=== PATIENT | female | born 1960 | race Caucasian/White ===

== ENCOUNTER 2020-04-08 09:33 | Outpatient (REF) | payer OTHER, SELFPAY ==
[2020-04-08 11:29] LABS: MANUAL DIFF FLAG NO
[2020-04-08 11:42] LABS: Basophils Percent Auto 0.6 % (0-2); Eosinophils Absolute Auto 0.1 X10*3/uL (0.0-0.4); Eosinophils Percent Auto 1.9 % (0-4); Hematocrit 41.1 % (37-47); Hemoglobin 13.1 g/dl (12.0-16.0); Imm Gran Abs Auto 0.02 X10*3/uL (0.00-0.03); Imm Gran Pct Auto 0.3 % (0.0-0.4); Lymphocytes Percent Auto 31.9 % (20-40); Mean Corpuscular HGB Conc 31.9 g/dl (31.0-35.0); Mean Corpuscular Hemoglobin 29.4 pg (27.0-33.0); Mean Corpuscular Volume 92.4 fL (80-98); Mean Platelet Volume 9.6 fL (9.4-12.3); Monocytes Absolute Auto 0.5 X10*3/uL (0.1-1.2); Monocytes Percent Auto 7.2 % (2-11); Neutrophils Absolute Auto 3.6 X10*3/uL (2.0-8.3); Neutrophils Percent Auto 58.1 % (45-73); Platelet Count 315 X10*3/uL (160-400); Red Blood Count 4.45 X10*6/uL (4.20-5.50); Red Cell Distribution Width 12.7 % (11.0-16.0); White Blood Count 6.2 X10*3/uL (4.8-10.8)
[2020-04-08 12:37] LABS: Anion Gap 14 (12-20); Blood Urea Nitrogen 10 mg/dL (9-16); Calcium 9.1 mg/dL (8.4-10.2); Carbon Dioxide 26 mmol/L (22-29); Chloride 106 mmol/L (96-108); Cholesterol 173 mg/dL; Estimated Glomerular Filt Rate > 60; Glucose Fasting 110 mg/dL (60-99); HDL Cholesterol 48 mg/dL; LDL Cholesterol Calculated 99 mg/dl; Potassium 4.9 mmol/l (3.3-5.1); Sodium 141 mmol/L (135-145); Triglycerides 131 mg/dL
== END 2020-04-08 09:34 | disposition home or self-care (01) ==
LOC: HO.HMGCLDS 09:33
PROVIDERS: PCP Internal Medicine; Visit Provider Internal Medicine
DX: E78.9 Disorder of lipoprotein metabolism, unspecified (principal); F33.2 Major depressive disorder, recurrent severe without psychotic features
CPT/HCPCS: 36415; 80048; 80061; 85025

== ENCOUNTER 2020-11-03 11:39 | Outpatient (REF) | payer OTHER, SELFPAY ==
[2020-11-03 14:43] LABS: Alanine Aminotransferase 33 U/L (0-31); Alkaline Phosphatase 76 U/L (39-117); Anion Gap 15 (12-20); Aspartate Amino Transferase 24 U/L (5-31); Bilirubin Total 0.6 mg/dL (0.0-1.0); Blood Urea Nitrogen 10 mg/dL (9-16); Calcium 10.2 mg/dL (8.4-10.2); Carbon Dioxide 24 mmol/L (22-29); Chloride 105 mmol/L (96-108); Cholesterol 172 mg/dL; Estimated Glomerular Filt Rate > 60; Glucose Fasting 139 mg/dL (60-99); HDL Cholesterol 54 mg/dL; LDL Cholesterol Calculated 96 mg/dl; Potassium 5.3 mmol/L (3.3-5.1); Sodium 139 mmol/L (135-145); Total Protein 7.9 g/dL (6.5-8.0); Triglycerides 114 mg/dL
== END 2020-11-03 11:40 | disposition home or self-care (01) ==
LOC: HO.HMGCLDS 11:39
PROVIDERS: PCP Internal Medicine; Visit Provider Internal Medicine
DX: Z00.01 Encounter for general adult medical examination with abnormal findings (principal); E78.9 Disorder of lipoprotein metabolism, unspecified; E66.09 Other obesity due to excess calories
CPT/HCPCS: 36415; 80053; 80061

== ENCOUNTER 2020-11-04 08:38 | Outpatient (REF) | payer OTHER, SELFPAY ==
[2020-11-04 12:22] LABS: Estimated Average Glucose 114 mg/dL; Hemoglobin A1c % 5.6 %
== END 2020-11-04 08:39 | disposition home or self-care (01) ==
LOC: HO.HMGCLDS 08:38
PROVIDERS: PCP Internal Medicine; Visit Provider Internal Medicine
DX: R73.01 Impaired fasting glucose (principal)
CPT/HCPCS: 36415; 83036

== ENCOUNTER 2020-12-09 13:06 | Outpatient (REF) | payer OTHER, SELFPAY ==
--- NOTE | ~2020-12-09 | MM_ITS ---
EXAMINATION: MM SCREENING DIGITAL BREAST TOMOSYNTHESIS, BILATERAL CLINICAL INFORMATION: Screening. Asymptomatic. The lifetime risk of breast cancer based on the Tyrer-Cuzick Model is 9.8%. COMPARISON: Mammography: September 05, 2018 and studies dating back to January 06, 2009 TECHNIQUE: Digital breast tomosynthesis is performed in both the craniocaudal and mediolateral oblique views along with computer-aided detection (CAD). Synthesized 2D images are generated from the tomosynthesis. FINDINGS: There are scattered areas of fibroglandular density (ACR BI-RADS breast composition Category b). There are no new significant masses, abnormal calcifications, or other abnormalities. Some stable circumscribed densities are present likely related to intramammary lymph nodes. MM/MM tomosynthesis screening BI IMPRESSION: There are no significant changes from prior study. ASSESSMENT: BI-RADS 2: Benign RECOMMENDATION: Routine annual mammography screening. This patient's information was entered into a reminder system with a target due date for their next mammogram.
== END 2020-12-09 13:07 | disposition home or self-care (01) ==
LOC: HO.MAMMO 13:06
PROVIDERS: PCP Internal Medicine; Visit Provider Internal Medicine
DX: Z12.31 Encounter for screening mammogram for malignant neoplasm of breast (principal)
CPT/HCPCS: 77063; 77067

== ENCOUNTER 2020-12-14 15:57 | Emergency (ER) | payer OTHER, SELFPAY ==
--- NOTE | 2020-12-14 | ECG_ITS ---
Test Reason : DIZZINESS Blood Pressure : / mmHG Vent. Rate : 070 BPM Atrial Rate : 070 BPM P-R Int : 130 ms QRS Dur : 082 ms QT Int : 406 ms P-R-T Axes : 048 008 046 degrees QTc Int : 438 ms Normal sinus rhythm Normal ECG When compared with ECG of 20-FEB-2018 13:01, No significant change was found Referred By: Generic ED Physician Electronically Signed By:Aamir Springer
--- NOTE | ~2020-12-14 | CT_ITS ---
EXAMINATION: CT HEAD WITHOUT CONTRAST CLINICAL INFORMATION: New onset dizziness COMPARISON: None TECHNIQUE: Contiguous axial imaging was performed from the skull base to vertex without intravenous administration of contrast. This CT examination was performed using dose optimization techniques as appropriate, variously including the following: *Automated exposure control *Adjustment of mA and/or kV according to patient size (this includes techniques or standardized protocols for targeted exams where dose is matched to indication/reason for exam; i.e. extremities or head) *Use of iterative reconstruction technique DLP: 665 mGy-cm FINDINGS: There is no evidence of acute intracranial hemorrhage or territorial infarction. No abnormal mass effect or midline shift is seen. Zuñiga to white matter differentiation is well preserved. No extra-axial fluid collections are identified. The ventricles are normal in size. There is no abnormal attenuation within the brain parenchyma. The osseous structures and soft tissues are normal. Mild mucosal thickening in the right maxillary sinus. Right-sided dental implants breach the inferior most aspect of the right maxillary sinus. CT/CT head/brain wo con IMPRESSION: No acute intracranial pathology.
--- NOTE | ~2020-12-14 | XR_ITS ---
EXAMINATION: XR CHEST CLINICAL INFORMATION: Dizziness COMPARISON: 02/20/2018 TECHNIQUE: Frontal view of the chest was obtained. FINDINGS: No significant abnormality is noted involving the heart, lungs, mediastinum, bony thorax or soft tissues. XR/XR chest 1V IMPRESSION: Unremarkable examination.
[2020-12-14 17:15] VITALS: BP 175/79; PULSE 82; RESP 16; TEMP 37; O2SAT 97; BMI 30.2
[2020-12-14 17:43] LABS: MANUAL DIFF FLAG NO
[2020-12-14 17:47] LABS: Basophils Absolute Auto 0.1 X10*3/uL (0.0-0.2); Basophils Percent Auto 0.6 % (0-2); Eosinophils Absolute Auto 0.1 X10*3/uL (0.0-0.4); Eosinophils Percent Auto 1.3 % (0-4); Hematocrit 39.2 % (37-47); Hemoglobin 12.9 g/dl (12.0-16.0); Imm Gran Abs Auto 0.04 X10*3/uL (0.00-0.03); Imm Gran Pct Auto 0.5 % (0.0-0.4); Lymphocytes Absolute Auto 2.5 X10*3/uL (1.2-4.9); Lymphocytes Percent Auto 28.4 % (20-40); Mean Corpuscular HGB Conc 32.9 g/dl (31.0-35.0); Mean Corpuscular Hemoglobin 29.9 pg (27.0-33.0); Mean Platelet Volume 9.2 fL (9.4-12.3); Monocytes Absolute Auto 0.7 X10*3/uL (0.1-1.2); Monocytes Percent Auto 8.6 % (2-11); Neutrophils Absolute Auto 5.2 X10*3/uL (2.0-8.3); Neutrophils Percent Auto 60.6 % (45-73); Platelet Count 324 X10*3/uL (160-400); Red Blood Count 4.31 X10*6/uL (4.20-5.50); Red Cell Distribution Width 12.6 % (11.0-16.0); White Blood Count 8.6 X10*3/uL (4.8-10.8)
[2020-12-14 18:13] LABS: Anion Gap 15 (12-20); Blood Urea Nitrogen 13 mg/dL (9-16); Calcium 9.8 mg/dL (8.4-10.2); Carbon Dioxide 23 mmol/L (22-29); Chloride 107 mmol/L (96-108); Creatinine Clr Calc Pharmacy 66.6; Estimated Glomerular Filt Rate > 60; Glucose Random 101 mg/dL (60-115); Potassium 4.4 mmol/L (3.3-5.1); Sodium 141 mmol/L (135-145)
[2020-12-14 18:17] LABS: Troponin-I High Sensitivity 3.8 ng/L (<3.5-17.0)
[2020-12-14 21:02] VITALS: BP 171/67; PULSE 75; RESP 18; O2SAT 99
--- NOTE | 2020-12-14 21:20 | ED_ITS ---
HPI - Dizziness General Chief Complaint: Dizziness Stated Complaint: dizzy Time Seen by Provider: 12/14/20 21:07 Source: patient Mode of arrival: ambulatory Limitations: no limitations History of Present Illness HPI Narrative: Patient comes emergency room complaining of ?dizzy spells?. Patient states they are intermittent, happen randomly, states she feels off- balance, the room spinning, sometimes last up to 1/2 hour and then they self- resolved. Patient states it has been 5 days since she initially had the 1st dizzy spell. At this time, patient does not have dizziness. Only complaining of a headache in the front, denies visual changes, no fall Related Data Home Medications Medication Instructions Recorded Confirmed citalopram 40 mg tablet 40 mg PO DAILY 03/31/20 11/03/20 propranolol 20 mg tablet 40 mg PO BID 11/03/20 11/03/20 zolpidem 10 mg tablet 10 mg PO BEDTIME PRN 11/03/20 11/03/20 Previous Rx's Medication Instructions Recorded simvastatin 20 mg tablet 20 mg PO BEDTIME #90 tab 12/07/20 diazepam [Valium] 2 mg PO TID PRN #6 tab 12/14/20 meclizine 25 mg PO TID PRN #14 tab 12/14/20 Allergies Allergy/AdvReac Type Severity Reaction Status Date / Time codeine Allergy Unknown T3 messes Verified 11/03/20 10:59 with her stomach gabapentin Allergy Unknown hives Verified 11/03/20 10:59 Review of Systems Review of Systems: Constitutional : No Weight loss, No Fever, No Chills, No Night Sweats, No Fatigue, No Malaise ENT/Mouth : No Hearing loss, No Ear Pain, No Nasal Congestion, No Sinus Pain, No Hoarseness, No sore throat, No Rhinorrhea, No Swallowing Difficulty Eyes: No Eye Pain, No Swelling, No Redness, No Foreign Body, No Discharge, No Vision Changes Cardiovascular : No Chest Pain, No SOB, No Dyspnea on Exertion, No Orthopnea, No Edema, No Palpitations Respiratory : No Cough, No Sputum, No Wheezing, No Smoke Exposure, No Dyspnea Gastrointestinal : No Nausea, No Vomiting, No Diarrhea, No Constipation, No abdominal Pain, No Hematochezia, No Melena Genitourinary : no irregular bleeding, No Dysuria, No Urinary Frequency, No Hematuria, No Urinary Incontinence, No Urgency, No Flank Pain, No Urinary Flow Changes, No Hesitancy Musculoskeletal : No joint pain, No Myalgias, No Joint Swelling Skin : No Skin Lesions, No rash Neuro : No Weakness, No Numbness, No Paresthesias, No Loss of Consciousness, complaining of feeling off balance, room spinning, dizzy, frontal headache for 3 days Psych : No Anxiety/Panic, No Depression, No SI/HI/AH/VH, No Social Issues, Heme/Lymph: No Bruising, No Bleeding,No Lymphadenopathy Endocrine : No Polyuria, No Polydipsia, No Temperature Intolerance [facility] Past Medical History Medical History Depression, major, severe recurrence Lipid disorder Surgical History History of appendectomy History of breast biopsy History of section History of colonoscopy History of total abdominal hysterectomy Hx of cholecystectomy Family History Family History Mother Breast cancer COPD (chronic obstructive pulmonary disease) Maternal Grandmother No problems noted. Paternal Grandmother Breast cancer Maternal Aunt Breast cancer Social History Social History Alcohol intake: never Patient Tobacco Use Status: Never used Tobacco Smoked in Last 30 Days: No Use of substances other than those prescribed or required for medical reasons: No Advance Directives: No Advance Directives Information Provided: Yes Physical Exam Vital Signs: Vital Signs: Last Vital Signs Temp 98.8 F 12/14/20 22:00 Pulse 73 12/14/20 22:08 Resp 17 12/14/20 22:00 BP 191/89 H 12/14/20 22:08 Pulse Ox 99 12/14/20 22:00 Body Mass Index 30.2 Appearance: Alert. Oriented X3. No acute distress. Eyes: Pupils equal, round and reactive to light. Mild nystagmus bilaterally with head movements ENT: Pharynx normal. Neck: Normal inspection. Neck supple. No lymph nodes noted. No crepitus CVS: Normal heart rate and rhythm. Pulses normal. Normal S1 and S2 Respiratory: No respiratory distress. Breath sounds normal. No Wheezing. No rales Abdomen: Soft and nontender. No rigidity. No distention. Skin: Skin warm and dry. Normal skin color. Normal skin turgor. Extremities: No lower extremity edema. No Lacerations. No Rash Neuro: Oriented X 3. No motor deficit. No sensory deficit. Moving all extermities. No slurred speech. Course Course Course Narrative: Patient states that she no longer has headache, no longer dizzy, patient did well after 1 dose of Valium and meclizine. I discussed with the patient that her blood pressure is also on the higher side. I discussed with the patient that we can start treatment with hydrochlorothiazide, patient states that usually her blood pressure runs on the lower side, she is going to take a few blood pressures at pharmacies and then follow up with her primary care physician before starting any medications. Othe rwise, patient is asymptomatic at this time. MDM - Dizziness Lab Data Result diagrams: 12/14/20 17:36 12/14/20 17:36 Labs: Lab Results 12/14/20 12/14/20 12/14/20 Range/Units 17:36 17:36 17:36 WBC 8.6 (4.8-10.8) X10*3/uL RBC 4.31 (4.20-5.50) X10*6/uL Hgb 12.9 (12.0-16.0) g/dl Hct 39.2 (37-47) % MCV 91.0 (80-98) fL MCH 29.9 (27.0-33.0) pg MCHC 32.9 (31.0-35.0) g/dl RDW 12.6 (11.0-16.0) % Plt Count 324 (160-400) X10*3/uL MPV 9.2 L (9.4-12.3) fL Immature Gran % (Auto) 0.5 H (0.0-0.4) % Neut % (Auto) 60.6 (45-73) % Lymph % (Auto) 28.4 (20-40) % Campbell % (Auto) 8.6 (2-11) % Eos % (Auto) 1.3 (0-4) % Baso % (Auto) 0.6 (0-2) % Lymph # (Auto) 2.5 (1.2-4.9) X10*3/uL Campbell # (Auto) 0.7 (0.1-1.2) X10*3/uL Eos # (Auto) 0.1 (0.0-0.4) X10*3/uL Baso # (Auto) 0.1 (0.0-0.2) X10*3/uL Abs Immat Gran (auto) 0.04 H (0.00-0.03) X10*3/uL Absolute Neuts (auto) 5.2 (2.0-8.3) X10*3/uL Absolute Nucleated RBC 0.000 (0.0-0.012) X10*3/uL Nucleated RBC % (auto) 0.0 (0.0-0.2) /100WBC Sodium 141 (135-145) mmol/L Potassium 4.4 (3.3-5.1) mmol/L Chloride 107 (96-108) mmol/L Carbon Dioxide 23 (22-29) mmol/L Anion Gap 15 (12-20) BUN 13 (9-16) mg/dL Creatinine 0.83 (0.5-1.4) mg/dL Estim Creat Clear Calc 66.6 Estimated GFR > 60 Random Glucose 101 (60-115) mg/dL Calcium 9.8 (8.4-10.2) mg/dL Troponin I High Sens 3.8 (<3.5-17.0) ng/L 12/14/20 Range/Units 21:02 WBC (4.8-10.8) X10*3/uL RBC (4.20-5.50) X10*6/uL Hgb (12.0-16.0) g/dl Hct (37-47) % MCV (80-98) fL MCH (27.0-33.0) pg MCHC (31.0-35.0) g/dl RDW (11.0-16.0) % Plt Count (160-400) X10*3/uL MPV (9.4-12.3) fL Immature Gran % (Auto) (0.0-0.4) % Neut % (Auto) (45-73) % Lymph % (Auto) (20-40) % Campbell % (Auto) (2-11) % Eos % (Auto) (0-4) % Baso % (Auto) (0-2) % Lymph # (Auto) (1.2-4.9) X10*3/uL Campbell # (Auto) (0.1-1.2) X10*3/uL Eos # (Auto) (0.0-0.4) X10*3/uL Baso # (Auto) (0.0-0.2) X10*3/uL Abs Immat Gran (auto) (0.00-0.03) X10*3/uL Absolute Neuts (auto) (2.0-8.3) X10*3/uL Absolute Nucleated RBC (0.0-0.012) X10*3/uL Nucleated RBC % (auto) (0.0-0.2) /100WBC Sodium (135-145) mmol/L Potassium (3.3-5.1) mmol/L Chloride (96-108) mmol/L Carbon Dioxide (22-29) mmol/L Anion Gap (12-20) BUN (9-16) mg/dL Creatinine (0.5-1.4) mg/dL Estim Creat Clear Calc Estimated GFR Random Glucose (60-115) mg/dL Calcium (8.4-10.2) mg/dL Troponin I High Sens 4.0 (<3.5-17.0) ng/L Imaging Data CT scan - head: Radiologist's impression: FINDINGS: There is no evidence of acute intracranial hemorrhage or territorial infarction. No abnormal mass effect or midline shift is seen. Zuñiga to white matter differentiation is well preserved. No extra-axial fluid collections are identified. The ventricles are normal in size. There is no abnormal attenuation within the brain parenchyma. The osseous structures and soft tissues are normal. Mild mucosal thickening in the right maxillary sinus. Right-sided dental implants breach the inferior most aspect of the right maxillary sinus. CT/CT head/brain wo con IMPRESSION: No acute intracranial pathology. Discharge Plan Discharge Clinical Impression: Vertigo High blood pressure Qualifiers: Hypertension type: unspecified Qualified Code(s): I10 - Essential (primary) hypertension Patient Disposition: Home, Self-Care Instructions: Vertigo (ED) Additional Instructions: Please follow-up with your primary care physician tomorrow. Please discuss with your PCP that your blood pressure was high in the emergency room. If you have any worsening or new symptoms, please return to the emergency room or call 911 Prescriptions: New meclizine 25 mg tablet 25 mg PO TID PRN (Reason: dizziness) Qty: 14 RF: 0 diazepam [Valium] 2 mg tablet 2 mg PO TID PRN (Reason: dizziness or vertigo) Qty: 6 RF: 0 No Action simvastatin 20 mg tablet 20 mg PO BEDTIME Qty: 90 RF: 1 citalopram 40 mg tablet 40 mg PO DAILY RF: 0 propranolol 20 mg tablet 40 mg PO BID RF: 0 zolpidem [Ambien] 10 mg tablet 10 mg PO BEDTIME PRNRF: 0
[2020-12-14] MEDS: Acetaminophen 325 MG TABLET 650 MG PO (21:27)
[2020-12-14] MEDS: Meclizine HCl 25 MG TABLET 50 MG PO (21:28)
[2020-12-14] MEDS: diazePAM 5 MG TABLET PO (21:28)
[2020-12-14 22:00] VITALS: BP 175/82; PULSE 69; RESP 17; TEMP 37.1; O2SAT 99
[2020-12-14 22:06] VITALS: BP 175/73; PULSE 63
[2020-12-14 22:07] VITALS: BP 186/71; PULSE 64
[2020-12-14 22:08] VITALS: BP 191/89; PULSE 73
--- NOTE | 2020-12-14 22:17 | PC.NURSE ---
Md TONEY AND FARRUKH HARRY IS AWARE OF PATIENT HIGH BLOOD PRESSURE ..
--- NOTE | 2020-12-14 22:38 | PC.NURSE ---
PATIENT WENT FOR A WALK WITH THIS PCT ,PATIENT STATED SHE FEEL FINE NOT DIZZY ANY MORE ,MD TONEY AND FARRUKH HARRY AWARE .
== END 2020-12-14 23:22 | disposition home or self-care (01) ==
PROVIDERS: Emergency Provider Emergency Medicine; PCP Internal Medicine
DX: R42 Dizziness and giddiness (principal); I10 Essential (primary) hypertension
CPT/HCPCS: 36415; 70450; 71045; 80048; 84484; 85025; 93005; 99285

== ENCOUNTER 2021-08-08 12:52 | Outpatient (REF) | payer OTHER, SELFPAY ==
[2021-08-08 14:00] LABS: Hematocrit 37.3 % (37.0-47.0); Hemoglobin 12.1 g/dl (12.0-16.0); Mean Corpuscular HGB Conc 32.4 g/dl (31.0-35.0); Mean Corpuscular Hemoglobin 30.1 pg (27.0-33.0); Mean Corpuscular Volume 92.8 fL (80.0-98.0); Mean Platelet Volume 9.5 fL (9.4-12.3); Platelet Count 328 X10*3/uL (160-400); Red Blood Count 4.02 X10*6/uL (4.20-5.50); Red Cell Distribution Width 13.3 % (11.0-16.0); White Blood Count 7.5 X10*3/uL (4.8-10.8)
[2021-08-08 14:15] LABS: Alanine Aminotransferase 29 U/L (0-31); Albumin Level 4.4 g/dL (3.5-5.0); Alkaline Phosphatase 57 U/L (39-117); Anion Gap 14 (12-20); Aspartate Amino Transferase 26 U/L (5-31); Bilirubin Direct < 0.2 mg/dL (0.0-0.5); Bilirubin Total 0.4 mg/dL (0.0-1.0); Blood Urea Nitrogen 18 mg/dL (9-16); C Reactive Protein 0.27 mg/dL (< or = 0.50); Calcium 10.2 mg/dL (8.4-10.2); Carbon Dioxide 27 mmol/L (22-29); Chloride 102 mmol/L (96-108); Estimated Glomerular Filt Rate > 60; Glucose Random 100 mg/dL (60-115); Potassium 4.5 mmol/L (3.3-5.1); Sodium 138 mmol/L (135-145); Total Protein 7.1 g/dL (6.5-8.0)
[2021-08-08 14:30] LABS: Thyroid Stimulating Hormone 1.12 uIU/mL (0.32-4.0)
== END 2021-08-08 12:53 | disposition home or self-care (01) ==
LOC: HO.HMGCLDS 12:52
PROVIDERS: PCP Internal Medicine; Visit Provider Internal Medicine
DX: I10 Essential (primary) hypertension (principal)
CPT/HCPCS: 36415; 80048; 80076; 84443; 85027; 86140

== ENCOUNTER 2021-08-24 11:17 | Outpatient (REF) | payer OTHER, SELFPAY ==
[2021-08-24 14:02] LABS: Alanine Aminotransferase 31 U/L (0-31); Albumin Level 4.7 g/dL (3.5-5.0); Alkaline Phosphatase 62 U/L (39-117); Anion Gap 14 (12-20); Aspartate Amino Transferase 23 U/L (5-31); Bilirubin Total 0.6 mg/dL (0.0-1.0); Blood Urea Nitrogen 13 mg/dL (9-16); Calcium 10.3 mg/dL (8.4-10.2); Carbon Dioxide 26 mmol/L (22-29); Chloride 102 mmol/L (96-108); Cholesterol 158 mg/dL; Estimated Glomerular Filt Rate > 60; Glucose Fasting 109 mg/dL (60-99); HDL Cholesterol 46 mg/dL; LDL Cholesterol Calculated 93 mg/dl; Potassium 4.4 mmol/L (3.3-5.1); Sodium 138 mmol/L (135-145); Total Protein 7.6 g/dL (6.5-8.0); Triglycerides 97 mg/dL
== END 2021-08-24 11:18 | disposition home or self-care (01) ==
LOC: HO.HMGCLDS 11:17
PROVIDERS: PCP Internal Medicine; Referring Provider Internal Medicine; Visit Provider Internal Medicine
DX: E66.09 Other obesity due to excess calories (principal); E78.9 Disorder of lipoprotein metabolism, unspecified
CPT/HCPCS: 36415; 80053; 80061

== ENCOUNTER 2021-11-23 13:40 | Outpatient (REF) | payer OTHER, SELFPAY ==
--- NOTE | ~2021-11-23 | US_ITS ---
EXAMINATION: US THYROID CLINICAL INFORMATION: Palpable thyroid. COMPARISON: None TECHNIQUE: Linear transducer grayscale and color Doppler examination with attention to the region of the thyroid. FINDINGS: SIZE: Measurements of the thyroid lobes and nodules are given in sagittal, anteroposterior and transverse dimensions respectively. Right Thyroid Lobe: 3.3 x 1.4 x 1.4 cm, volume 3.4 mL. Parenchyma: The gland echotexture is homogeneous. Thyroid vascularity is normal. Left Thyroid Lobe: 3.6 x 1.2 x 1.0 cm, volume 2.3 mL. Parenchyma: The gland echotexture is homogeneous. Thyroid vascularity is normal. Isthmus: 0.2 cm in maximum AP dimension. Estimated total number of nodules greater than or equal to 1 cm: 0. Horse Doctor nodules are described as follows: 1. Location: Right superior. Size: 0.4 x 0.3 x 0.3 cm, volume 0.02 mL. Nodule characteristics: Composition: Spongiform (0). Echogenicity: Anechoic (0). Shape: Not taller than wide (0). Margins: Smooth (0). Echogenic Foci: None (0). ACR TI-RADS total points: 0 ACR TI-RADS category: 1 2. Location: Right mid. Size: 0.5 x 0.4 x 0.4 cm, volume 0.05 mL. Nodule characteristics: Composition: Cystic(0). ACR TI-RADS total points: 0 ACR TI-RADS category: 1 NODES: No lymphadenopathy is seen in the tissue surrounding the thyroid gland. US/US thyroid IMPRESSION: Normal homogeneous thyroid gland with subcentimeter thyroid nodules, nonsuspicious. Recommend followup as per TI-RADS recommendation. ACR TI-RADS RECOMMENDATION REFERENCE: Ultrasound-guided fine-needle aspiration, followup ultrasound, no further follow up. * TR1 (0 point) and TR 2 (2 points): No FNA or follow up * TR3 (3 points): FNA if more than or equal to 2.5 cm in maximum dimension, followup ultrasound in 1, 3 and 5 years if 1.5 to 2.4 cm in maximum dimension. * TR4 (4-6 points): FNA if more than or equal to 1.5 cm in maximum dimension, followup ultrasound in 1, 2, 3 and 5 years if 1 to 1.4 cm in maximum dimension. * TR5 (more than or equal to 7 points): FNA if more than or equal to 1 cm in maximum dimension, followup ultrasound every year for 5 years if 0.5 to 0.9 cm in maximum dimension. * TR3, TR4 or TR5 nodules that are below the size threshold for follow up receive no follow up.
== END 2021-11-23 13:41 | disposition home or self-care (01) ==
LOC: HO.HMGCX 13:40
PROVIDERS: PCP Internal Medicine; Visit Provider Internal Medicine
DX: E07.89 Other specified disorders of thyroid (principal)
CPT/HCPCS: 76536

== ENCOUNTER 2022-03-01 10:38 | Outpatient (REF) | payer OTHER, SELFPAY ==
[2022-03-01 13:59] LABS: MANUAL DIFF FLAG NO
[2022-03-01 14:04] LABS: Basophils Percent Auto 0.4 % (0-2); Eosinophils Absolute Auto 0.1 X10*3/uL (0.0-0.4); Eosinophils Percent Auto 1.4 % (0-4); Hematocrit 40.5 % (37.0-47.0); Hemoglobin 13.5 g/dl (12.0-16.0); Imm Gran Abs Auto 0.02 X10*3/uL (0.00-0.03); Imm Gran Pct Auto 0.3 % (0.0-0.4); Lymphocytes Absolute Auto 1.9 X10*3/uL (1.2-4.9); Mean Corpuscular HGB Conc 33.3 g/dl (31.0-35.0); Mean Corpuscular Hemoglobin 30.3 pg (27.0-33.0); Mean Corpuscular Volume 90.8 fL (80.0-98.0); Monocytes Absolute Auto 0.5 X10*3/uL (0.1-1.2); Monocytes Percent Auto 6.4 % (2-11); Neutrophils Absolute Auto 4.6 x10*3/uL (2.0-8.3); Neutrophils Percent Auto 64.5 % (45-73); Platelet Count 368 X10*3/uL (160-400); Red Blood Count 4.46 X10*6/uL (4.20-5.50); Red Cell Distribution Width 12.6 % (11.0-16.0); White Blood Count 7.1 X10*3/uL (4.8-10.8)
[2022-03-01 14:36] LABS: Alanine Aminotransferase 33 U/L (0-31); Alkaline Phosphatase 73 U/L (39-117); Anion Gap 19 (12-20); Aspartate Amino Transferase 28 U/L (5-31); Bilirubin Total 0.6 mg/dL (0.0-1.0); Blood Urea Nitrogen 12 mg/dL (9-16); Calcium 10.2 mg/dL (8.4-10.2); Carbon Dioxide 24 mmol/L (22-29); Chloride 100 mmol/L (96-108); Cholesterol 172 mg/dL; Estimated Glomerular Filt Rate > 60; Glucose Fasting 129 mg/dL (60-99); HDL Cholesterol 45 mg/dL; LDL Cholesterol Calculated 97 mg/dl; Sodium 139 mmol/L (135-145); Total Protein 7.8 g/dL (6.5-8.0); Triglycerides 151 mg/dL
[2022-03-01 15:01] LABS: TSH reflex Free T4 1.45 uIU/mL (0.32-4.0)
== END 2022-03-01 10:39 | disposition home or self-care (01) ==
LOC: HO.HMGCLDS 10:38
PROVIDERS: PCP Internal Medicine; Visit Provider Internal Medicine
DX: Z00.01 Encounter for general adult medical examination with abnormal findings (principal); E78.9 Disorder of lipoprotein metabolism, unspecified; F33.2 Major depressive disorder, recurrent severe without psychotic features; I10 Essential (primary) hypertension; R73.01 Impaired fasting glucose; E07.89 Other specified disorders of thyroid
CPT/HCPCS: 36415; 80053; 80061; 84443; 85025

== ENCOUNTER 2022-04-11 11:25 | Outpatient (REF) | payer OTHER, SELFPAY ==
--- NOTE | ~2022-04-11 | MM_ITS ---
EXAMINATION: MM SCREENING DIGITAL BREAST TOMOSYNTHESIS, BILATERAL CLINICAL INFORMATION: Screening. Asymptomatic. COMPARISON: Mammography: December 09, 2020 and studies dating back to June 07, 2015 TECHNIQUE: Digital breast tomosynthesis is performed in both the craniocaudal and mediolateral oblique views along with computer-aided detection (CAD). Synthesized 2D images are generated from the tomosynthesis. FINDINGS: There are scattered areas of fibroglandular density (ACR BI-RADS breast composition Category b). There are no significant masses, abnormal calcifications, or other abnormalities. MM/MM tomosynthesis screening BI IMPRESSION: No significant changes from prior exam. ASSESSMENT: BI-RADS 1: Negative RECOMMENDATION: Routine annual mammography screening. This patient's information was entered into a reminder system with a target due date for their next mammogram.
== END 2022-04-11 11:26 | disposition home or self-care (01) ==
LOC: HO.MAMMO 11:25
PROVIDERS: Visit Provider Internal Medicine
DX: Z12.31 Encounter for screening mammogram for malignant neoplasm of breast (principal)
CPT/HCPCS: 77063; 77067

== ENCOUNTER 2022-05-18 18:12 | Outpatient (REF) | payer OTHER, SELFPAY | END 2022-05-18 18:13 | disposition home or self-care (01) | LOC: HO.MRI 18:12 | PROVIDERS: PCP Internal Medicine; Visit Provider Otolaryngology | DX: H81.4 Vertigo of central origin (principal) | CPT/HCPCS: 70553 ==

== ENCOUNTER 2022-06-22 10:11 | Outpatient (REF) | payer OTHER, SELFPAY ==
--- NOTE | ~2022-06-22 | FL_ITS ---
EXAMINATION: FL BARIUM SWALLOW CLINICAL INFORMATION: Dysphagia. Persistent cough. COMPARISON: Chest radiograph 12/14/2020 TECHNIQUE: Barium swallow examination is performed using fluoroscopic evaluation in addition to multiple fluoroscopic spot views, including cine images during swallowing. The patient is imaged both upright and prone and using both thick and thin sulfate along with effervescent granules. Barium pill challenge also performed. Fluoroscopy time: 1.6 minutes DAP: 5.352 Gycm2 Images: 25 FINDINGS: Swallowing function is normal and there is no aspiration. The cervical esophagus has no web or diverticulum or stricture. The cervical thoracic junction appears normal. There is rapid transit of the barium pill from mouth to stomach. The thoracic esophagus shows normal motility with no obstruction, stricture, or ulceration. There is no hiatal hernia or reflux seen despite use of provocative maneuvers (prone Valsalva and water siphon test, respectively). A cursory view of the upper abdomen shows no gastric outlet obstruction. FL/FL barium swallow IMPRESSION: Normal study.
== END 2022-06-22 10:12 | disposition home or self-care (01) ==
LOC: HO.XRAY 10:11
PROVIDERS: PCP Internal Medicine; Visit Provider Radiology Diagnostic Radiology
DX: R13.10 Dysphagia, unspecified (principal)
CPT/HCPCS: 74220

== ENCOUNTER 2022-07-05 13:49 | Outpatient (REF) | payer OTHER, SELFPAY ==
[2022-07-05 15:07] LABS: Blood Urea Nitrogen 9 mg/dL (9-16); Estimated Glomerular Filt Rate > 60
== END 2022-07-05 13:50 | disposition home or self-care (01) ==
LOC: HO.LAB 13:49
PROVIDERS: PCP Internal Medicine; Visit Provider Otolaryngology
DX: Z01.812 Encounter for preprocedural laboratory examination (principal)
CPT/HCPCS: 36415; 82565; 84520

== ENCOUNTER 2022-07-11 07:57 | Outpatient (REF) | payer OTHER, SELFPAY ==
--- NOTE | ~2022-07-11 | CT_ITS ---
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 This CT examination was performed using dose optimization techniques as appropriate, variously including the following: *Automated exposure control. *Adjustment of mA and/or kV according to patient size (this includes techniques or standardized protocols for targeted exams where dose is matched to indication/reason for exam; i.e. extremities or head). *Use of iterative reconstruction technique. DLP: 382 mGy-cm. FINDINGS: Nasopharynx/skull base: The fat planes of the skull base and soft tissues of the nasopharynx are unremarkable. Ankle disease within the right greater than left maxillary sinus alveolar recesses with some aerosolized debris in the lateral right maxillary sinus. The mastoid air cells are well aerated. The temporomandibular joints are normal. Suprahyoid neck: Incidental torus mandibulari bilaterally. The soft palate contacts the posterior oral tongue and posterior oropharyngeal wall focally obliterating the airway at this level. Boutonniere defects of the mylohyoid muscles with partially herniated sublingual glands and the submandibular space, more pronounced on the left. Right palatine tonsillolith. The parotid and submandibular glands are unremarkable within limitations of motion artifact. There is accessory parotid tissue overlying the masseters, right greater than left. Several morphologically benign-appearing and nonpathologically enlarged intraparotid/periparotid lymph nodes. Stable nonspecific 1.0 x 0.8 cm enhancing lesion within the posterior aspect of the left parapharyngeal space abutting the anterior margin of the carotid space. Infrahyoid neck: The vocal cords are apposed to metastatic imaging limiting assessment of the glottis. The hypopharynx is unremarkable within the limitations of motion artifact. Thyroid: Subcentimeter thyroid nodules seen on ultrasound are not well appreciated on CT. Lymph nodes: There is no cervical chain lymphadenopathy. Lung apices: The partially visualized lung apices are clear. Vascular structures: Bovine configuration of the aortic arch with trace calcific plaque along the descending aorta and proximal brachiocephalic trunk. Calcific plaque of the bilateral common carotid bifurcations. Osseous structures: Multilevel cervical spondylosis with segmental opacification of the posterior longitudinal ligament at C4 and C5, contributing to apparent moderate spinal canal stenosis at C4-C5 with suspected mass effect along the ventral cord. Varying degrees of multilevel moderate to severe neural foraminal narrowing. Other: Diminutive vertebrobasilar system on the basis of [employer] complexes. Otherwise the intracranial structures are grossly unremarkable. Some secretions layering dependently in the esophagus. CT/CT soft tissue neck w IV con IMPRESSION: Motion degraded examination. Stable nonspecific 1.0 x 0.8 cm enhancing lesion within the posterior aspect of the left parapharyngeal space abutting the anterior margin of the carotid space.
== END 2022-07-11 07:58 | disposition home or self-care (01) ==
LOC: HO.CT 07:57
PROVIDERS: PCP Internal Medicine; Visit Provider Otolaryngology
DX: D11.0 Benign neoplasm of parotid gland (principal)
CPT/HCPCS: 70491

== ENCOUNTER 2022-11-09 12:03 | Outpatient (REF) | payer OTHER, SELFPAY ==
[2022-11-09 12:13] LABS: MANUAL DIFF FLAG NO
[2022-11-09 12:40] LABS: Basophils Percent Auto 0.5 % (0-2); Eosinophils Absolute Auto 0.1 X10*3/uL (0.0-0.4); Eosinophils Percent Auto 1.5 % (0-4); Hematocrit 38.7 % (37.0-47.0); Hemoglobin 12.5 g/dl (12.0-16.0); Imm Gran Abs Auto 0.03 X10*3/uL (0.00-0.03); Imm Gran Pct Auto 0.5 % (0.0-0.4); Lymphocytes Absolute Auto 1.8 X10*3/uL (1.2-4.9); Mean Corpuscular HGB Conc 32.3 g/dl (31.0-35.0); Mean Corpuscular Hemoglobin 30.2 pg (27.0-33.0); Mean Corpuscular Volume 93.5 fL (80.0-98.0); Mean Platelet Volume 9.8 fL (9.4-12.3); Monocytes Absolute Auto 0.5 X10*3/uL (0.1-1.2); Monocytes Percent Auto 7.7 % (2-11); Neutrophils Percent Auto 61.8 % (45-73); Platelet Count 331 X10*3/uL (160-400); Red Blood Count 4.14 X10*6/uL (4.20-5.50); Red Cell Distribution Width 12.9 % (11.0-16.0); White Blood Count 6.5 X10*3/uL (4.8-10.8)
[2022-11-09 12:45] LABS: Estimated Average Glucose 111 mg/dL; Hemoglobin A1c % 5.5 %
[2022-11-09 12:59] LABS: Alanine Aminotransferase 31 U/L (0-31); Albumin Level 4.5 g/dL (3.5-5.0); Alkaline Phosphatase 62 U/L (39-117); Anion Gap 13 (12-20); Aspartate Amino Transferase 25 U/L (5-31); Bilirubin Total 0.5 mg/dL (0.0-1.0); Blood Urea Nitrogen 13 mg/dL (9-16); Calcium 9.7 mg/dL (8.4-10.2); Carbon Dioxide 26 mmol/L (22-29); Chloride 103 mmol/L (96-108); Estimated Glomerular Filt Rate > 60; Glucose Fasting 118 mg/dL (60-99); Lipase 18 U/L (8-78); Potassium 4.1 mmol/L (3.3-5.1); Sodium 138 mmol/L (135-145); Total Protein 7.2 g/dL (6.5-8.0)
== END 2022-11-09 12:04 | disposition home or self-care (01) ==
LOC: HO.LAB 12:03
PROVIDERS: PCP Internal Medicine; Visit Provider Internal Medicine
DX: E78.9 Disorder of lipoprotein metabolism, unspecified (principal); F33.2 Major depressive disorder, recurrent severe without psychotic features; I10 Essential (primary) hypertension; M48.02 Spinal stenosis, cervical region; R73.9 Hyperglycemia, unspecified
CPT/HCPCS: 36415; 80053; 83036; 83690; 85025

== ENCOUNTER → 2022-11-13 14:24 | Outpatient (BNVA) | payer OTHER, SELFPAY | PROVIDERS: PCP Internal Medicine; Visit Provider Psychiatry & Neurology Neurology ==

== ENCOUNTER → 2023-03-05 14:51 | Outpatient (REF) | payer OTHER, SELFPAY | LOC: HO.SL 14:51 | PROVIDERS: PCP Internal Medicine; Visit Provider Psychiatry & Neurology Neurology | DX: E66.09 Other obesity due to excess calories (principal); R06.83 Snoring; R43.1 Parosmia; R40.0 Somnolence | CPT/HCPCS: 95806 ==

== ENCOUNTER → 2023-03-05 15:08 | Outpatient (BNV) | payer OTHER, SELFPAY | PROVIDERS: PCP Internal Medicine; Visit Provider Psychiatry & Neurology Neurology | DX: R06.83 Snoring (principal) | CPT/HCPCS: 95806 ==

== ENCOUNTER 2023-03-06 08:04 | Outpatient (AMB) | payer OTHER, SELFPAY ==
[2023-03-06 08:08] VITALS: BP 106/56; PULSE 56; O2SAT 97; BMI 34.7
--- NOTE | 2023-03-06 08:08 | MHC.PC.OV ---
Vital Signs 03/06/23 08:08 Height 5 ft 2 in Weight 190 lb BMI 34.7 BP 106/56 L Blood Pressure Location Rt brachial Position Sitting Pulse 56 Pulse Source Pulse Oximeter Pulse Oximetry (%) 97 Oxygen Delivery Method Room Air Intake Visit Reasons: 4 month follow up Allergies codeine Allergy (Unknown, Verified 03/06/23 08:08) T3 messes with her stomach gabapentin Allergy (Unknown, Verified 03/06/23 08:08) hives Medication List - Last Reconciled 03/06/23 by See Lee MD atenolol 50 mg PO DAILY 90 days baclofen 10 mg PO BEDTIME citalopram 40 mg PO DAILY hydrochlorothiazide 25 mg PO DAILY 90 days ibuprofen 600 mg PO BID PRN 15 days simvastatin 20 mg PO BEDTIME valacyclovir 1,000 mg (2 x 500 mg) PO BID zolpidem (Ambien) 10 mg PO BEDTIME PRN Tobacco use date assessed: 03/06/23 Fall risk assessment: No Falls in past year Last assessed Fall Risk: 03/06/23 Dental Screening Dental Screen Date: 03/06/23 Did you have a dental visit in the last 12 months?: No Did you have a dental problem in the last 6 months where you did not have access to dental care?: No Was dental information given to patient?: Patient has dentist HPI 4 month follow up HPI Details Patient is a 62-year-old female came in today for regular follow-up appointment Patient has seen Dr. Leblanc Neurology for her chronic neck pain and discogenic headache MRI was ordered which was canceled by the MRI department in January and it never got rescheduled. Patient says that she has been calling neurology office repeatedly and they keep saying that they will get back to her. I have recommended that she can go they personally and discuss it with them. X-ray done by me showed lot of arthritic changes in cervical spine with moderate cervical spine stenosis. She continued to complain of numbness and tingling in her left hand as well. Her blood pressure is stable she is taking atenolol 50 mg and hydrochlorothiazide 25 mg daily. At home it is running around 120 systolic today it is 106 systolic patient is declining any lightheadedness any weakness. Patient also takes simvastatin 20 mg for lipid control labs are due in May Patient is requesting refill for valacyclovir that she takes for cold sores but has been stable. BMI is elevated at 34.8 patient need to lose weight she is trying. She is complaining of itching in her left eye, patient says that she was babysitting her grandchild yesterday and she had apparent eye. At this time I do not see the signs of being I in her eye however there is slight erythema medial corner of left eye because of rubbing. I have written down name of Naphcon A, which is [id number] patient may use that and in between cold splashes into the I will help. Psychiatric management through Psychiatry. [facility] Medical History Hyperosmia Snoring Cervicogenic headache Depression, major, severe recurrence Lipid disorder Surgical History History of colonoscopy History of total abdominal hysterectomy History of section History of appendectomy Hx of cholecystectomy History of breast biopsy Family History Mother Breast cancer COPD (chronic obstructive pulmonary disease) Maternal Grandmother No problems noted. Paternal Grandmother Breast cancer Maternal Aunt Breast cancer Other Mental health disorder Substance use disorder Social History Housing: House Alcohol intake: never Patient Tobacco Use Status: Never used Tobacco e-Cigarette/Vaping Use: Never Used service: No Current occupational status: retired Cognitive needs: No Hearing needs: No Vision needs: No Questionnaire PHQ-9 Over the last 2 weeks, how often have you been bothered by any of the following problems? 1. Little interest or pleasure in doing things: several days 2. Feeling down, depressed, or hopeless: several days 3. Trouble falling or staying asleep, or sleeping too much: several days 4. Feeling tired or having little energy: several days 5. Poor appetite or overeating: several days 6. Feeling bad about yourself - or that you are a failure or have let yourself or your family down: several days 7. Trouble concentrating on things, such as reading the newspaper or watching television: several days 8. Moving or speaking so slowly that other people could have noticed. Or the opposite - being so fidgety or restless that you have been moving around a lot more than usual: not at all 9. Thoughts that you would be better off or of hurting yourself in some way: not at all Total score: 7 Depression Screening Interpretation: Positive Depression Screening Follow-up: Existing condition and In treatment 13185 - PHQ-9 Billing: Yes (Patient already seeing psychiatrist) Source: Developed by Drs. Josh Le, Jr Hamilton and colleagues, with an educational nisha from [employer]. Thrive Questionnaire Date Thrive assessed: 11/15/22 AUDIT C Alcohol Use Questionnaire (AUDIT-C) 1. How often do you have a drink containing alcohol?: Never 3. How often do you have six or more drinks on one occasion?: Never Total Score: 0 Score Reviewed/Action Taken: Yes DANIELA-7 AMB Questionnaire DANIELA-7 Date DANIELA - 7 assessed: 11/15/22 Source: Developed by Drs. Josh Le, Cammie Brennan, Jr Ortiz and colleagues, with an educational nisha from [employer]. Review of Systems Const Denies chills and Denies fever(s) ENT Denies epistaxis and Denies nasal discharge Card Denies chest pain Resp Denies chest congestion, Denies cough and Denies hemoptysis GI Denies diarrhea and Denies nausea Skin/Breast Denies rash Neuro Reports no additional complaints Psych Reports no additional complaints Endo Reports no additional complaints Physical exam (Primary Care) Vital Signs: Last Vital Signs Pulse 56 03/06/23 08:08 BP 106/56 L 03/06/23 08:08 Pulse Ox 97 03/06/23 08:08 Oxygen Delivery Method Room Air 03/06/23 08:08 BMI result Body Mass Index 34.7 Tobacco/Smoking Status: Tobacco use Status Tobacco use date assessed 03/06/23 03/06/23 08:09 Patient Tobacco Use Status Never used Tobacco 03/06/23 08:09 e-Cigarette/Vaping Use Never Used 03/06/23 08:09 PHQ-9: PHQ-9 Score PHQ-9: Total score 7 03/06/23 08:54 Depression Screening Interpretation: Positive Depression Screening Follow-up: Existing condition and In treatment Thrive Assessment: Date of Thrive Assessment Date Thrive assessed 11/15/22 03/06/23 08:09 Const General: cooperative, comfortable and no acute distress Orientation/consciousness: patient oriented x3 HENMT Head: Yes normocephalic Resp Effort & Inspection: normal respiratory effort, no cough and no stridor Cardio Rhythm: regular rhythm Heart sounds: S1 normal heart sound present and S2 normal heart sound present Skin General skin exam: turgor normal Neuro General: patient oriented x3, tone normal and moves all extremities Extrem Right lower extremity: no edema Left lower extremity: no edema Assessment and Plan Assessment & Plan (1) Hypertension: Code(s): I10 - Essential (primary) hypertension Qualifiers: Hypertension type: primary hypertension Qualified Code(s): I10 - Essential (primary) hypertension (2) Lipid disorder: Code(s): E78.9 - Disorder of lipoprotein metabolism, unspecified (3) Itch of eye, left: Code(s): H57.9 - Unspecified disorder of eye and adnexa (4) Impaired fasting blood sugar: Code(s): R73.01 - Impaired fasting glucose (5) Herpes simplex type 1 antibody positive: Code(s): B00.9 - Herpesviral infection, unspecified (6) Cervical stenosis of spinal canal: Code(s): M48.02 - Spinal stenosis, cervical region (7) Depression, major, severe recurrence: Code(s): F33.2 - Major depressive disorder, recurrent severe without psychotic features Qualifiers: Psychotic features: without psychotic features Qualified Code(s): F33.2 - Major depressive disorder, recurrent severe without psychotic features (8) Cervicogenic headache: Code(s): G44.86 - Cervicogenic headache Plan Patient is a 62-year-old female came in today for regular follow-up appointment Patient has seen Dr. Leblanc Neurology for her chronic neck pain and discogenic headache MRI was ordered which was canceled by the MRI department in January and it never got rescheduled. Patient says that she has been calling neurology office repeatedly and they keep saying that they will get back to her. I have recommended that she can go they personally and discuss it with them. X-ray done by me showed lot of arthritic changes in cervical spine with moderate cervical spine stenosis. She continued to complain of numbness and tingling in her left hand as well. Her blood pressure is stable she is taking atenolol 50 mg and hydrochlorothiazide 25 mg daily. At home it is running around 120 systolic today it is 106 systolic patient is declining any lightheadedness any weakness. Patient also takes simvastatin 20 mg for lipid control labs are due in May Patient is requesting refill for valacyclovir that she takes for cold sores but has been stable. BMI is elevated at 34.8 patient need to lose weight she is trying. Patient have a history of impaired fasting sugar however her hemoglobin A1c is stable She is complaining of itching in her left eye, patient says that she was babysitting her grandchild yesterday and she had apparent eye. At this time I do not see the signs of being I in her eye however there is slight erythema medial corner of left eye because of rubbing. I have written down name of Naphcon A, which is [id number] patient may use that and in between cold splashes into the I will help. Psychiatric management through Psychiatry. Medications: Refilled valacyclovir Take 2 tablets b.i.d. for one day at the onset of cold sore 1,000 mg (2 x 500 mg) PO BID 30 tabs 0RF Coding Level of Care Code Est Pt Level 4 (10063) Diagnoses Primary hypertension I10 Hypertension type: primary hypertension Lipid disorder E78.9 Itch of eye, left H57.9 Impaired fasting blood sugar R73.01 Herpes simplex type 1 antibody positive B00.9 Cervical stenosis of spinal canal M48.02 Severe episode of recurrent major depressive disorder, without psychotic features F33.2 Psychotic features: without psychotic features Cervicogenic headache G44.86
== END 2023-03-06 09:40 | disposition home or self-care (01) ==
PROVIDERS: PCP Internal Medicine; Visit Provider Internal Medicine
DX: I10 Essential (primary) hypertension (principal); E78.9 Disorder of lipoprotein metabolism, unspecified; H57.9 Unspecified disorder of eye and adnexa; F33.2 Major depressive disorder, recurrent severe without psychotic features; R73.01 Impaired fasting glucose; B00.9 Herpesviral infection, unspecified; M48.02 Spinal stenosis, cervical region; G44.86 Cervicogenic headache
CPT/HCPCS: 99214

== ENCOUNTER 2023-04-27 12:32 | Outpatient (REF) | payer MEDICARE, SELFPAY ==
--- NOTE | ~2023-04-27 | MM_ITS ---
EXAMINATION: MM SCREENING DIGITAL BREAST TOMOSYNTHESIS, BILATERAL CLINICAL INFORMATION: Screening. Asymptomatic. COMPARISON: Mammography: This study is compared with prior exams dating back to 2017. TECHNIQUE: Digital breast tomosynthesis is performed in both the craniocaudal and mediolateral oblique views along with computer-aided detection (CAD). Synthesized 2D images are generated from the tomosynthesis. FINDINGS: There are scattered areas of fibroglandular density (ACR BI-RADS breast composition Category b). There are no significant masses, abnormal calcifications, or other abnormalities. There is a biopsy tissue marker in the medial aspect of the right breast. It is associated with a small benign focal asymmetry. MM/MM tomosynthesis screening BI IMPRESSION: No mammographic evidence of malignancy. ASSESSMENT: BI-RADS BI-RADS 2 - Benign Findings RECOMMENDATION: Routine annual mammography screening. 1 year F/U This examination should not preclude the clinical evaluation of a suspicious palpable abnormality. This patient's information was entered into a reminder system with a target due date for their next mammogram.
== END 2023-04-27 12:33 | disposition home or self-care (01) ==
LOC: HO.MAMMO 12:32
PROVIDERS: PCP Internal Medicine; Visit Provider Internal Medicine
DX: Z12.31 Encounter for screening mammogram for malignant neoplasm of breast (principal)
CPT/HCPCS: 77063; 77067

== ENCOUNTER → 2023-04-27 12:45 | Outpatient (BNV) | payer MEDICARE, SELFPAY | PROVIDERS: PCP Internal Medicine; Visit Provider Radiology Diagnostic Radiology | DX: Z12.31 Encounter for screening mammogram for malignant neoplasm of breast (principal) | CPT/HCPCS: 77063; 77067 ==

== ENCOUNTER 2023-07-06 08:27 | Outpatient (REF) | payer MEDICARE, SELFPAY ==
[2023-07-06 12:04] LABS: Estimated Average Glucose 114 mg/dL; Hemoglobin A1c % 5.6 % (<6.0)
[2023-07-06 12:24] LABS: Alanine Aminotransferase 37 U/L (0-31); Albumin Level 4.3 g/dL (3.5-5.0); Alkaline Phosphatase 62 U/L (39-117); Anion Gap 12 (12-20); Aspartate Amino Transferase 26 U/L (5-31); Bilirubin Total 0.3 mg/dL (0.0-1.0); Blood Urea Nitrogen 9 mg/dL (9-16); Calcium 9.3 mg/dL (8.4-10.2); Carbon Dioxide 23 mmol/L (22-29); Chloride 108 mmol/L (96-108); Cholesterol 140 mg/dL (<200); Estimated Glomerular Filt Rate > 60; Glucose Fasting 107 mg/dL (60-99); HDL Cholesterol 44 mg/dL (>40); LDL Cholesterol Calculated 81 mg/dL (<100); Sodium 139 mmol/L (135-145); Triglycerides 77 mg/dL (<150)
== END 2023-07-06 08:28 | disposition home or self-care (01) ==
LOC: HO.HMGCLDS 08:27
PROVIDERS: PCP Internal Medicine; Visit Provider Internal Medicine
DX: Z00.01 Encounter for general adult medical examination with abnormal findings (principal); E78.9 Disorder of lipoprotein metabolism, unspecified; R73.01 Impaired fasting glucose
CPT/HCPCS: 36415; 80053; 80061; 83036

== ENCOUNTER 2023-07-06 08:43 | Outpatient (AMB) | payer MEDICARE, SELFPAY ==
[2023-07-06 08:49] VITALS: BP 110/68; PULSE 61; O2SAT 97; BMI 34.3
--- NOTE | 2023-07-06 08:49 | MHC.PC.OV ---
Vital Signs 07/06/23 08:49 Height 5 ft 2 in Weight 187 lb 6 oz BMI 34.3 BP 110/68 Blood Pressure Location Rt brachial Position Sitting Pulse 61 Pulse Source Pulse Oximeter Pulse Oximetry (%) 97 Oxygen Delivery Method Room Air Intake Visit Reasons: 8 month follow up Allergies codeine Allergy (Unknown, Verified 07/06/23 08:50) T3 messes with her stomach gabapentin Allergy (Unknown, Verified 07/06/23 08:50) hives Medication List - Last Reconciled 07/06/23 by See Lee MD atenolol 50 mg PO DAILY 90 days citalopram 40 mg PO DAILY hydrochlorothiazide 25 mg PO DAILY 90 days ibuprofen 600 mg PO BID PRN 15 days simvastatin 20 mg PO BEDTIME valacyclovir 1,000 mg (2 x 500 mg) PO BID zolpidem (Ambien) 10 mg PO BEDTIME PRN Tobacco use date assessed: 07/06/23 Fall risk assessment: No Falls in past year HPI 8 month follow up HPI Details Patient is a 63-year-old female came in today for regular follow-up appointment Patient has seen Dr. Leblanc Neurology for her chronic neck pain and discogenic headache Still waiting for MRI, she says that she has a follow-up appointment end of this month she will discuss with the Neurology Meanwhile patient is taking ibuprofen which is helping X-ray done by me showed lot of arthritic changes in cervical spine with moderate cervical spine stenosis. She continued to complain of numbness and tingling in her left hand as well. Hypertension: she is taking atenolol 50 mg and hydrochlorothiazide 25 mg daily. Blood pressure is stable Patient also takes simvastatin 20 mg for lipid control She just had labs done this morning report is not available yet BMI is elevated trying to lose weight Patient have a history of impaired fasting sugar however her hemoglobin A1c is stable Psychiatric management through Psychiatry. Follow-up in November [facility] Medical History Hyperosmia Snoring Cervicogenic headache Depression, major, severe recurrence Lipid disorder Surgical History History of colonoscopy History of total abdominal hysterectomy History of section History of appendectomy Hx of cholecystectomy History of breast biopsy Family History Mother Breast cancer COPD (chronic obstructive pulmonary disease) Maternal Grandmother No problems noted. Paternal Grandmother Breast cancer Maternal Aunt Breast cancer Other Mental health disorder Substance use disorder Social History Housing: House Alcohol intake: never Patient Tobacco Use Status: Never used Tobacco e-Cigarette/Vaping Use: Never Used service: No Current occupational status: retired Cognitive needs: No Hearing needs: No Vision needs: No Questionnaire Thrive Questionnaire Date Thrive assessed: 11/15/22 DANIELA-7 AMB Questionnaire DANIELA-7 Date DANIELA - 7 assessed: 11/15/22 Source: Developed by Drs. Josh Le, Cammie Brennan, Jr Ortiz and colleagues, with an educational nisha from [employer]. Review of Systems Const Denies chills and Denies fever(s) ENT Denies epistaxis and Denies nasal discharge Card Denies chest pain Resp Denies chest congestion, Denies cough and Denies hemoptysis GI Denies diarrhea and Denies nausea Skin/Breast Denies rash Neuro Reports no additional complaints Psych Reports no additional complaints Endo Reports no additional complaints Physical exam (Primary Care) Vital Signs: Last Vital Signs Pulse 61 07/06/23 08:49 BP 110/68 07/06/23 08:49 Pulse Ox 97 07/06/23 08:49 Oxygen Delivery Method Room Air 07/06/23 08:49 BMI result Body Mass Index 34.3 Tobacco/Smoking Status: Tobacco use Status Tobacco use date assessed 07/06/23 07/06/23 08:52 Patient Tobacco Use Status Never used Tobacco 07/06/23 08:52 e-Cigarette/Vaping Use Never Used 07/06/23 08:52 Thrive Assessment: Date of Thrive Assessment Date Thrive assessed 11/15/22 07/06/23 08:52 Const General: cooperative, comfortable and no acute distress Orientation/consciousness: patient oriented x3 HENMT Head: Yes normocephalic Eyes General: appearance normal, both eyes and all related structures Neck Neck: Yes supple Resp Effort & Inspection: normal respiratory effort, no cough and no stridor Cardio Rhythm: regular rhythm Heart sounds: S1 normal heart sound present and S2 normal heart sound present Skin General skin exam: turgor normal Neuro General: patient oriented x3, tone normal and moves all extremities Extrem Right lower extremity: no edema Left lower extremity: no edema Assessment and Plan Assessment & Plan (1) Hypertension: Code(s): I10 - Essential (primary) hypertension Qualifiers: Hypertension type: primary hypertension Qualified Code(s): I10 - Essential (primary) hypertension (2) Lipid disorder: Code(s): E78.9 - Disorder of lipoprotein metabolism, unspecified (3) Itch of eye, left: Code(s): H57.9 - Unspecified disorder of eye and adnexa (4) Impaired fasting blood sugar: Code(s): R73.01 - Impaired fasting glucose (5) Herpes simplex type 1 antibody positive: Code(s): B00.9 - Herpesviral infection, unspecified (6) Cervical stenosis of spinal canal: Code(s): M48.02 - Spinal stenosis, cervical region (7) Depression, major, severe recurrence: Code(s): F33.2 - Major depressive disorder, recurrent severe without psychotic features Qualifiers: Psychotic features: without psychotic features Qualified Code(s): F33.2 - Major depressive disorder, recurrent severe without psychotic features (8) Cervicogenic headache: Code(s): G44.86 - Cervicogenic headache Plan Patient is a 63-year-old female came in today for regular follow-up appointment Patient has seen Dr. Leblanc Neurology for her chronic neck pain and discogenic headache Still waiting for MRI, she says that she has a follow-up appointment end of this month she will discuss with the Neurology Meanwhile patient is taking ibuprofen which is helping X-ray done by me showed lot of arthritic changes in cervical spine with moderate cervical spine stenosis. She continued to complain of numbness and tingling in her left hand as well. Hypertension: she is taking atenolol 50 mg and hydrochlorothiazide 25 mg daily. Blood pressure is stable Patient also takes simvastatin 20 mg for lipid control She just had labs done this morning report is not available yet BMI is elevated trying to lose weight Patient have a history of impaired fasting sugar however her hemoglobin A1c is stable Major depression and sleeping difficulty management through Psychiatry. Follow-up in November Coding Level of Care Code Est Pt Level 4 (97765) Diagnoses Primary hypertension I10 Hypertension type: primary hypertension Lipid disorder E78.9 Itch of eye, left H57.9 Impaired fasting blood sugar R73.01 Herpes simplex type 1 antibody positive B00.9 Cervical stenosis of spinal canal M48.02 Severe episode of recurrent major depressive disorder, without psychotic features F33.2 Psychotic features: without psychotic features Cervicogenic headache G44.86
== END 2023-07-06 09:14 | disposition home or self-care (01) ==
PROVIDERS: PCP Internal Medicine; Visit Provider Internal Medicine
DX: I10 Essential (primary) hypertension (principal); F33.2 Major depressive disorder, recurrent severe without psychotic features; E78.9 Disorder of lipoprotein metabolism, unspecified; H57.9 Unspecified disorder of eye and adnexa; R73.01 Impaired fasting glucose; B00.9 Herpesviral infection, unspecified; M48.02 Spinal stenosis, cervical region; G44.86 Cervicogenic headache
CPT/HCPCS: 99214

== ENCOUNTER 2023-07-30 11:48 | Day surgery (SDC) | payer MEDICARE, SELFPAY ==
--- NOTE | 2023-07-27 10:38 | HO.ANESPROP2 ---
Documented by User: Kate Mckeon NP 07/27/23 10:39 HPI - Anesthesia Eval Consult details Narrative: 63yo F for Upper Endoscopy and Colonoscopy PMF Active Problems Active Problems: All Active Problems (Updated 03/06/23 @ 08:49 by See Lee MD) Itch of eye, left (Acute) Herpes simplex type 1 antibody positive (Acute) Hyperosmia (Acute) Snoring (Acute) Cervicogenic headache (Acute) Cervical stenosis of spinal canal (Acute) Chronic sore throat (Acute) Elevated blood sugar (Acute) Colonoscopy refused (Acute) Palpable thyroid (Acute) Dizziness (Acute) Uncontrolled hypertension (Acute) Rash (Acute) Elevated blood pressure reading (Acute) Hypertension (Acute) Hospital discharge follow-up (Acute) Impaired fasting blood sugar (Acute) Breast screening (Acute) Obesity due to excess calories (Acute) Encounter for general adult medical examination with abnormal findings (Acute) HSV-1 (herpes simplex virus 1) infection (Acute) Depression, major, severe recurrence (Acute) Lipid disorder (Acute) Past Medical History Medical History Hyperosmia Snoring Cervicogenic headache Depression, major, severe recurrence Lipid disorder Family History Family History Mother Breast cancer COPD (chronic obstructive pulmonary disease) Maternal Grandmother No problems noted. Paternal Grandmother Breast cancer Maternal Aunt Breast cancer Other Mental health disorder Substance use disorder Surgical History Surgical History History of colonoscopy History of total abdominal hysterectomy History of section History of appendectomy Hx of cholecystectomy History of breast biopsy Social History Social History Housing: House Alcohol intake: never Patient Tobacco Use Status: Never used Tobacco e-Cigarette/Vaping Use: Never Used Advance Directives: No Advance Directives Information Provided: Yes service: No Current occupational status: retired Cognitive needs: No Hearing needs: No Vision needs: No Meds Allergies Allergy/AdvReac Type Severity Reaction Status Date / Time codeine Allergy Unknown T3 messes Verified 07/06/23 08:50 with her stomach gabapentin Allergy Unknown hives Verified 07/06/23 08:50 Home Medications Medication Instructions Recorded Confirmed Last Taken Type citalopram 40 mg tablet 40 mg PO DAILY 03/31/20 07/06/23 Unknown History zolpidem 10 mg tablet (Ambien) 10 mg PO BEDTIME PRN 11/03/20 07/06/23 Unknown History Assessment and Plan Assessment Anesthesia Assessment: Chart Reviewed Documented by User: Luis Antonio Elmore MD 07/30/23 12:35 PMFSH Past Medical History Medical History Hyperosmia Snoring Cervicogenic headache Depression, major, severe recurrence Lipid disorder Family History Family History Mother Breast cancer COPD (chronic obstructive pulmonary disease) Maternal Grandmother No problems noted. Paternal Grandmother Breast cancer Maternal Aunt Breast cancer Other Mental health disorder Substance use disorder Family history of problems with anesthesia: No Surgical History Surgical History History of colonoscopy History of total abdominal hysterectomy History of section History of appendectomy Hx of cholecystectomy History of breast biopsy Social History Social History Housing: House Alcohol intake: never Patient Tobacco Use Status: Never used Tobacco e-Cigarette/Vaping Use: Never Used Advance Directives: No Advance Directives Information Provided: Yes service: No Current occupational status: retired Cognitive needs: No Hearing needs: No Vision needs: No Meds Allergies Allergy/AdvReac Type Severity Reaction Status Date / Time codeine Allergy Unknown T3 messes Verified 07/06/23 08:50 with her stomach gabapentin Allergy Unknown hives Verified 07/06/23 08:50 Home Medications Medication Instructions Recorded Confirmed Last Taken Type citalopram 40 mg tablet 40 mg PO DAILY 03/31/20 07/06/23 Unknown History zolpidem 10 mg tablet (Ambien) 10 mg PO BEDTIME PRN 11/03/20 07/06/23 Unknown History Exam Airway Mallampati Class: II TM Dist: <=3cm Neck ROM: Full Loose/Missing/Broken Teeth: No Heart: rrr Lungs: cta b/l Assessment and Plan Final Anesthetic Review Family History of Problems with Anesthesia: No NPO: Yes ASA Class: II Final Preanesthetic Review: No Changes in Pt Med Stat, Meds/Allgs Chart Reviewed, Consent Obtained/Reviewed and Anes Risks/Benef Reviewed Patient Risk: Intermediate Procedure Risk: Intermediate Anesthetic Plan Anesthetic Plan: MAC: Disposition: Standard PACU
[2023-07-30 12:16] VITALS: BMI 34.0
[2023-07-30] MEDS: Lactated Ringers 1,000 ML 100 ML IVCONT (12:22)
[2023-07-30 12:27] VITALS: BP 144/79; PULSE 95; RESP 18; TEMP 36.6; O2SAT 96
[2023-07-30 14:46] VITALS: BP 131/66; PULSE 80; RESP 17; TEMP 36.4; O2SAT 99
--- NOTE | 2023-07-30 14:48 | PM.OP ---
Brief Operative Note Date of Service: 07/30/23 Pre-op diagnosis: Globus, GERD, Screening, Diarrhea Post-op diagnosis: other (Hiatal hernia, Gastritis, Diverticulosis) Procedure: EGD with biopsies, Colonoscopy to the cecum and TI with biopsies Surgeon: Josh Minor MD Anesthesia: MAC Was an Portable Sawmill Operator used for this Procedure?: No Estimated blood loss (mL): 2.0 Pathology: other (A. Descending duodenum B. Gastric antrum C. EG Junction at 35cm D. Ascending colon E. Descending colon) Condition: stable Disposition: PACU
[2023-07-30 15:01] VITALS: BP 151/64; PULSE 63; RESP 18; O2SAT 99
[2023-07-30 15:16] VITALS: BP 155/62; PULSE 58; RESP 18; TEMP 36.8; O2SAT 98
--- NOTE | 2023-07-31 02:51 | OP_ITS ---
DATE OF SERVICE: 07/30/2023 SURGEON: Josh Minor MD INDICATIONS: The patient presents for evaluation of a globus sensation in the sternal notch area, colorectal cancer screening, and irregular bowel movements with diarrhea. Full consent has been obtained from her for both procedures, including risks of bleeding and perforation. PREOPERATIVE DIAGNOSIS: Globus, colorectal cancer screening, and diarrhea. POSTOPERATIVE DIAGNOSIS: Globus, colorectal cancer screening, diarrhea, mild gastritis, small hiatal hernia, diverticulosis, internal hemorrhoids. Rule out celiac disease and rule out microscopic colitis. PROCEDURE PERFORMED: Esophagogastroduodenoscopy with biopsies, and colonoscopy to the cecum and terminal ileum with biopsies. ESTIMATED BLOOD LOSS: COMPLICATIONS: ANESTHESIA: Medication used: Monitored anesthesia care. ASSISTANTS: SPECIMENS: DESCRIPTION OF PROCEDURE: The patient was placed in the left lateral decubitus position. The Olympus video gastroscope was passed in the posterior oropharynx and upper esophagus under direct vision. The scope was passed slowly into the distal esophagus. The gastroesophageal junction appeared at 35 cm. There was a very slight irregularity consistent with some minimal reflux, but no evidence of any esophagitis nor Bess's mucosa. The scope entered the stomach and there was a small hiatal hernia. The scope was advanced to the pylorus and the duodenum was cannulated to the descending portion. The duodenum including the bulb appeared normal without mass or ulceration. Biopsies were obtained from the second and third portions of duodenum. The scope was withdrawn back to the stomach. The gastric antrum had some mild areas of gastritis with edema and erythema, but no erosions or ulceration. There was good peristalsis. Biopsies were obtained. The scope was retroflexed visualizing the proximal stomach carefully, which appeared normal, without any sign of mass or ulceration. The scope was straightened and withdrawn back to the esophagus. Biopsies were obtained at the EG junction at 35 cm. Proximal to this, the esophageal mucosa appeared normal. The scope was withdrawn from the patient. She was turned around for the colonoscopy. The digital rectal exam revealed no abnormalities. The Olympus video pediatric colonoscope was entered into the rectum and advanced to the cecum with the assistance of abdominal wall pressure. Once in the cecum, I did identify a normal-appearing cecal pouch with appendiceal orifice and a normal-appearing ileocecal valve. The terminal ileum was cannulated and appeared normal. The scope was withdrawn back from the colon. The entire cecum and the ileocecal valve appeared normal. The scope was slowly withdrawn, assessing all mucosal surfaces carefully. Preparation was excellent. I did not visualize any sign of polyps, colitis, or angiodysplasia. Biopsies were obtained in the ascending and descending colon to rule out microscopic colitis. There was a mild amount of sigmoid diverticulosis. In the rectum, the scope was retroflexed, visualizing some small internal hemorrhoids, but no other pathology. The rectal mucosa appeared normal. The scope was straightened and withdrawn from the patient. She tolerated both procedures well and was returned to recovery area in stable condition. IMPRESSION: 1. Small hiatal hernia, minimal changes of reflux. 2. Mild gastritis. 3. Rule out celiac disease. 4. Rule out microscopic colitis. 5. Diverticulosis. 6. Internal hemorrhoids. PLAN: The results of the biopsies will be checked. She was advised not to use any aspirin nor NSAIDs for 1 week. She was advised to try a little cholestyramine powder and/or Imodium either daily or every other day to see if that would help with her loose bowel movements. I would recommend a repeat colonoscopy in 10 years for further screening. She was also advised to try an [id number] decongestant to see if that would help with her globus sensation in the event she is dealing with something such as some mucus and postnasal drip. She will be seen in the followup in the office as well. MD MARCELLA Coronado/TAHIR / [phone]
== END 2023-07-30 15:45 | disposition home or self-care (01) ==
PROVIDERS: PCP Internal Medicine; Visit Provider Internal Medicine
PROC: (CPT 45380; principal; 2023-07-30 14:20)
DX: Z12.11 Encounter for screening for malignant neoplasm of colon (principal); K57.30 Diverticulosis of large intestine without perforation or abscess without bleeding; K64.8 Other hemorrhoids; K58.2 Mixed irritable bowel syndrome; R13.12 Dysphagia, oropharyngeal phase; K29.50 Unspecified chronic gastritis without bleeding; R09.A2 Foreign body sensation, throat; K44.9 Diaphragmatic hernia without obstruction or gangrene; I10 Essential (primary) hypertension; E78.5 Hyperlipidemia, unspecified; Z79.899 Other long term (current) drug therapy; Z88.5 Allergy status to narcotic agent; Z88.9 Allergy status to unspecified drugs, medicaments and biological substances; Z90.49 Acquired absence of other specified parts of digestive tract
CPT/HCPCS: 45380; 43239; 88305; 88313; 88342; J2704

== ENCOUNTER 2023-08-09 07:15 | Outpatient (REF) | payer MEDICARE, SELFPAY ==
--- NOTE | ~2023-08-09 | MR_ITS ---
EXAMINATION: MR CERVICAL SPINE WITHOUT CONTRAST CLINICAL INFORMATION: Spinal stenosis, cervical region. The patient states headaches. Neck and back aches. COMPARISON: CT scan of the neck to 12/21/2022. TECHNIQUE: MRI of the cervical spine was obtained using routine sequences without contrast. FINDINGS: VERTEBRAL BODIES AND PARASPINAL SOFT TISSUES: There is anatomic alignment of the vertebral bodies. There is multilevel narrowing of intervertebral disc height which is most severe at C5-C6 and C6-C7. There are degenerative endplate contour changes with moderate edematous endplate signal at C6-C7. There are fatty endplate signal changes at C5-C6. Vertebral body heights are maintained, and no fractures are demonstrated. Overall, marrow signal is slightly heterogenous. The study redemonstrates ossification of the posterior longitudinal ligament at C3-C4 and C4-C5. The previously described lesion in the posterior aspect of the left parapharyngeal space is not well appreciated on this study. The regional soft tissues and visualized upper lung winters are unremarkable. CERVICOMEDULLARY JUNCTION AND VISUALIZED POSTERIOR FOSSA: The craniocervical and posterior fossa structures are normal. Accounting for artifact, spinal cord signal appears normal. SPINAL LEVELS: C2-C3: The facet joints appear normal. There is a small soft disc protrusion posteriorly and to the left of midline, without mass effect on the thecal sac and there is no central stenosis or foraminal narrowing. The neural foramina are patent bilaterally. C3-C4: The facet joints appear normal bilaterally. There is an eccentric posterior disc protrusion centrally and to the right of midline with some distortion the ventral thecal sac and mild effacement of CSF around the cord. There is mild to moderate central stenosis. There are uncovertebral osteophytes and there is mild bilateral foraminal narrowing. C4-C5: The facet joints appear normal bilaterally. There is ossification of the posterior longitudinal ligament, which is thickened and compresses the spinal cord, with effacement of CSF around the cord. There is moderate to severe central stenosis. There are uncovertebral osteophytes and there is moderate bilateral foraminal narrowing. C5-C6: The facet joints appear normal bilaterally. There is a broad-based posterior disc osteophyte complex which is slightly eccentrically more prominent toward the left. There is effacement of CSF around the cord, with flattening of the cord, and there is moderate central stenosis. There are uncovertebral osteophytes and there is moderate bilateral foraminal narrowing. C6-C7: The facet joints appear normal bilaterally. The broad-based posterior disc protrusion which flattens the ventral thecal sac with mild effacement of CSF around the cord. There is mild central stenosis. There are uncovertebral osteophytes and there is moderate bilateral foraminal narrowing. C7-T1: The facet joints appear normal bilaterally. Posterior disc contour is normal. There is no spinal cord compression or central stenosis. The neural foramina are patent bilaterally. MR/MR cervical spine wo con IMPRESSION: 1. The study redemonstrates ossification of the posterior longitudinal ligament at C4-C5, which is thickened and compresses the spinal cord, and there is moderate to severe central stenosis. There is moderate bilateral foraminal narrowing. 2. At C5-C6 there is a broad-based posterior disc osteophyte complex which is slightly more prominent toward the left. There is flattening of the cord and there is moderate central stenosis. There is moderate bilateral foraminal narrowing. 3. At C3-C4 there is an eccentric posterior disc protrusion, and there is ossification of the posterior longitudinal ligament. There is mild to moderate central stenosis and there is mild bilateral foraminal narrowing. 4. At C6-C7 there is a broad-based posterior disc protrusion with mild central stenosis. There is moderate bilateral foraminal narrowing.
== END 2023-08-09 07:16 | disposition home or self-care (01) ==
LOC: HO.MRI 07:15
PROVIDERS: PCP Internal Medicine; Visit Provider Nurse Practitioner Family
DX: M48.02 Spinal stenosis, cervical region (principal)
CPT/HCPCS: 72141

== ENCOUNTER 2023-08-24 10:01 | Outpatient (AMB) | payer MEDICARE, SELFPAY ==
--- NOTE | 2023-08-24 10:15 | HO.SPINEOV ---
Intake Intake Visit Reasons: spinal stenosis, cervical region Intake Note: Ms. Hernandez is here today c/o back pain and headaches. [employer] Operator Required: No Allergies codeine Allergy (Unknown, Verified 07/06/23 08:50) T3 messes with her stomach gabapentin Allergy (Unknown, Verified 07/06/23 08:50) hives Assessment & Plan Assessment & Plan (1) Cord compression: Code(s): G95.20 - Unspecified cord compression Plan Dear Dr Leblanc, Thank you for referring Mrs Hernandez to our office today. She is a very nice 63 year old female with h/o chronic neck pain going back more than 20 years. The symptoms started gradually but if gotten to the point now where it affects her quality of life on an everyday basis. The pain is located in the midline posterior cervical area and will radiate up to the back of her head. No radicular symptoms down the arms but she does get occasional tingling in her hands. She thought it was carpal tunnel at 1 point and tried braces but that did not help. She underwent trials of medications including ibuprofen, which originally worked but then stopped. She tried physical therapy, chiropractic and underwent injections at [facility]. None of these things helped, and in fact the injection caused her blood pressure to go so high she had a go to the emergency room and have it treated. She ultimately underwent an MRI at [place] showing severe degenerative disc disease with spinal cord compression and was referred to our office. She does not report any fine motor dexterity loss but she does report balance issues. She does have some weakness of her right leg which she is always attributed to pain that shoots down her leg from time to time. PMH: History of hypertension, high cholesterol, diverticulitis, hiatal hernia, she has an incidental mass on the left side of her throat in the retropharyngeal area which is being followed by an ENT doctor. She was told the they will just follow this clinically with imaging yearly that a biopsy was not necessary. History of depression, anxiety. No history of heart disease, strokes, bleeding disorders, blood clots, kidney disorders or lung issues. Social hx: She does not smoke, has never smoked. Does not smoke marijuana use any recreational drugs or alcohol Medications: Atenolol, hydrochlorothiazide, simvastatin, Ambien, Klonopin, citalopram, ibuprofen Allergies: Gabapentin gives her hives, codeine gives her GI upset and cortisone injections gave her severely elevated blood pressure Physical exam: Awake alert oriented no acute distress, her gait with tandem gait testing does reveal instability, her motor exam demonstrates mild weakness of both of her hands as well as a 4-5 right iliopsoas weakness. The rest of her motor examination is normal. Reflexes 2+ and symmetric, no Sanchez's, no clonus. Imaging review: She has a MRI of her cervical spine done at [facility] as well as a CT scan of the cervical spine. The most notable findings are at C4-5 and C5-6 where there is severe disc degeneration with endplate changes causing moderate to severe central canal stenosis. There is a large osteophyte arising off the backside of the C5 vertebral body which is also causing compression of the spinal cord. I do not see any myelomalacia. Impression: 63-year-old female presents for evaluation of chronic midline cervical neck pain which radiates up to the back of her head, occasional tingling of her hands, with examination findings showing some instability with tandem gait testing as well as weakness of her hands in her right iliopsoas. She has no hyperreflexia. The main issue in question is the spinal cord compression that we see at C4-5 and behind the body of C5 going into the C5-6 level. I think she is having early symptoms of it but is not overtly myelopathic. With respect to her neck pain and her posterior headaches, the role that the degenerative discs play in her pain syndrome could certainly be part of the cause, but there is no guarantee that it is the source of all of her pain. I will review her imaging with Dr. Flores, but if the patient is at a point where the neck pain is getting to be such a factor in her quality of life, I think he would agree that she would be a good surgical candidate especially in light of the encroaching cervical stenosis and physical exam findings. Because of the osteophyte behind the body of C5 I think he would lean toward a corpectomy with an anterior plate from C4-C6 but I will have to confirm the final plan with him. I did briefly review risks benefits of surgery with the patient, quoting 60-70% improvement in her neck pain as well as all the usual recovery issues with anterior cervical fusion. Thank you for allowing us to care for your patient. The total time spent with this visit with this patient was 45 minutes reviewing history, physical exam, cervical spine imaging review, and implementation of treatment plan or further diagnostic testing Miguel Flores MD,PhD [facility] Coding Level of Care Code New Pt Level 4 (96624) Diagnoses Cord compression G95.20
== END 2023-08-24 10:52 | disposition home or self-care (01) ==
PROVIDERS: PCP Internal Medicine; Referring Provider Psychiatry & Neurology Neurology; Visit Provider Physician Assistant
DX: G95.20 Unspecified cord compression (principal)
CPT/HCPCS: 99204

== ENCOUNTER → 2023-08-24 10:01 | Outpatient (BNVA) | payer MEDICARE, SELFPAY | PROVIDERS: PCP Internal Medicine; Referring Provider Psychiatry & Neurology Neurology; Visit Provider Physician Assistant | DX: M48.02 Spinal stenosis, cervical region (principal); G95.20 Unspecified cord compression | CPT/HCPCS: 99202 ==

== ENCOUNTER → 2023-10-25 13:03 | Outpatient (BNV) | payer MEDICARE, SELFPAY | PROVIDERS: PCP Internal Medicine; Visit Provider Internal Medicine Cardiovascular Disease | DX: Z01.810 Encounter for preprocedural cardiovascular examination (principal) | CPT/HCPCS: 93010 ==

== ENCOUNTER → 2023-11-07 07:00 | Outpatient (BNV) | payer MEDICARE, SELFPAY | PROVIDERS: PCP Internal Medicine; Visit Provider Neurological Surgery | DX: Z48.89 Encounter for other specified surgical aftercare (principal) | CPT/HCPCS: 20936; 22845; 22854; 63081; 99024; 99499 ==

== ENCOUNTER 2023-11-07 11:52 | Inpatient (IN) | payer MEDICARE, SELFPAY ==
--- NOTE | 2023-10-25 | ECG_ITS ---
Test Reason : PREOP Blood Pressure : / mmHG Vent. Rate : 063 BPM Atrial Rate : 063 BPM P-R Int : 142 ms QRS Dur : 084 ms QT Int : 448 ms P-R-T Axes : 057 -04 031 degrees QTc Int : 458 ms Normal sinus rhythm Normal ECG When compared with ECG of 14-DEC-2020 17:32, No significant change was found Referred By: Kate Mckeon Electronically Signed By:Aamir Springer
[2023-10-25 12:07] VITALS: BP 150/68; PULSE 61; RESP 18; O2SAT 97; BMI 35.1
--- NOTE | 2023-10-25 12:20 | HO.ANESPROP2 ---
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 Fiberoptic scope with ENT 2022 shows some erythema ? r/t gastric reflux, otherwise WNL. Per pt, never treated for GERD, still with occasional feeling of something in throat PMFSH Active Problems Active Problems: All Active Problems Itch of eye, left (Acute) Herpes simplex type 1 antibody positive (Acute) Cervical stenosis of spinal canal (Acute) Chronic sore throat (Acute) Elevated blood sugar (Acute) Colonoscopy refused (Acute) Palpable thyroid (Acute) Dizziness (Acute) Uncontrolled hypertension (Acute) Rash (Acute) Elevated blood pressure reading (Acute) Hypertension (Acute) Hospital discharge follow-up (Acute) Impaired fasting blood sugar (Acute) Breast screening (Acute) Obesity due to excess calories (Acute) Encounter for general adult medical examination with abnormal findings (Acute) HSV-1 (herpes simplex virus 1) infection (Acute) Cord compression (Acute) Hyperosmia (Acute) Snoring (Acute) Cervicogenic headache (Acute) Depression, major, severe recurrence (Acute) Lipid disorder (Acute) Past Medical History Medical History Arthritis Hiatal hernia HTN (hypertension) Oropharyngeal mass Cord compression Hyperosmia Snoring Cervicogenic headache Depression, major, severe recurrence Lipid disorder Family History Family History Mother Breast cancer COPD (chronic obstructive pulmonary disease) Maternal Grandmother No problems noted. Paternal Grandmother Breast cancer Maternal Aunt Breast cancer Other Mental health disorder Substance use disorder Family history of problems with anesthesia: No Surgical History Surgical History History of esophagogastroduodenoscopy (EGD) Hx of dilation and curettage History of laryngoscopy History of colonoscopy History of total abdominal hysterectomy History of section History of appendectomy Hx of cholecystectomy History of breast biopsy History of Problems with Anesthesia: No Social History Social History Housing: House Are you a primary healthcare economics manager to a significant other at home: No Do you presently have visiting nurse or other home services: No Alcohol intake: never Patient Tobacco Use Status: Never used Tobacco e-Cigarette/Vaping Use: Never Used Use of substances other than those prescribed or required for medical reasons: No Have you been hit, kicked, punched, or otherwise hurt by someone within the past year? If so, by whom?: No Are you DNR?: No Advance Directives: No Advance Directives Information Provided: Yes Advance Directives on File: No Recently lost weight without trying: No Eating poorly because of decreased appetite: No Nutrition Risks: No Nutritional Risk Poor oral hygiene: No (upper right side implant) service: No Current occupational status: retired Cognitive needs: No Hearing needs: No Vision needs: No Meds Allergies Allergy/AdvReac Type Severity Reaction Status Date / Time codeine Allergy Intermediate Vomiting Verified 11/07/23 07:48 gabapentin Allergy Intermediate hives Verified 11/07/23 07:48 Home Medications ?Medication ?Instructions ?Recorded ?Confirmed ?Last Taken ?Type citalopram 40 mg tablet 40 mg PO BEDTIME 03/31/20 10/25/23 11/06/23 History zolpidem 10 mg tablet (Ambien) 10 mg PO BEDTIME Insomnia 11/03/20 11/07/23 11/06/23 History atenolol 50 mg tablet 50 mg PO QAM 10/25/23 11/07/23 11/07/23 History clonazepam 0.5 mg tablet 0.5 mg PO BID PRN Anxiety 10/25/23 11/07/23 11/07/23 History hydrochlorothiazide 25 mg tablet 25 mg PO QAM 10/25/23 10/25/23 11/06/23 History valacyclovir 500 mg tablet 1,000 mg PO BID PRN Outbreak 10/25/23 10/25/23 Unknown History Exam Height,Weight and Vital Signs: Height 5 ft 2 in Weight 87.09 kg Last Vital Signs Pulse 61 10/25/23 12:07 Resp 18 10/25/23 12:07 BP 150/68 H 10/25/23 12:07 Pulse Ox 97 10/25/23 12:07 O2 Del Method Room Air 10/25/23 12:07 Pertinent Lab Results Pertinent Lab Results: Laboratory Tests 07/06/23 08:34 Sodium 139 Potassium 4.0 Chloride 108 Carbon Dioxide 23 BUN 9 Creatinine 0.77 Lab Results 10/25/23 Range/Units 13:02 WBC 6.7 (4.8-10.8) X10*3/uL RBC 4.07 L (4.20-5.50) X10*6/uL Hgb 12.4 (12.0-16.0) g/dl Hct 38.4 (37.0-47.0) % MCV 94.3 (80.0-98.0) fL MCH 30.5 (27.0-33.0) pg MCHC 32.3 (31.0-35.0) g/dl RDW 13.0 (11.0-16.0) % Plt Count 296 (160-400) X10*3/uL MPV 9.2 L (9.4-12.3) fL Absolute Nucleated RBC 0.000 (0.0-0.012) X10*3/uL Nucleated RBC % (auto) 0.0 (0.0-0.2) /100WBC Narrative Narrative: EKG 10/2023 Vent. Rate : 063 BPM Atrial Rate : 063 BPM P-R Int : 142 ms QRS Dur : 084 ms QT Int : 448 ms P-R-T Axes : 057 -04 031 degrees QTc Int : 458 ms Normal sinus rhythm Normal ECG When compared with ECG of 14-DEC-2020 17:32, No significant change was found Airway Mallampati Class: III TM Dist: >3cm Neck ROM: Limited Loose/Missing/Broken Teeth: No (1 x implant R upper) Heart: RRR Lungs: CTAB Assessment and Plan Final Anesthetic Review Family History of Problems with Anesthesia: No History of Problems with Anesthesia: No Documented by User: Sulema Hazel MD 11/07/23 10:00 HPI - Anesthesia Eval Consult details Narrative: 63yo F for C5 Corpectomy Cervical Anterior,C4-6 Plating s/p EGD and [facility] 07/2023 with TIVA No recent illness No CP/SOB with horseback riding, walking, kayak 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 Fiberoptic scope with ENT 2022 shows some erythema ? r/t gastric reflux, otherwise WNL. Per pt, never treated for GERD, still with occasional feeling of something in throat 11/07/23: Radiological studies reports reviewed. No reports of any masses obstructing airway PMFSH Past Medical History Medical History Arthritis Hiatal hernia HTN (hypertension) Oropharyngeal mass Cord compression Hyperosmia Snoring Cervicogenic headache Depression, major, severe recurrence Lipid disorder Family History Family History Mother Breast cancer COPD (chronic obstructive pulmonary disease) Maternal Grandmother No problems noted. Paternal Grandmother Breast cancer Maternal Aunt Breast cancer Other Mental health disorder Substance use disorder Family history of problems with anesthesia: No Surgical History Surgical History History of esophagogastroduodenoscopy (EGD) Hx of dilation and curettage History of laryngoscopy History of colonoscopy History of total abdominal hysterectomy History of section History of appendectomy Hx of cholecystectomy History of breast biopsy History of Problems with Anesthesia: No Social History Social History Housing: House Are you a primary healthcare economics manager to a significant other at home: No Do you presently have visiting nurse or other home services: No Alcohol intake: never Patient Tobacco Use Status: Never used Tobacco e-Cigarette/Vaping Use: Never Used Use of substances other than those prescribed or required for medical reasons: No Have you been hit, kicked, punched, or otherwise hurt by someone within the past year? If so, by whom?: No Are you DNR?: No Advance Directives: No Advance Directives Information Provided: Yes Advance Directives on File: No Recently lost weight without trying: No Eating poorly because of decreased appetite: No Nutrition Risks: No Nutritional Risk Poor oral hygiene: No (upper right side implant) service: No Current occupational status: retired Cognitive needs: No Hearing needs: No Vision needs: No Meds Allergies Allergy/AdvReac Type Severity Reaction Status Date / Time codeine Allergy Intermediate Vomiting Verified 11/07/23 07:48 gabapentin Allergy Intermediate hives Verified 11/07/23 07:48 Home Medications ?Medication ?Instructions ?Recorded ?Confirmed ?Last Taken ?Type citalopram 40 mg tablet 40 mg PO BEDTIME 03/31/20 10/25/23 11/06/23 History zolpidem 10 mg tablet (Ambien) 10 mg PO BEDTIME Insomnia 11/03/20 11/07/23 11/06/23 History atenolol 50 mg tablet 50 mg PO QAM 10/25/23 11/07/23 11/07/23 History clonazepam 0.5 mg tablet 0.5 mg PO BID PRN Anxiety 10/25/23 11/07/23 11/07/23 History hydrochlorothiazide 25 mg tablet 25 mg PO QAM 10/25/23 10/25/23 11/06/23 History valacyclovir 500 mg tablet 1,000 mg PO BID PRN Outbreak 10/25/23 10/25/23 Unknown History Exam Height,Weight and Vital Signs: Height 5 ft 2 in Weight 87.09 kg Last Vital Signs Pulse 61 10/25/23 12:07 Resp 18 10/25/23 12:07 BP 150/68 H 10/25/23 12:07 Pulse Ox 97 10/25/23 12:07 O2 Del Method Room Air 10/25/23 12:07 Vital Signs Temp Pulse Resp BP Pulse Ox O2 Del Method 11/07/23 08:03 97.8 F 60 16 137/61 98 Room Air Pertinent Lab Results Pertinent Lab Results: Laboratory Tests 07/06/23 08:34 Sodium 139 Potassium 4.0 Chloride 108 Carbon Dioxide 23 BUN 9 Creatinine 0.77 Lab Results 10/25/23 Range/Units 13:02 WBC 6.7 (4.8-10.8) X10*3/uL RBC 4.07 L (4.20-5.50) X10*6/uL Hgb 12.4 (12.0-16.0) g/dl Hct 38.4 (37.0-47.0) % MCV 94.3 (80.0-98.0) fL MCH 30.5 (27.0-33.0) pg MCHC 32.3 (31.0-35.0) g/dl RDW 13.0 (11.0-16.0) % Plt Count 296 (160-400) X10*3/uL MPV 9.2 L (9.4-12.3) fL Absolute Nucleated RBC 0.000 (0.0-0.012) X10*3/uL Nucleated RBC % (auto) 0.0 (0.0-0.2) /100WBC Airway Mallampati Class: III TM Dist: >3cm Neck ROM: Limited Assessment and Plan Assessment Anesthesia Assessment: Anesthesia Plan Discussed and Chart Reviewed Final Anesthetic Review Family History of Problems with Anesthesia: No History of Problems with Anesthesia: No NPO: Yes ASA Class: III Final Preanesthetic Review: No Changes in Pt Med Stat, Meds/Allgs Chart Reviewed, Consent Obtained/Reviewed and Anes Risks/Benef Reviewed Patient Risk: Intermediate Procedure Risk: Intermediate Assessment/Block/Sedation in SS: Assess/Block/Sedation- Anesthetic Plan Anesthetic Plan: GA Disposition: Standard PACU and Inp. Admit - Standard Bed
[2023-10-25 13:31] LABS: Hematocrit 38.4 % (37.0-47.0); Hemoglobin 12.4 g/dl (12.0-16.0); Mean Corpuscular HGB Conc 32.3 g/dl (31.0-35.0); Mean Corpuscular Hemoglobin 30.5 pg (27.0-33.0); Mean Corpuscular Volume 94.3 fL (80.0-98.0); Mean Platelet Volume 9.2 fL (9.4-12.3); Platelet Count 296 X10*3/uL (160-400); Red Blood Count 4.07 X10*6/uL (4.20-5.50); White Blood Count 6.7 X10*3/uL (4.8-10.8)
[2023-11-07] VITALS (23 sets, daily range): BP systolic 120–168; BP diastolic 42–104; PULSE 60–89; RESP 11–20; TEMP 36–36.6; O2SAT 93–98; BMI 35.5
--- NOTE | ~2023-11-07 | FL_ITS ---
EXAMINATION: XR FLUOROSCOPY WITH IMAGES CLINICAL INFORMATION: C5 corpectomy. COMPARISON: CT neck 07/11/2022. TECHNIQUE: Fluoroscopy Supervised By: Dr. Flores. Fluoroscopy Time: 14.6. Cumulative Dose: 3.723 mGy. DAP: 1.0039 Gycm2. Images: 4. FINDINGS: Intraoperative fluoroscopy and spot films were performed during a procedure in the OR. Imaging shows corpectomy at C5 with ACDF hardware. Please see Dr. Flores' report for complete details. FL/FL guidance in OR IMPRESSION: Intraoperative fluoroscopy and spot films were obtained. Please see Dr. Flores' report for complete details.
[2023-11-07] MEDS: methocarbamoL 750 MG TABLET PO ×3 (07:57→21:31)
[2023-11-07] MEDS: Lactated Ringers 1,000 ML 100 ML IVCONT (07:57)
--- NOTE | 2023-11-07 08:56 | MHC.SHP ---
Pre-Procedural Eval Section A - 24 Hr Update-Section A only Date of Service: 11/07/23 Section B - Complete if H&P > 30 days Chief Complaint: Unspecified cord compression Details of Present Illness: neck apin. Bilateral hand weakness Allergies: Allergies Allergy/AdvReac Type Severity Reaction Status Date / Time codeine Allergy Intermediate Vomiting Verified 11/07/23 07:48 gabapentin Allergy Intermediate hives Verified 11/07/23 07:48 Review of Systems Sugical H&P ROS: Negative: Constitution, Cardiovascular, Respiratory, Psychiatric, Hem-Onc, Allergic/Immunologic, Gastrointestinal, Genitourinary, Musculoskeletal, Integumentary, Endocrine and Eyes/Ears/Nose/Throat and Yes, Specify: Neurological (see above) Exam Surgical H&P Exam: Normal: Abdomen and Normal: Skin, Not Evaluated: HEENT, Not Evaluated: Heart, Not Evaluated: Lungs and Not Evaluated: Extremities and Significant Findings: Neurological (Awake alert oriented no acute distress, her gait with tandem gait testing does reveal instability, her motor exam demonstrates mild weakness of both of her hands as well as a 4-5 right iliopsoas weakness. The rest of her motor examination is normal. Reflexes 2+ and symmetric, no Sanchez's, no clon) Plan Diagnosis/Plan: Unchanged I have reviewed the history and physical and performed a pertinent physical examination on my patient. No changes have occurred unless specified. C5 corpectomy and anterior plate C4-6 Time Spent With Patient Time: Total time managing care of this patient today __10__ minutes.
--- NOTE | 2023-11-07 11:40 | P.OP_ITS ---
Operative Note Operative Note Date of Service: 11/07/23 Narrative: Preoperative Diagnosis: Cervical myelopathy Procedure: C5 corpectomy; implantation expandable cage filled with autograft; anterior instrumentation C4-C6; microscope Informed Consent was obtained for this operation. I have explained the nature, purpose and benefits of the operation. I have discussed the risks and benefit of the operation including possible complications or adverse events with patient/family. Alternative(s) were discussed with the patient with their relative benefits and risks as well as the consequences of not accepting the operation were included in obtaining consent. Surgeon: DEEPALI POSEY MD, PHD Procedure Assisted By: ARISTEO Terry Description of Procedure: This 63-year-old female is suffering from chronic neck pain and cervical myelopathy. A CT and MRI of the cervical spine show severe degenerative disc disease C4-5 and C5-C6 with spinal cord compression and a large central osteophyte compressing the spinal cord originating from the C5 vertebral body. She was offered a C5 corpectomy to decompress the spinal cord. The procedure complications were explained. The patient was consented. The patient was brought to the operating room and endotracheally intubated. The patient was put in supine position with slight extension of the neck. Prep and drape was done followed by timeout. A mid cervical incision was made followed by opening of the platysma. The prevertebral fascia was reached following the natural planes while the physician curriculum assistant provided manual retraction. The prevertebral fascia was opened to expose the disc space. A spinal needle was placed in the disk space to confirm the correct level with xray. The longus colli muscles were released bilaterally and a self retaining retractor was inserted. An initial diskectomy was done of C5-6 and C4-C5 towards the posterior annulus. A partial corpectomy was done with the Le[place]ell. Then with the high-speed drill the C5 corpectomy further extended posteriorly until a thin layer of posterior bone was left. The posterior longitudinal ligament was opened at C5-C6 and dura was identified. Dear longitudinal ligament was resected and a bilateral foraminotomy was done. Then with a 2. Kerrison the corpectomy was completed towards the C4-C5 disc space. The median osteophyte was carefully dissected from the dura and resected with a curve correct and 2. Kerrison. The C4-5 diskectomy was completed incl uding a bilateral foraminotomy. The endplates were prepared after which Angel expandable cage filled with autograft was inserted and expanded to approximately 20 mm under fluoroscopic guidance. A 26 mm anterior plate was used to cover the interbody cage. The plate was locked down with 4 x 14 mm screws. Final x-rays in AP and lateral projection showed good position of the interbody device and anterior instrumentation. The physician curriculum assistant took over. Hemostasis was done. He closed the incision in 2 layers with a 3-0 Vicryl. Steri-Strips used to approximate incision. An OpSite with Tegaderm was used to cover the incision. All sponge and needle counts were correct. Patient was extubated and transported in stable is to recovery room. Anesthesia: General Estimated Blood Loss (ml): 100 mL Duration of Surgery: 1 hour and 45 minutes Postoperative Plan: Discharge home Complications: None
--- NOTE | 2023-11-07 12:14 | PHA.MEDREC ---
Pharmacy Consult ? Medication Reconciliation Pharmacy has completed the medication reconciliation. reviewed med rec done by nursing.
[2023-11-07] MEDS: HYDROmorphone HCl 0.5 MG/0.5 ML SYRINGE 0.25 MG IVPUSH ×4 (12:36→12:57)
[2023-11-07] MEDS: fentaNYL citrate/PF 100 MCG/2 ML VIAL 25 MCG IVPUSH ×4 (13:09→13:28)
[2023-11-07] MEDS: 0.9 % Sodium Chloride 1,000 ML 75 ML IVCONT (14:10)
[2023-11-07] MEDS: HYDROcodone Bit/Acetam 5/325 TABLET 2 TAB PO (14:32)
[2023-11-07] MEDS: HYDROmorphone HCl 1 MG/ML SYRINGE IVPUSH ×3 (15:18→23:27)
[2023-11-07] MEDS: clonazePAM 0.5 MG TABLET PO (15:26)
[2023-11-07] MEDS: ceFAZolin Sodium 3 GM in 0.9 % Sodium Chloride 100 ML IV (16:40)
[2023-11-07] MEDS: ondansetron HCL 4 MG/2 ML VIAL IVPUSH (18:45)
[2023-11-07] MEDS: HYDROcodone Bit/Acetam 5/325 TABLET 1 TAB PO (20:22)
[2023-11-07] MEDS: Atorvastatin Calcium 10 MG TABLET PO (20:22)
[2023-11-07] MEDS: Docusate Sodium 100 MG CAPSULE PO (20:22)
[2023-11-07] MEDS: Escitalopram Oxalate 20 MG TABLET PO (20:22)
[2023-11-07] MEDS: Zolpidem Tartrate 5 MG TABLET PO (21:31)
[2023-11-08 03:24] VITALS: BP 163/69; PULSE 77; RESP 16; TEMP 36.3; O2SAT 96
[2023-11-08] MEDS: HYDROmorphone HCl 1 MG/ML SYRINGE IVPUSH ×2 (03:27→08:07)
[2023-11-08] MEDS: clonazePAM 0.5 MG TABLET PO (03:28)
[2023-11-08] MEDS: HYDROcodone Bit/Acetam 5/325 TABLET 2 TAB PO (07:01)
[2023-11-08 07:34] VITALS: BP 128/60; PULSE 75; RESP 16; TEMP 36.9; O2SAT 98
[2023-11-08] MEDS: atenoloL 50 MG TABLET PO (07:53)
[2023-11-08] MEDS: hydroCHLOROthiazide 25 MG TABLET PO (07:53)
[2023-11-08 07:54] VITALS: BP 128/60; PULSE 75; O2SAT 98
[2023-11-08] MEDS: Docusate Sodium 100 MG CAPSULE PO (07:54)
--- NOTE | 2023-11-08 09:08 | P.DS_ITS ---
DS: Providers Provider Date of Service: 11/08/23 Date of admission: 11/07/23 11:52 Primary care physician: See Lee MD DS: Summary Time Attestation Discharge Coordination Time (in mins): 30 Quality: Safe Use of Opioids Does Pt have an Active Cancer Diagnosis on the Problem List?: No Quality: Stroke Does the patient have a stroke diagnosis?: No Physical Exam Vital Signs: Vital Signs: Last Vital Signs Temp 98.5 F 11/08/23 07:34 Pulse 75 11/08/23 07:54 Resp 16 11/08/23 07:34 BP 128/60 11/08/23 07:54 Pulse Ox 98 11/08/23 07:54 O2 Del Method Room Air 11/08/23 07:34 O2 Flow Rate 88 11/07/23 15:34 BMI result Body Mass Index 35.5 Discharge Plan Discharge Anticipated Discharge Date/Time: 11/08/23 09:08 Patient Disposition: Home, Self-Care Discharge Diagnosis: s/p C5 corpectomy Referrals: See Lee MD [Primary Care Provider] - 1 Week Discharge Medications: New oxycodone 5 mg tablet 5 mg PO Q6H PRN (Reason: severe pain (scale score 7-10)) Qty: 30 0RF Rx Instructions: Partial Fill upon patient request. Continued simvastatin 20 mg tablet 20 mg PO BEDTIME Qty: 90 1RF clonazepam 0.5 mg Tablet 0.5 mg PO BID PRN (Reason: Anxiety) valacyclovir 500 mg tablet 1,000 mg PO BID PRN (Reason: Cold Sores) Rx Instructions: Take 2 tablets b.i.d. for one day at the onset of cold sore hydrochlorothiazide 25 mg tablet 25 mg PO QAM atenolol 50 mg tablet 50 mg PO QAM citalopram 40 mg tablet 40 mg PO BEDTIME zolpidem [Ambien] 10 mg tablet 10 mg PO BEDTIME Held ibuprofen 600 mg tablet 600 mg PO BID PRN (Reason: pain) 15 Days Qty: 30 3RF Hold Instructions: Resume on 11/15/23. Discharge Orders: Discharge Order (Routine); Ordered 11/08/23 Ordered By: Jeramie Ordaz Diet: Advance to usual diet Activity on Discharge: As tolerated Stand Alone Forms: Patient Portal Discharge page Print Language: [place] Care Plan Goals: Return to normal activity as tolerated Health Concerns: None Plan of Treatment: Follow-up in clinic in 2-3 weeks Assessment: POD: 1 Procedure: C5 corpectomy anterior plating c4-6 Cally was seen this morning on 3-S up walking around in her regular clothes. She reports being ready to go home. She states she still has some posterior neck pain but is otherwise feeling well. She has been up out of bed ambulating to the bathroom in his tolerating her diet. She asked several questions regarding postoperative healing course including sleeping positions, lifting restrictions, and medications. I answered all of her questions to the best of my ability. Afebrile, vital signs stable. Full strength 5/5 UE. (-) Sanchez's bilaterally. Anterior dressing has some staining without signs of hematoma. No active sanguineous drainage. Area is dry. Plan: Cally is POD:1 S/P C5 corpectomy. She is OOB, voiding well, tolerating diet, and reports wanting to return home. I sent in an RX of Oxycodone 5mg tablets for her to the pharmacy here at [facility]. She reports she is in fact able to tolerate this medication without issue. Patient meets criteria to be medically discharged home. This was discussed with the attending neurosurgeon Dr. Flores. Jeramie Flores MD,PhD [facility]
--- NOTE | 2023-11-08 09:14 | HO.POSTANES ---
Post Anesthesia Evaluation Post Anesthesia Evaluation Date of Service: 11/08/23 Vital Signs: Vital Signs Temp Pulse Resp BP Pulse Ox O2 Del Method 11/08/23 07:54 75 128/60 98 11/08/23 07:34 98.5 F 75 16 128/60 98 Room Air 11/08/23 03:24 97.3 F 77 16 163/69 H 96 Room Air 11/07/23 23:27 16 11/07/23 23:25 79 16 128/61 Anesthesia: General Endotracheal-GETA Mental Status: Awake Pain Control: Satisfactory Nausea/Vomiting: None Hydration: Adequate Anesthesia-Related Issues: No Anes. Related Issues
--- NOTE | 2023-11-08 09:15 | HO.NEUROPN_ITS ---
Neurosurgery Operative Note Date of Service: 11/08/23 Narrative: POD: 1 Procedure: C5 corpectomy anterior plating c4-6 Cally was seen this morning on 3-S up walking around in her regular clothes. She reports being ready to go home. She states she still has some posterior neck pain but is otherwise feeling well. She has been up out of bed ambulating to the bathroom in his tolerating her diet. She asked several questions regarding postoperative healing course including sleeping positions, lifting restrictions, and medications. I answered all of her questions to the best of my ability. Afebrile, vital signs stable. Full strength 5/5 UE. (-) Sanchez's bilaterally. Anterior dressing has some staining without signs of hematoma. No active sanguineous drainage. Area is dry. Plan: Cally is POD:1 S/P C5 corpectomy. She is OOB, voiding well, tolerating diet, and reports wanting to return home. I sent in an RX of Oxycodone 5mg tablets for her to the pharmacy here at [facility]. She reports she is in fact able to tolerate this medication without issue. Patient meets criteria to be medically discharged home. This was discussed with the attending neurosurgeon Dr. Flores. Jeramie Flores MD,PhD [facility]
--- NOTE | 2023-11-08 09:58 | MHC.CM.PN ---
PT REPORTS SHE LIVES ALONE AND IS INDEPENDENT WITH CARE SHE HAS NO DME AND NO SERVICES PT REPORTS SHE HAS A HCP COMPLETED WITH HER NEON SIGN SERVICER PCP: DAVID LEYVA IMM DELIVERED DCP: HOME TODAY WITH NO SERVICES VIA PRIVATE TRANSPORT
== END 2023-11-08 09:56 | disposition home or self-care (01) | DRG 472 ==
LOC: HO.SSSA 12:01 → HO.S3 12:50
PROVIDERS: Neurological Surgery; Nurse Practitioner; Admitting Provider Physician Assistant; PCP Internal Medicine; Visit Provider Physician Assistant
PROC: 0RG20A0 Fusion of 2 or more Cervical Vertebral Joints with Interbody Fusion Device, Anterior Approach, Anterior Column, Open Approach (ICD-10-PCS; principal; 2023-11-07 09:20)
DX: M50.01 Cervical disc disorder with myelopathy, high cervical region (principal); F33.9 Major depressive disorder, recurrent, unspecified; Z79.899 Other long term (current) drug therapy
CPT/HCPCS: 36415; 85027; 93005; 97162; C1713; C1889; J0131; J0690; J1100; J1170; J2250; J2405; J2704; J3010

== ENCOUNTER 2023-11-20 10:10 | Outpatient (AMB) | payer MEDICARE, SELFPAY ==
--- NOTE | 2023-11-20 10:11 | A.OFFPC_ITS ---
Vital Signs 11/20/23 10:18 Height 5 ft 2 in Weight 183 lb BMI 33.5 BP 126/66 Blood Pressure Location Rt brachial Position Sitting Pulse 52 Pulse Source Pulse Oximeter Pulse Oximetry (%) 98 Oxygen Delivery Method Room Air Intake Visit Reasons: Annual PE Allergies codeine Allergy (Intermediate, Verified 11/20/23 10:11) Vomiting gabapentin Allergy (Intermediate, Verified 11/20/23 10:11) hives Medication List - Last Reconciled 11/20/23 by See Lee MD atenolol 50 mg PO QAM citalopram 40 mg PO BEDTIME clonazepam 0.5 mg PO BID PRN hydrochlorothiazide 25 mg PO QAM ibuprofen 600 mg PO BID PRN 15 days methocarbamol 500 mg PO TID oxycodone 5 mg PO Q6H PRN simvastatin 20 mg PO BEDTIME tizanidine 4 mg PO Q8H PRN valacyclovir 1,000 mg PO BID PRN zolpidem (Ambien) 10 mg PO BEDTIME Tobacco use date assessed: 11/20/23 Fall risk assessment: No Falls in past year Last assessed Fall Risk: 11/20/23 Dental Screening Dental Screen Date: 11/20/23 Did you have a dental visit in the last 12 months?: Yes Did you have a dental problem in the last 6 months where you did not have access to dental care?: No Was dental information given to patient?: Patient has dentist HPI Annual PE HPI Details Patient is 63-year-old female came in today for physical examination Patient had MRI of cervical spine which showed a lot of abnormalities She recently earlier this month had surgery done on her cervical spine, her headaches have improved she is still recovering from the surgery and have sore neck Blood pressure is stable patient is taking her medications Patient is prediabetic we will repeat labs again at her next visit in 4 months She is also seeing psych med prescriber and is taking zolpidem and subtle a prime through them Declined to do colonoscopy History of hysterectomy Mammogram due in April Follow-up 4 months [facility] Medical History Arthritis Hiatal hernia HTN (hypertension) Oropharyngeal mass Cord compression Hyperosmia Snoring Cervicogenic headache Depression, major, severe recurrence Lipid disorder Surgical History History of esophagogastroduodenoscopy (EGD) Hx of dilation and curettage History of laryngoscopy History of colonoscopy History of total abdominal hysterectomy History of section History of appendectomy Hx of cholecystectomy History of breast biopsy Family History Mother Breast cancer COPD (chronic obstructive pulmonary disease) Maternal Grandmother No problems noted. Paternal Grandmother Breast cancer Maternal Aunt Breast cancer Other Mental health disorder Substance use disorder Social History Household Members: None Housing: House Are you a primary behavioral health care coordinator to a significant other at home: No Do you presently have visiting nurse or other home services: No Alcohol intake: never Patient Tobacco Use Status: Never used Tobacco e-Cigarette/Vaping Use: Never Used service: No Current occupational status: retired Cognitive needs: No Hearing needs: No Vision needs: No Questionnaire PHQ-9 Over the last 2 weeks, how often have you been bothered by any of the following problems? 1. Little interest or pleasure in doing things: several days 2. Feeling down, depressed, or hopeless: several days 3. Trouble falling or staying asleep, or sleeping too much: several days 4. Feeling tired or having little energy: several days 5. Poor appetite or overeating: several days 6. Feeling bad about yourself - or that you are a failure or have let yourself or your family down: several days 7. Trouble concentrating on things, such as reading the newspaper or watching television: several days 8. Moving or speaking so slowly that other people could have noticed. Or the opposite - being so fidgety or restless that you have been moving around a lot more than usual: not at all 9. Thoughts that you would be better off or of hurting yourself in some way: not at all Total score: 7 Depression Screening Interpretation: Positive Depression Screening Follow-up: Existing condition and In treatment Depression Screening Done: Yes 18326 - PHQ-9 Billing: Yes (Patient already seeing psychiatrist) Source: Developed by Drs. Josh Le, Cammie Brennan, Jr Ortiz and colleagues, with an educational nisha from [employer]. Thrive Questionnaire Date Thrive assessed: 11/08/23 AUDIT C Alcohol Use Questionnaire (AUDIT-C) 1. How often do you have a drink containing alcohol?: Never 3. How often do you have six or more drinks on one occasion?: Never Total Score: 0 Score Reviewed/Action Taken: Yes DANIELA-7 AMB Questionnaire DANIELA-7 Date DANIELA - 7 assessed: 11/15/22 Source: Developed by Drs. Josh Le, Cammie Brennan, Jr Ortiz and colleagues, with an educational nisha from [employer]. Review of Systems Const Denies chills, Denies fever(s) and Denies headache(s) Eyes Denies blurry vision ENT Denies headache(s), Denies nasal discharge, Denies nasal obstruction, Denies odynophagia and Denies sinus pain Card Denies chest pain at rest and Denies chest pain with activity Resp Denies cough and Denies hemoptysis GI Denies diarrhea, Denies odynophagia, Denies vomiting and Denies hematemesis Reports as per HPI Musc Denies abnormal gait Skin/Breast Reports as per HPI Neuro Denies Neuro-related abnormal movements, Denies Abnormal speech present, Denies abnormal gait, Denies headache(s) and Denies Sensory deficit (Neuro) Psych Denies mood swings and Denies paranoia Endo Reports as per HPI Apolinar/Lymph Reports as per HPI Aller/Immun Reports as per HPI Physical exam (Primary Care) Vital Signs: Last Vital Signs Pulse 52 11/20/23 10:18 BP 126/66 11/20/23 10:18 Pulse Ox 98 11/20/23 10:18 Oxygen Delivery Method Room Air 11/20/23 10:18 BMI result Body Mass Index 33.5 Tobacco/Smoking Status: Tobacco use Status Tobacco use date assessed 11/20/23 11/20/23 10:12 Patient Tobacco Use Status Never used Tobacco 11/20/23 10:12 e-Cigarette/Vaping Use Never Used 11/20/23 10:12 Depression Screening Interpretation: Positive Depression Screening Follow-up: Existing condition and In treatment Thrive Assessment: Date of Thrive Assessment Date Thrive assessed 11/08/23 11/20/23 10:12 Const General: cooperative, comfortable and no acute distress Orientation/consciousness: patient oriented x3 HENMT Head: Yes normocephalic and Yes atraumatic Eyes General: appearance normal, both eyes and all related structures Pupils: Equal, round and reactive pupils present EOM: EOMs intact bilaterally Resp Effort & Inspection: normal respiratory effort and able to speak in complete sentences Auscultation: clear to auscultation bilaterally Cardio Heart sounds: S1 normal heart sound present and S2 normal heart sound present GI Palpation (GI): Soft to palpation and nontender Auscultation: normal bowel sounds General: Yes no CVA tenderness Back/Spine/Pelvis Back: no CVA tenderness Skin General skin exam: elasticity normal and turgor normal Neuro General: patient oriented x3 and gait normal Cranial nerves: Yes Equal, round and reactive pupils present Speech: No Abnormal speech present Sensory Exam: No Sensory deficit (Neuro) Coordination: tandem gait normal and Romberg test negative Extrem General: Yes normal exam except as noted and No edema Assessment and Plan Assessment & Plan (1) Encounter for general adult medical examination with abnormal findings: Code(s): Z00.01 - Encounter for general adult medical examination with abnormal findings (2) Hypertension: Code(s): I10 - Essential (primary) hypertension Qualifiers: Hypertension type: primary hypertension Qualified Code(s): I10 - Essential (primary) hypertension (3) Lipid disorder: Code(s): E78.9 - Disorder of lipoprotein metabolism, unspecified (4) Obesity due to excess calories: Code(s): E66.09 - Other obesity due to excess calories Qualifiers: Obesity classification: adult class 1 (BMI 30 - 34.9) Serious obesity comorbidity presence: with serious comorbidity Body mass index: BMI 33.0-33.9 Qualified Code(s): E66.09 - Other obesity due to excess calories; Z68.33 - Body mass index [BMI] 33.0-33.9, adult (5) Impaired fasting blood sugar: Code(s): R73.01 - Impaired fasting glucose Plan Patient is 63-year-old female came in today for physical examination Patient had MRI of cervical spine which showed a lot of abnormalities She recently earlier this month had surgery done on her cervical spine, her headaches have improved she is still recovering from the surgery and have sore neck Blood pressure is stable patient is taking her medications Patient is prediabetic we will repeat labs again at her next visit in 4 months She is also seeing psych med prescriber and is taking zolpidem and subtle a prime through them Declined to do colonoscopy History of hysterectomy Mammogram due in April Follow-up 4 months Orders: Orders Hemoglobin A1c Today E66.09 - Other obesity due to excess calories, E78.9 - Disorder of lipoprotein metabolism, unspecified, I10 - Essential (primary) hypertension, R73.01 - Impaired fasting glucose Complete Blood Count Auto Diff Today E66.09 - Other obesity due to excess calories, E78.9 - Disorder of lipoprotein metabolism, unspecified, I10 - Essential (primary) hypertension, R73.01 - Impaired fasting glucose Comprehensive [place]. Panel Fast Today E66.09 - Other obesity due to excess calories, E78.9 - Disorder of lipoprotein metabolism, unspecified, I10 - Essential (primary) hypertension, R73.01 - Impaired fasting glucose Lipid Panel Today E66.09 - Other obesity due to excess calories, E78.9 - Disorder of lipoprotein metabolism, unspecified, I10 - Essential (primary) hypertension, R73.01 - Impaired fasting glucose Coding Level of Care Code Est Pt Prev Care >65y(14673) Diagnoses Encounter for general adult medical examination with abnormal findings Z00.01 Primary hypertension I10 Hypertension type: primary hypertension Lipid disorder E78.9 Class 1 obesity due to excess calories with serious comorbidity and body mass index (BMI) of 33.0 to 33.9 in adult E66.09; Z68.33 Obesity classification: adult class 1 (BMI 30 - 34.9) Serious obesity comorbidity presence: with serious comorbidity Body mass index: BMI 33.0-33.9 Impaired fasting blood sugar R73.01
[2023-11-20 10:18] VITALS: BP 126/66; PULSE 52; O2SAT 98; BMI 33.5
== END 2023-11-20 10:31 | disposition home or self-care (01) ==
PROVIDERS: PCP Internal Medicine; Visit Provider Internal Medicine
DX: I10 Essential (primary) hypertension (principal); E78.9 Disorder of lipoprotein metabolism, unspecified; E66.09 Other obesity due to excess calories; Z68.33 Body mass index [BMI] 33.0-33.9, adult; R73.01 Impaired fasting glucose
CPT/HCPCS: 99214

== ENCOUNTER 2023-11-26 09:33 | Outpatient (AMB) | payer MEDICARE, SELFPAY ==
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
== END 2023-11-26 10:07 | disposition home or self-care (01) ==
PROVIDERS: PCP Internal Medicine; Visit Provider Physician Assistant
DX: Z90.89 Acquired absence of other organs (principal)
CPT/HCPCS: 99024

== ENCOUNTER → 2023-11-26 09:33 | Outpatient (BNVA) | payer MEDICARE, SELFPAY | PROVIDERS: PCP Internal Medicine; Visit Provider Physician Assistant | DX: Z48.89 Encounter for other specified surgical aftercare (principal) | CPT/HCPCS: 99212 ==

== ENCOUNTER 2023-12-10 13:29 | Outpatient (AMB) | payer MEDICARE, SELFPAY ==
--- NOTE | 2023-12-10 13:49 | HO.SPINEOV ---
Intake Visit Reasons: wound check Intake Note: Ms. Hernandez is here today for wound check. 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 I had her come in today be added to the schedule same-day, so we could evaluate this issue. On examination today it appears her anterior incision site is closed, well healed, with no signs of scabbing, opening, or drainage. There is little to no edema/swelling and certainly no erythema or fluctuance. She reports that she still has some sensitivity to touch over the area, but nothing sharp or stabbing. Apparently her daughter had been discussing with her that it does not ?look good which made her concerned about the incision. I believe it is fully healed over with no obvious signs of complication. We will follow up with Cally again at her next postoperative visit as previously planned. Jeramie Flores MD,PhD [facility] Coding Level of Care Code Global (98514) Diagnoses History of cervical corpectomy Z90.89
== END 2023-12-10 13:57 | disposition home or self-care (01) ==
PROVIDERS: PCP Internal Medicine; Visit Provider Physician Assistant
DX: Z90.89 Acquired absence of other organs (principal)
CPT/HCPCS: 99024

== ENCOUNTER → 2023-12-10 13:29 | Outpatient (BNVA) | payer MEDICARE, SELFPAY | PROVIDERS: PCP Internal Medicine; Visit Provider Physician Assistant | DX: Z48.89 Encounter for other specified surgical aftercare (principal) | CPT/HCPCS: 99212 ==

== ENCOUNTER 2024-01-07 09:01 | Outpatient (REF) | payer MEDICARE, SELFPAY ==
--- NOTE | ~2024-01-07 | XR_ITS ---
EXAMINATION: XR CERVICAL SPINE CLINICAL INFORMATION: Acquired absence of other organs. COMPARISON: Portions of the MRI cervical spine dated 08/09/2023. TECHNIQUE: Frontal and lateral (neutral, flexion and extension) views of the cervical spine are obtained. FINDINGS: Vertebral body heights and alignment are normal. There is well-maintained alignment status-post C4-C6 anterior fusion, with intact anterior fixator plate, fixator screws and C5 corpectomy cage. No hardware failure or loosening is seen. There is mild anterior spondylosis at C3-4. At C6-7, there is moderate degenerative disc disease, endplate arthropathy. No acute fracture or spondylolisthesis is seen. The dens and C7-T1 interface are normal. The posterior elements are intact. There is no prevertebral soft tissue swelling or gas. There are carotid atherosclerotic calcifications, left greater than right. XR/XR cervical spine 4V IMPRESSION: 1. There is well-maintained alignment status-post C4-C6 anterior fusion at C5 corpectomy. No hardware failure or loosening is seen. 2. There are carotid atherosclerotic calcifications, which may be more fully evaluated with dedicated carotid ultrasound, if clinically indicated. Electronically signed by: Gene Franklin MD 01/31/2024 01:45 PM EDT
== END 2024-01-07 09:02 | disposition home or self-care (01) ==
LOC: HO.HOSX 09:01
PROVIDERS: Visit Provider Physician Assistant
DX: Z90.89 Acquired absence of other organs (principal); Z98.1 Arthrodesis status
CPT/HCPCS: 72050; 99212

== ENCOUNTER 2024-01-07 10:45 | Outpatient (AMB) | payer MEDICARE, SELFPAY ==
--- NOTE | 2024-01-07 11:28 | HO.SPINEOV ---
Intake Visit Reasons: 2nd post op with xray Intake Note: is here today for 2nd post-op visit. Circular Tank Cooper Required: No Allergies codeine Allergy (Intermediate, Verified 12/10/23 13:50) Vomiting gabapentin Allergy (Intermediate, Verified 12/10/23 13:50) hives Assessment & Plan Assessment & Plan (1) History of cervical corpectomy: Code(s): Z90.89 - Acquired absence of other organs Category: Surgical Plan Cally is a pleasant 63-year-old female who comes in today for a subsequent follow-up appointment to discuss healing progress after a C5 cervical corpectomy with anterior plating from C4-6 back in early November. She continues to heal very well from her surgery. She reports no continued neck pain unless she attempts extreme lateral rotation of the cervical spine. She reports that her headaches have completely subsided since the surgery. She has been back to regular activity, and recently went on a cruise without issue. She is overall very satisfied with the surgery and asked several questions regarding the postoperative healing course all of which I answered to the best of my ability. No new neurological deficits. The patient is able to ambulate well and rises from a seated position without difficulty. Anterior incision site appears closed and completely healed. There is no need for continued routine follow-up Cally, she is healing very well and has no concerns or complaints at this time. Jeramie Flores MD,PhD [facility] Orders: Orders XR cervical spine 4V Today Z90.89 - Acquired absence of other organs Coding Level of Care Code Global (99368) Diagnoses History of cervical corpectomy Z90.89
== END 2024-01-07 11:45 | disposition home or self-care (01) ==
PROVIDERS: PCP Internal Medicine; Visit Provider Physician Assistant
DX: Z90.89 Acquired absence of other organs (principal)
CPT/HCPCS: 99024

== ENCOUNTER 2024-03-18 09:09 | Outpatient (REF) | payer MEDICARE, SELFPAY ==
[2024-03-18 09:59] LABS: MANUAL DIFF FLAG NO
[2024-03-18 10:06] LABS: Basophils Percent Auto 0.6 % (0-2); Eosinophils Absolute Auto 0.1 X10*3/uL (0.0-0.4); Eosinophils Percent Auto 1.6 % (0-4); Hematocrit 39.6 % (37.0-47.0); Hemoglobin 12.9 g/dl (12.0-16.0); Imm Gran Abs Auto 0.03 X10*3/uL (0.00-0.03); Imm Gran Pct Auto 0.5 % (0.0-0.4); Lymphocytes Absolute Auto 2.1 X10*3/uL (1.2-4.9); Mean Corpuscular HGB Conc 32.6 g/dl (31.0-35.0); Mean Corpuscular Hemoglobin 29.9 pg (27.0-33.0); Mean Corpuscular Volume 91.7 fL (80.0-98.0); Mean Platelet Volume 9.4 fL (9.4-12.3); Monocytes Absolute Auto 0.5 X10*3/uL (0.1-1.2); Monocytes Percent Auto 7.8 % (2-11); Neutrophils Absolute Auto 3.6 x10*3/uL (2.0-8.3); Neutrophils Percent Auto 56.5 % (45-73); Platelet Count 338 X10*3/uL (160-400); Red Blood Count 4.32 X10*6/uL (4.20-5.50); White Blood Count 6.3 X10*3/uL (4.8-10.8)
[2024-03-18 10:18] LABS: Estimated Average Glucose 117 mg/dL; Hemoglobin A1C 128.8116 umol/L; Hemoglobin A1c % 5.7 % (<6.0); Total Hemoglobin (HGBA1C) 3312.2361 umol/L
[2024-03-18 10:27] LABS: Alanine Aminotransferase 31 U/L (0-31); Albumin Level 4.5 g/dL (3.5-5.0); Alkaline Phosphatase 65 U/L (39-117); Anion Gap 13 (12-20); Aspartate Amino Transferase 22 U/L (5-31); Bilirubin Total 0.4 mg/dL (0.0-1.0); Blood Urea Nitrogen 14 mg/dL (9-16); Calcium 10.1 mg/dL (8.4-10.2); Carbon Dioxide 28 mmol/L (22-29); Chloride 104 mmol/L (96-108); Cholesterol 155 mg/dL (<200); Estimated Glomerular Filt Rate > 60; Glucose Fasting 126 mg/dL (60-99); HDL Cholesterol 47 mg/dL (>40); LDL Cholesterol Calculated 88 mg/dL (<100); Potassium 3.9 mmol/L (3.3-5.1); Sodium 141 mmol/L (135-145); Total Protein 7.4 g/dL (6.5-8.0); Triglycerides 104 mg/dL (<150)
== END 2024-03-18 09:10 | disposition home or self-care (01) ==
LOC: HO.HMGCLDS 09:09
PROVIDERS: PCP Internal Medicine; Visit Provider Internal Medicine
DX: I10 Essential (primary) hypertension (principal); E78.9 Disorder of lipoprotein metabolism, unspecified; F33.2 Major depressive disorder, recurrent severe without psychotic features; R73.01 Impaired fasting glucose; E66.09 Other obesity due to excess calories; Z68.33 Body mass index [BMI] 33.0-33.9, adult
CPT/HCPCS: 36415; 80053; 80061; 83036; 85025; 96127; 99212

== ENCOUNTER 2024-03-18 09:27 | Outpatient (AMB) | payer MEDICARE, SELFPAY ==
[2024-03-18 09:33] VITALS: BP 124/62; PULSE 57; O2SAT 95; BMI 33.9
--- NOTE | 2024-03-18 09:33 | A.OFFPC_ITS ---
Vital Signs 03/18/24 09:33 Height 5 ft 2 in Weight 185 lb 2 oz BMI 33.9 BP 124/62 Blood Pressure Location Rt brachial Pulse 57 Pulse Source Pulse Oximeter Pulse Oximetry (%) 95 Oxygen Delivery Method Room Air Intake Visit Reasons: 4 Month F/U Allergies codeine Allergy (Intermediate, Verified 03/18/24 09:33) Vomiting gabapentin Allergy (Intermediate, Verified 03/18/24 09:33) hives Medication List - Last Reconciled 03/18/24 by See Lee MD atenolol 50 mg PO QAM citalopram 40 mg PO BEDTIME clonazepam 0.5 mg PO BID PRN hydrochlorothiazide 25 mg PO QAM simvastatin 20 mg PO BEDTIME tizanidine 4 mg PO Q8H PRN valacyclovir 1,000 mg PO BID PRN zolpidem (Ambien) 10 mg PO BEDTIME Tobacco use date assessed: 03/18/24 Fall risk assessment: No Falls in past year Last assessed Fall Risk: 03/18/24 Dental Screening Dental Screen Date: 03/18/24 Did you have a dental visit in the last 12 months?: Yes Did you have a dental problem in the last 6 months where you did not have access to dental care?: No Was dental information given to patient?: Patient has dentist HPI 4 Month F/U HPI Details Patient is 63-year-old female came in today for follow-up appointment Patient had EGD and colonoscopy done through Dr. Minor August of this year I do not have consultation or the report Patient was told that she has small hiatal hernia She continued to feel something is stuck in her throat She has appointment coming up for follow-up of this month Currently she is taking no PPI Neck pain is stable after surgery Blood pressure is stable patient is taking her medications Patient is prediabetic she just had labs done today I do not have the report yet She is also seeing psych med prescriber and is taking zolpidem and subtle a prime through them Offer no new complaints today BMI is elevated patient is trying to lose weight Follow-up 4 months PFSH Medical History Arthritis Hiatal hernia HTN (hypertension) Oropharyngeal mass Cord compression Hyperosmia Snoring Cervicogenic headache Depression, major, severe recurrence Lipid disorder Surgical History History of esophagogastroduodenoscopy (EGD) Hx of dilation and curettage History of laryngoscopy History of colonoscopy History of total abdominal hysterectomy History of section History of appendectomy Hx of cholecystectomy History of breast biopsy Family History Mother Breast cancer COPD (chronic obstructive pulmonary disease) Maternal Grandmother No problems noted. Paternal Grandmother Breast cancer Maternal Aunt Breast cancer Other Mental health disorder Substance use disorder Social History Household Members: None Housing: House Are you a primary customer care associate to a significant other at home: No Do you presently have visiting nurse or other home services: No Alcohol intake: never Patient Tobacco Use Status: Never used Tobacco e-Cigarette/Vaping Use: Never Used service: No Current occupational status: retired Cognitive needs: No Hearing needs: No Vision needs: No Questionnaire PHQ-9 Over the last 2 weeks, how often have you been bothered by any of the following problems? 1. Little interest or pleasure in doing things: not at all 2. Feeling down, depressed, or hopeless: several days 3. Trouble falling or staying asleep, or sleeping too much: not at all 4. Feeling tired or having little energy: several days 5. Poor appetite or overeating: several days 6. Feeling bad about yourself - or that you are a failure or have let yourself or your family down: not at all 7. Trouble concentrating on things, such as reading the newspaper or watching television: several days 8. Moving or speaking so slowly that other people could have noticed. Or the opposite - being so fidgety or restless that you have been moving around a lot more than usual: not at all 9. Thoughts that you would be better off or of hurting yourself in some way: not at all Total score: 4 Depression Screening Interpretation: Negative Depression Screening Done: Yes [id number] - PHQ-9 Billing: Yes Source: Developed by Drs. Josh Le, Cammie Brennan, Jr Ortiz and colleagues, with an educational nisha from [employer]. Thrive Questionnaire Date Thrive assessed: 03/18/24 I am a: Patient What is your living situation today?: I have a steady place to live Within the past 12 months, did the food you bought not last and you didn't have the money to get more?: Never true Within the past 12 months, did you worry whether your food would run out before you got money to buy more?: Never true Do you have trouble paying for medicines?: No Do you have trouble getting transportation to medical appointments?: No Do you have trouble paying your heating and electricity bill?: No Do you have trouble taking care of your child, family member or friend?: No Do you have trouble with day-to-day activities such as bathing, preparing meals, shopping, managing finances, etc.?: No Are you currently unemployed and looking for a job?: No Are you interested in more education?: No Please select the resources that you would like help with: None Currently or been in a relationship where the following occur: No concerns reported THRIVE Score: 0 AUDIT C Alcohol Use Questionnaire (AUDIT-C) 1. How often do you have a drink containing alcohol?: Never 3. How often do you have six or more drinks on one occasion?: Never Total Score: 0 Score Reviewed/Action Taken: Yes DANIELA-7 AMB Questionnaire DANIELA-7 Date DANIELA - 7 assessed: 03/18/24 Feeling nervous, anxious, or on edge: 1 = Several days Not being able to stop or control worryin = Several days Worrying too much about different things: 0 = Not at all Trouble relaxin = Not at all Being so restless that it is hard to sit still: 0 = Not at all Becoming easily annoyed or irritable: 0 = Not at all Feeling afraid as if something awful might happen: 0 = Not at all Total DANIELA-7 score (0-4 normal; 5-9 mild; 10-14 moderate; 15-21 severe): 2 Source: Developed by Drs. Josh Le, Cammie Brennan, Jr Ortiz and colleagues, with an educational nisha from [employer]. DANIELA-7 Assessment Billing DANIELA-7 Assessment Tool: DANIELA-7 Assessment 48110 Review of Systems Const Denies chills and Denies fever(s) ENT Denies epistaxis and Denies nasal discharge Card Denies chest pain Resp Denies chest congestion, Denies cough and Denies hemoptysis GI Denies diarrhea and Denies nausea Skin/Breast Denies rash Neuro Reports no additional complaints Psych Reports no additional complaints Endo Reports no additional complaints Physical exam (Primary Care) Vital Signs: Last Vital Signs Pulse 57 03/18/24 09:33 BP 124/62 03/18/24 09:33 Pulse Ox 95 03/18/24 09:33 Oxygen Delivery Method Room Air 03/18/24 09:33 BMI result Body Mass Index 33.9 Tobacco/Smoking Status: Tobacco use Status Tobacco use date assessed 03/18/24 03/18/24 09:33 Patient Tobacco Use Status Never used Tobacco 03/18/24 09:33 e-Cigarette/Vaping Use Never Used 03/18/24 09:33 PHQ-9: PHQ-9 Score PHQ-9: Total score 4 03/18/24 10:14 Depression Screening Interpretation: Negative Thrive Assessment: Date of Thrive Assessment Date Thrive assessed 03/18/24 03/18/24 09:53 Currently or been in a relationship where the following occur: No concerns reported Const General: cooperative, comfortable and no acute distress Orientation/consciousness: patient oriented x3 HENMT Head: Yes normocephalic Eyes General: appearance normal, both eyes and all related structures Neck Neck: Yes supple Resp Effort & Inspection: normal respiratory effort, no cough and no stridor Cardio Rhythm: regular rhythm Heart sounds: S1 normal heart sound present and S2 normal heart sound present Skin General skin exam: turgor normal Neuro General: patient oriented x3, tone normal and moves all extremities Extrem Right lower extremity: no edema Left lower extremity: no edema Coding Level of Care Code Est Pt Level 4 (85405) Complex EM visit Add On G2211 Diagnoses Hypertension, essential I10 Lipid disorder E78.9 Severe episode of recurrent major depressive disorder, without psychotic features F33.2 Psychotic features: without psychotic features Impaired fasting blood sugar R73.01 Class 1 obesity due to excess calories with serious comorbidity and body mass index (BMI) of 33.0 to 33.9 in adult E66.09; Z68.33 Body mass index: BMI 33.0-33.9 Obesity classification: adult class 1 (BMI 30 - 34.9) Serious obesity comorbidity presence: with serious comorbidity Additional Codes DANIELA-7 Assessment Billing - DANIELA-7 Assessment Tool: DANIELA-7 Assessment 00106 ([id number]) Assessment & Plan Assessment & Plan (1) Hypertension, essential: Code(s): I10 - Essential (primary) hypertension Category: Medical (2) Lipid disorder: Code(s): E78.9 - Disorder of lipoprotein metabolism, unspecified Category: Medical (3) Depression, major, severe recurrence: Code(s): F33.2 - Major depressive disorder, recurrent severe without psychotic features Category: Medical Qualifiers: Psychotic features: without psychotic features Qualified Code(s): F33.2 - Major depressive disorder, recurrent severe without psychotic features (4) Impaired fasting blood sugar: Code(s): R73.01 - Impaired fasting glucose Category: Medical (5) Obesity due to excess calories: Code(s): E66.09 - Other obesity due to excess calories Category: Medical Qualifiers: Body mass index: BMI 33.0-33.9 Obesity classification: adult class 1 (BMI 30 - 34.9) Serious obesity comorbidity presence: with serious comorbidity Qualified Code(s): E66.09 - Other obesity due to excess calories; Z68.33 - Body mass index [BMI] 33.0-33.9, adult Plan Patient is 63-year-old female came in today for follow-up appointment Patient had EGD and colonoscopy done through Dr. Minor August of this year I do not have consultation or the report Patient was told that she has small hiatal hernia She continued to feel something is stuck in her throat She has appointment coming up for follow-up of this month Currently she is taking no PPI Neck pain is stable after surgery Blood pressure is stable patient is taking her medications Patient is prediabetic she just had labs done today I do not have the report yet She is also seeing psych med prescriber and is taking zolpidem and subtle a prime through them Offer no new complaints today BMI is elevated patient is trying to lose weight Follow-up 4 months Medications: Refilled atenolol 50 mg PO QAM 90 tabs 0RF hydrochlorothiazide 25 mg PO QAM 90 tabs 0RF simvastatin 20 mg PO BEDTIME 90 tabs 1RF Discontinued tizanidine Discontinued Reason: Doctor's Order 4 mg PO Q8H PRN 30 tabs 0RF muscle spasticity
== END 2024-03-18 10:11 | disposition home or self-care (01) ==
PROVIDERS: PCP Internal Medicine; Visit Provider Internal Medicine
DX: I10 Essential (primary) hypertension (principal); E78.9 Disorder of lipoprotein metabolism, unspecified; F33.2 Major depressive disorder, recurrent severe without psychotic features; R73.01 Impaired fasting glucose; E66.09 Other obesity due to excess calories; Z68.33 Body mass index [BMI] 33.0-33.9, adult

== ENCOUNTER 2024-04-04 07:26 | Outpatient (REF) | payer MEDICARE, SELFPAY ==
--- NOTE | ~2024-04-04 | US_ITS ---
EXAMINATION: US ABDOMEN COMPLETE CLINICAL INFORMATION: Epigastric pain. Abdominal pain. COMPARISON: None available. TECHNIQUE: Real-time imaging of the abdominal viscera. Technically limited study secondary to bowel gas. FINDINGS: PANCREAS: The visualized portion of the pancreas head and body are normal, portion of the pancreatic body and tail, not visualized are obscured by bowel gas. ABDOMINAL AORTA: The proximal, mid, and distal segments are normal in caliber. INFERIOR VENA CAVA: Visualized portions are normal. LIVER: The liver is normal in size. The liver contour is normal. Increased echogenicity of the liver parenchyma, this can be seen in the setting of hepatic steatosis or liver parenchymal disease. No focal hepatic lesion. There is no intrahepatic biliary duct dilatation seen. GALLBLADDER: Surgically absent. COMMON BILE DUCT: Normal in caliber measuring 1.1 cm in diameter. RIGHT KIDNEY: No hydronephrosis. No renal calculi or focal parenchymal lesions. The kidney measures 12.6 cm in maximum dimension. LEFT KIDNEY: Normal. No hydronephrosis. No renal calculi or focal parenchymal lesions. The kidney measures 12.4 cm in maximum dimension. SPLEEN: Normal. The spleen measures 10.6 cm in maximum dimension. FREE FLUID: None. US/US abdomen complete IMPRESSION: 1. Status post cholecystectomy. 2. No ultrasound explanation for patient's symptoms. No evidence of gallbladder disease. 3. Increased echogenicity of the liver parenchyma, this can be seen in the setting of hepatic steatosis or liver parenchymal disease. Electronically signed by: Jadiel Mederos MD 04/20/2024 06:59 PM [facility]
== END 2024-04-04 07:27 | disposition home or self-care (01) ==
LOC: HO.US 07:26
PROVIDERS: PCP Internal Medicine; Visit Provider Internal Medicine
DX: R10.13 Epigastric pain (principal)
CPT/HCPCS: 76700

== ENCOUNTER 2024-08-01 12:37 | Outpatient (REF) | payer MEDICARE, SELFPAY ==
[2024-08-01 16:15] LABS: MANUAL DIFF FLAG NO
[2024-08-01 16:22] LABS: Basophils Percent Auto 0.6 % (0-2); Eosinophils Absolute Auto 0.1 X10*3/uL (0.0-0.4); Eosinophils Percent Auto 1.3 % (0-4); Hematocrit 38.8 % (37.0-47.0); Hemoglobin 12.7 g/dl (12.0-16.0); Imm Gran Abs Auto 0.04 X10*3/uL (0.00-0.03); Imm Gran Pct Auto 0.6 % (0.0-0.4); Lymphocytes Absolute Auto 2.1 X10*3/uL (1.2-4.9); Lymphocytes Percent Auto 32.4 % (20-40); Mean Corpuscular HGB Conc 32.7 g/dl (31.0-35.0); Mean Corpuscular Hemoglobin 29.7 pg (27.0-33.0); Mean Corpuscular Volume 90.9 fL (80.0-98.0); Mean Platelet Volume 9.5 fL (9.4-12.3); Monocytes Absolute Auto 0.5 X10*3/uL (0.1-1.2); Monocytes Percent Auto 7.2 % (2-11); Neutrophils Absolute Auto 3.7 x10*3/uL (2.0-8.3); Neutrophils Percent Auto 57.9 % (45-73); Platelet Count 338 X10*3/uL (160-400); Red Blood Count 4.27 X10*6/uL (4.20-5.50); Red Cell Distribution Width 13.2 % (11.0-16.0); White Blood Count 6.4 X10*3/uL (4.8-10.8)
[2024-08-01 16:35] LABS: Alanine Aminotransferase 28 U/L (0-31); Albumin Level 4.4 g/dL (3.5-5.0); Alkaline Phosphatase 65 U/L (39-117); Anion Gap 10 (12-20); Aspartate Amino Transferase 28 U/L (5-31); Bilirubin Total 0.3 mg/dL (0.0-1.0); Blood Urea Nitrogen 13 mg/dL (9-16); Calcium 9.5 mg/dL (8.4-10.2); Carbon Dioxide 26 mmol/L (22-29); Chloride 106 mmol/L (96-108); Estimated Glomerular Filt Rate > 60; Glucose Random 103 mg/dL (60-115); Potassium 3.4 mmol/L (3.3-5.1); Sodium 139 mmol/L (135-145); Total Protein 7.6 g/dL (6.5-8.0)
[2024-08-02 20:29] LABS: LDL Cholesterol Direct 86 mg/dL (<100)
== END 2024-08-01 12:38 | disposition home or self-care (01) ==
LOC: HO.HMGCLDS 12:37
PROVIDERS: PCP Internal Medicine; Visit Provider Internal Medicine
DX: I10 Essential (primary) hypertension (principal); E78.9 Disorder of lipoprotein metabolism, unspecified; K58.2 Mixed irritable bowel syndrome; F33.2 Major depressive disorder, recurrent severe without psychotic features; F41.1 Generalized anxiety disorder
CPT/HCPCS: 36415; 80053; 83721; 85025; 96127; 99212

== ENCOUNTER 2024-08-01 12:37 | Outpatient (AMB) | payer MEDICARE, SELFPAY ==
[2024-08-01 12:55] VITALS: BP 126/62; PULSE 62; RESP 16; TEMP 36.8; O2SAT 98; BMI 34.4
--- NOTE | 2024-08-01 12:55 | A.OFFPC_ITS ---
Vital Signs 08/01/24 12:55 Height 5 ft 2 in Weight 188 lb BMI 34.4 BP 126/62 Blood Pressure Location Rt brachial Position Sitting Respiration 16 Pulse 62 Pulse Source Pulse Oximeter Temp 98.2 F Temp Source Oral Pulse Oximetry (%) 98 Oxygen Delivery Method Room Air Intake Visit Reasons: 4m follow up Allergies codeine Allergy (Intermediate, Verified 08/01/24 12:59) Vomiting gabapentin Allergy (Intermediate, Verified 08/01/24 12:59) hives Medication List - Last Reconciled 08/01/24 by See Lee MD atenolol 50 mg PO QAM citalopram 40 mg PO BEDTIME clonazepam 0.5 mg PO BID PRN hydrochlorothiazide 25 mg PO QAM simvastatin 20 mg PO BEDTIME valacyclovir 1,000 mg PO BID PRN zolpidem (Ambien) 10 mg PO BEDTIME Tobacco use date assessed: 08/01/24 Fall risk assessment: No Falls in past year Last assessed Fall Risk: 08/01/24 Dental Screening Dental Screen Date: 08/01/24 Did you have a dental visit in the last 12 months?: Yes Did you have a dental problem in the last 6 months where you did not have access to dental care?: No Was dental information given to patient?: Patient has dentist HPI 4m follow up HPI Details - The patient is a 64-year-old female pr esenting for regular follow-up on hypertension and lipid disorder - Complains of chronic abdominal pain wi th cramping and tightness occurring spontaneously and diffusely across the abdomen. Patient is established with Dr. Minor She suffers from irritable bowel syndrome diarrhea alternated with constipation - Engages in dietary management and phys ical exercise to mitigate IBS, with clonazepam usage infrequent and reactionary for anxiety. Problem List - Irritable Bowel Syndrome (IBS) - Anxiety - Status Post Neck Surgery - Headache - Gastroesophageal Reflux Disease (GERD) - Hypertension - Hyperlipidemia Patient Instructions - Continue taking prescribed clonazepam consistently every morning for anxiety management. Through psychiatrist - Engage in relaxation techniques to man age stress and reduce anxiety's impact on IBS. - Adhere to current dietary modification s aimed at stabilizing IBS symptoms. - Schedule the non-fasting labs at the [facility] convenience and fasting labs before the next appointment in December. Review of Systems - General: No fever no chills - Neurological: No headaches no dizziness - Ear nose throat: No sore throat no hearing difficulty no ear pain - Cardiovascular: No syncope, no chest pain, no palpitations - Gastrointestinal: No nausea vomiting or diarrhea - Endocrine: No polyuria polydipsia no heat intolerance - Genitourinary: No dysuria , no blood in urine Physical Exam General: No acute distress HEENT: No acute findings Neck: Supple Respiratory system: Able to talk in full sentences, no audible wheeze cardiovascular: S1-S2 regular in rate and rhythm Gastrointestinal: Abdominal cramping and pain reported, exam benign at this time Extremities: No new findings POWDER MONKEY: Alert awake oriented x3 motor sensory intact Skin: Normal turgor PFSH Medical History Arthritis Hiatal hernia HTN (hypertension) Oropharyngeal mass Cord compression Hyperosmia Snoring Cervicogenic headache Depression, major, severe recurrence Lipid disorder Surgical History History of esophagogastroduodenoscopy (EGD) Hx of dilation and curettage History of laryngoscopy History of colonoscopy History of total abdominal hysterectomy History of section History of appendectomy Hx of cholecystectomy History of breast biopsy Family History Mother Breast cancer COPD (chronic obstructive pulmonary disease) Maternal Grandmother No problems noted. Paternal Grandmother Breast cancer Maternal Aunt Breast cancer Other Mental health disorder Substance use disorder Social History Household Members: None Housing: House Are you a primary animal care technician to a significant other at home: No Do you presently have visiting nurse or other home services: No Alcohol intake: never Patient Tobacco Use Status: Never used Tobacco e-Cigarette/Vaping Use: Never Used service: No Current occupational status: retired Cognitive needs: No Hearing needs: No Vision needs: No Questionnaire PHQ-9 Over the last 2 weeks, how often have you been bothered by any of the following problems? 1. Little interest or pleasure in doing things: not at all 2. Feeling down, depressed, or hopeless: not at all 3. Trouble falling or staying asleep, or sleeping too much: not at all 4. Feeling tired or having little energy: several days 5. Poor appetite or overeating: not at all 6. Feeling bad about yourself - or that you are a failure or have let yourself or your family down: not at all 7. Trouble concentrating on things, such as reading the newspaper or watching television: not at all 8. Moving or speaking so slowly that other people could have noticed. Or the opposite - being so fidgety or restless that you have been moving around a lot more than usual: not at all 9. Thoughts that you would be better off or of hurting yourself in some way: not at all Total score: 1 Depression Screening Interpretation: Negative Depression Screening Done: Yes 44643 - PHQ-9 Billing: Yes Source: Developed by Drs. Josh Le, Cammie Brennan, Jr Ortiz and colleagues, with an educational nisha from [employer]. Thrive Questionnaire Date Thrive assessed: 03/18/24 I am a: Patient What is your living situation today?: I have a steady place to live Within the past 12 months, did the food you bought not last and you didn't have the money to get more?: Never true Within the past 12 months, did you worry whether your food would run out before you got money to buy more?: Never true Do you have trouble paying for medicines?: No Do you have trouble getting transportation to medical appointments?: No Do you have trouble paying your heating and electricity bill?: No Do you have trouble taking care of your child, family member or friend?: No Do you have trouble with day-to-day activities such as bathing, preparing meals, shopping, managing finances, etc.?: No Are you currently unemployed and looking for a job?: No Are you interested in more education?: No Please select the resources that you would like help with: None Currently or been in a relationship where the following occur: No concerns reported THRIVE Score: 0 AUDIT C Alcohol Use Questionnaire (AUDIT-C) 1. How often do you have a drink containing alcohol?: Never 3. How often do you have six or more drinks on one occasion?: Never Total Score: 0 DANIELA-7 AMB Questionnaire DANIELA-7 Date DANIELA - 7 assessed: 03/18/24 Feeling nervous, anxious, or on edge: 1 = Several days Not being able to stop or control worryin = More than half the days Worrying too much about different things: 1 = Several days Trouble relaxin = Not at all Being so restless that it is hard to sit still: 0 = Not at all Becoming easily annoyed or irritable: 0 = Not at all Feeling afraid as if something awful might happen: 1 = Several days Total DANIELA-7 score (0-4 normal; 5-9 mild; 10-14 moderate; 15-21 severe): 5 Source: Developed by Drs. Josh Le, Cammie Brennan, Jr Ortiz and colleagues, with an educational nisha from [employer]. Physical exam (Primary Care) Vital Signs: Last Vital Signs Temp 98.2 F 08/01/24 12:55 Pulse 62 08/01/24 12:55 Resp 16 08/01/24 12:55 BP 126/62 08/01/24 12:55 Pulse Ox 98 08/01/24 12:55 Oxygen Delivery Method Room Air 08/01/24 12:55 BMI result Body Mass Index 34.4 Tobacco/Smoking Status: Tobacco use Status Tobacco use date assessed 08/01/24 08/01/24 13:01 Patient Tobacco Use Status Never used Tobacco 08/01/24 13:01 e-Cigarette/Vaping Use Never Used 08/01/24 13:01 PHQ-9: PHQ-9 Score PHQ-9: Total score 1 08/01/24 13:01 Depression Screening Interpretation: Negative Thrive Assessment: Date of Thrive Assessment Date Thrive assessed 03/18/24 08/01/24 13:01 Currently or been in a relationship where the following occur: No concerns reported Coding Level of Care Code Est Pt Level 3 (83907) Diagnoses Hypertension, essential I10 Lipid disorder E78.9 Mixed irritable bowel syndrome K58.2 Severe episode of recurrent major depressive disorder, without psychotic features F33.2 Psychotic features: without psychotic features Anxiety, generalized F41.1 Additional Codes PHQ-9 - 15631 - PHQ-9 Billing: Yes ([id number]) Assessment & Plan Assessment & Plan (1) Hypertension, essential: Code(s): I10 - Essential (primary) hypertension Category: Medical (2) Lipid disorder: Code(s): E78.9 - Disorder of lipoprotein metabolism, unspecified Category: Medical (3) Mixed irritable bowel syndrome: Code(s): K58.2 - Mixed irritable bowel syndrome Category: Medical (4) Depression, major, severe recurrence: Code(s): F33.2 - Major depressive disorder, recurrent severe without psychotic features Category: Medical Qualifiers: Psychotic features: without psychotic features Qualified Code(s): F33.2 - Major depressive disorder, recurrent severe without psychotic features (5) Anxiety, generalized: Code(s): F41.1 - Generalized anxiety disorder Category: Medical Plan - The patient is a 64-year-old female presenting for regular follow-up on hypertension and lipid disorder - Complains of chronic abdominal pain with cramping and tightness occurring spontaneously and diffusely across the abdomen. Patient is established with Dr. Minor She suffers from irritable bowel syndrome diarrhea alternated with constipation - Engages in dietary management and physical exercise to mitigate IBS, with clonazepam usage infrequent and reactionary for anxiety. Problem List - Irritable Bowel Syndrome (IBS) - Anxiety - Status Post Neck Surgery - Headache - Gastroesophageal Reflux Disease (GERD) - Hypertension - Hyperlipidemia Patient Instructions - Continue taking prescribed clonazepam consistently every morning for anxiety management. Through psychiatrist - Engage in relaxation techniques to manage stress and reduce anxiety's impact on IBS. - Adhere to current dietary modifications aimed at stabilizing IBS symptoms. - Schedule the non-fasting labs at the earliest convenience and fasting labs before the next appointment in December. Orders: Orders Complete Blood Count Auto Diff Today E78.9 - Disorder of lipoprotein metabolism, unspecified, I10 - Essential (primary) hypertension LDL Cholesterol Direct Today E78.9 - Disorder of lipoprotein metabolism, unspecified, I10 - Essential (primary) hypertension Lipid Panel 4 Months E78.9 - Disorder of lipoprotein metabolism, unspecified, F33.2 - Major depressive disorder, recurrent severe without psychotic features, F41.1 - Generalized anxiety disorder, I10 - Essential (primary) hypertension, K58.2 - Mixed irritable bowel syndrome TSH reflex Free T4 4 Months E78.9 - Disorder of lipoprotein metabolism, unspecified, F33.2 - Major depressive disorder, recurrent severe without psychotic features, F41.1 - Generalized anxiety disorder, I10 - Essential (primary) hypertension, K58.2 - Mixed irritable bowel syndrome Comprehensive Met. Panel Today E78.9 - Disorder of lipoprotein metabolism, unspecified, I10 - Essential (primary) hypertension Complete Blood Count Auto Diff 4 Months E78.9 - Disorder of lipoprotein metabolism, unspecified, F33.2 - Major depressive disorder, recurrent severe without psychotic features, F41.1 - Generalized anxiety disorder, I10 - Esse ntial (primary) hypertension, K58.2 - Mixed irritable bowel syndrome Comprehensive [place]. Panel Fast 4 Months E78.9 - Disorder of lipoprotein metabolism, unspecified, F33.2 - Major depressive disorder, recurrent severe without psychotic features, F41.1 - Generalized anxiety disorder, I10 - Essential (primary) hypertension, K58.2 - Mixed irritable bowel syndrome Hemoglobin A1c 4 Months E78.9 - Disorder of lipoprotein metabolism, unspecified, F33.2 - Major depressive disorder, recurrent severe without psychotic features, F41.1 - Generalized anxiety disorder, I10 - Essential (primary) hypertension, K58.2 - Mixed irritable bowel syndrome
--- OUTSIDE RECORDS SUMMARY | 2024-08-01 14:41 | XMS_ITS ---
Author Organization [facility] Address [address] [place] [address] Care Team Providers Care Sporting Goods Salesperson Name Role Phone Jesus NOGUERA, [facility] Primary [facility] Provider Josh Lee Unavailable [phone] ALLERGIES Allergen (clinical drug ingredient) Drug/Non Drug Allergy documented on EMR Reaction Allergy Type Onset Date Status gabapentin Gabapentin Unknown Drug Allergy Activ e codeine Codeine Unknown Drug Allergy Active REASON FOR VISIT Patient presents today for a hiatal hernia MEDICATIONS Medication SIG (Take, Route, Frequency, Duration) Notes Start Date End Date Status hydroCHLOROthiazide 25 MG TAKE 1 TABLET BY MOUTH EVERY DAY Oral for 90 Active Cholestyramine 4 GM/DOSE 1/4 to 1 scoop in 8 ounces of water or orange juice Orally Once a day or every other day to improve diarrhea for 30 day(s) 05/11/2023 Active Dicyclomine HCl 10 MG 1 or 2 capsules Or ally Every 4 to 6 hours as needed for abdominal pain. You can take it before you eat as well to see if that helps prevent the episodes of abdominal pain after a meal. for 30 day(s) 03/26/2024 Active Ambien 10 MG 1 tablet at bedtime as needed Orally Once a day Active Omeprazole 20 MG 1 capsule 1/2 to 1 h our before morning meal Orally Once a day for 30 day(s) 03/26/2024 Active Simvastatin 20 MG TAKE 1 TABLET BY TONE TH EVERY DAY AT BEDTIME Oral for 90 Active Atenolol 50 MG TAKE 1 TABLET BY TONE TH EVERY DAY Oral for 90 Active CeleXA 40 MG 0.5 tablet Orally On ce a day for 30 day(s) Active SOCIAL HISTORY Tobacco Use: Social History Observation Description Date Details (start date - stop date) Never Smoker NA - NA Sex Assigned At : Social History Observation Description Sex Assigned At Unknown Tobacco Use/Smoking Question Answer Notes Patient is a nonsmoker Alcohol Screen Question Answer Notes Did you have a drink containing alcohol in the p ast year? No Points 0 Interpretation Negative PROBLEMS Problem Type ICD Code Onset Dates Problem Status W/U Status Risk SNOMED Code Notes Problem Abdominal pain, epigastric (R10.13) Active confirmed Epigastric pain ([id number]) VITAL SIGNS Temperature 97.7 degrees Fahrenheit 03/26/20 24 Blood pressure systolic 118 mm Hg 03/26/20 Blood pressure diastolic 68 mm Hg 024 Height 5 ft 2 in in 03/26/2024 Weight 187 lbs 03/26/2024 BMI 34.20 kg/m2 03/26/2024 Encounters Encounter Location Date Provider Diagnosis [facility] [address] [place] [address] 03/26/2024 Josh Minor Irritable bowel synd real with both constipation and diarrhea K58.2 ; Globus sensation R09.A2 ; Gastroesophageal reflux disease K21.9 and Abdominal pain, epigastric R10.13 ASSESSMENTS Encounter Date Diagnosis Assessment Notes Treatment Notes Treatment Clinical Notes 03/26/2024 Irritable bowel syndrome with both constipation and diarrhea (ICD-10 - K58.2) 03/26/2024 Globus sensation (ICD-10 - R09.A2) 03/26/2024 Gastroesophageal ref lux disease (ICD-10 - K21.9) 03/26/2024 Abdominal pain, epigastric (ICD-10 - R10.13) PLAN OF TREATMENT Medication Medication Name Sig Start Date Stop Date Notes Dicyclomine HCl 10 MG 1 or 2 capsules Or ally Every 4 to 6 hours as needed for abdominal pain. You can take it before you eat as well to see if that helps prevent the episodes of abdominal pain after a meal. for 30 day(s) 03/26/2024 Omeprazole 20 MG 1 capsule 1/2 to 1 h our before morning meal Orally Once a day for 30 day(s) 03/26/2024 Pending Test Test Name Order Date US abdomen complete 03/26/2024 Next Appt Details Follow Up: prn, Reason: Progress Notes * Examination Category Sub-Category Detail Notes General Examination GENERAL APPEARANCE: pleasant , well nourished, well developed, in no acute distress HEAD: EYES: sclera non-icteric EARS: NOSE: THROAT: NECK/THYROID: no cervical lymphade nopathy, neck supple HEART: S1, S2 normal CHEST: LUNGS: clear to auscultatio n bilaterally ABDOMEN: normal bowel sounds, no guarding or rigidity, no guarding or rigidity, no masses palpable, soft, nontender, nondistended NEUROLOGIC: alert and oriented SKIN: nonjaundiced, no spi magdalena angiomata EXTREMITIES: no edema PERIPHERAL PULSES: BACK: BREASTS: MUSCULOSKELETAL: MALE GENITOURINARY: LYMPH NODES: RECTAL EXAM: FEMALE GENITOURINARY: ORAL CAVITY: mucosa moist
--- OUTSIDE RECORDS SUMMARY | 2024-08-01 14:42 | XMS_ITS | Patient Health Record ---
Author Organization [facility] Address [address] [place] [address] Care Team Providers Care Ibm Mainframe Systems Programmer Name Role Phone Jesus NOGUERA, See Primary Care Provider Josh Lee [phone] ALLERGIES Allergen (clinical drug ingredient) Drug/Non Drug Allergy documented on EMR Reaction Allergy Type Onset Date Status gabapentin Gabapentin Unknown Drug Allergy Activ e codeine Codeine Unknown Drug Allergy Active RESULTS Component Value Reference Range Notes MAMMOGRAM DIGITAL BILATERAL SCREEN Reviewed date:03/27/2024 08:30:57 AM Interpretation:Normal Performing Lab: Notes/Report: Normal US abdomen complete Reviewed date:04/28/2024 12:22:55 AM Interpretation: Performing Lab: Notes/Report: [address] [address] Ultrasound Report Signed Patient: Cally Suazo MR#: [id number] : 1960 Acct:[id number] Age/Sex: 63 / F ADM Date: 04/04/24 Loc: HO.US Attending Dr: Josh Minor MD Ordering Physician: Josh Minor MD Date of Service: 04/04/24 Procedure(s): US abdomen complete Accession Number(s): [id number] cc: See Lee MD; Josh Minor MD EXAMINATION: US ABDOMEN COMPLETE CLINICAL INFORMATION: Epigastric pain. Abdominal pain. COMPARISON: None available. TECHNIQUE: Real-time imaging of the abdominal viscera. Technically limited study secondary to bowel gas. FINDINGS: PANCREAS: The visualized portion of the pancreas head and body are normal, portion of the pancreatic body and tail, not visualized are obscured by bowel gas. ABDOMINAL AORTA: The proximal, mid, and distal segments are normal in caliber. INFERIOR VENA CAVA: Visualized portions are normal. LIVER: The liver is normal in size. The liver contour is normal. Increased echogenicity of the liver parenchyma, this can be seen in the setting of hepatic steatosis or liver parenchymal disease. No focal hepatic lesion. There is no intrahepatic biliary duct dilatation seen. GALLBLADDER: Surgically absent. COMMON BILE DUCT: Normal in caliber measuring 1.1 cm in diameter. RIGHT KIDNEY: No hydronephrosis. No renal calculi or focal parenchymal lesions. The kidney measures 12.6 cm in maximum dimension. LEFT KIDNEY: Normal. No hydronephrosis. No renal calculi or focal parenchymal lesions. The kidney measures 12.4 cm in maximum dimension. SPLEEN: Normal. The spleen measures 10.6 cm in maximum dimension. FREE FLUID: None. US/US abdomen complete IMPRESSION: 1. Status post cholecystectomy. 2. No ultrasound explanation for patient's symptoms. No evidence of gallbladder disease. 3. Increased echogenicity of the liver parenchyma, this can be seen in the setting of hepatic steatosis or liver parenchymal disease. Electronically signed by: Jadiel Mederos MD 04/20/2024 06:59 PM [facility] Dictated By: Jadiel Mederos MD Signed By: <Electronically signed by Jadiel Mederos MD in OV> 04/20/24 1859 DD/ 0749 TD/TT: 04/04/24 0808 Superintendent Circus: REASON FOR REFERRAL No Information MEDICATIONS Medication SIG (Take, Route, Frequency, Duration) Notes Start Date End Date Status hydroCHLOROthiazide 25 MG TAKE 1 TABLET BY MOUTH EVERY DAY Oral for 90 Active Cholestyramine 4 GM/DOSE 1/4 to 1 scoop in 8 ounces of water or orange juice Orally Once a day or every other day to improve diarrhea for 30 day(s) 05/11/2023 Active Hyoscyamine Sulfate 0.125 MG Use 1 or 2 Sublingual Every 6 hours as needed for abdominal cramps or bloating for 30 days 05/18/2024 Active Simvastatin 20 MG TAKE 1 TABLET BY TONE TH EVERY DAY AT BEDTIME Oral for 90 Active Atenolol 50 MG TAKE 1 TABLET BY TONE TH EVERY DAY Oral for 90 Active Dicyclomine HCl 10 MG 1 or 2 capsules Or ally Every 4 to 6 hours as needed for abdominal pain. You can take it before you eat as well to see if that helps prevent the episodes of abdominal pain after a meal. for 30 day(s) 03/26/2024 Active Ambien 10 MG 1 tablet at bedtime as needed Orally Once a day Active CeleXA 40 MG 0.5 tablet Orally On ce a day for 30 day(s) Active Omeprazole 20 MG 1 capsule 1/2 to 1 h our before morning meal Orally Once a day for 30 day(s) 03/26/2024 Active IMMUNIZATIONS Vaccine Route Administration Date Status Comme nts Influenza Unknown 03/05/2024 Administered Pneumococcal Unknown 03/20/2023 Administered SOCIAL HISTORY Tobacco Use: Social History Observation [...] W/U Status Risk SNOMED Code Notes Problem Encounter for screening for malignant neoplasm of colon (Z12.11) Active confirmed 004687216 Problem Diverticulosis of large intestine without perforation or abscess without bleeding (K57.30) Active confirmed Diverticul ar disease of colon (234195463) Problem Gastroesophageal reflux disease (K21.9) Active confirmed Gastroesophagea l reflux disease (828856563) Problem Abdominal pain, epigastric (R10.13) Active confirmed Epigastr ic pain (89033828) Problem Oropharyngeal dysphagia (R13.12) Active confirmed 52818875 Problem Chronic gastritis (K29.50) Active confirmed Chronic gastrit is (6695434) Problem Irritable bowel syndrome with both constipation and diarrhea (K58.2) Active confirmed 03563576 Problem Globus sensation (F45.8) Active confirmed Globus sensatio n (219777968) Problem Globus sensation (R09.A2) Active confirmed 165244037 VITAL SIGNS Temperature 97.7 degrees Fahrenheit 03/26/2024 Blood pressure diastolic 68 mm Hg 03/26/2024 Height 5 ft 2 in in 03/26/2024 Blood pressure systolic 118 mm Hg 03/26/2024 Weight 187 lbs 03/26/2024 BMI 34.20 kg/m2 03/26/2024 Encounters Encounter Location Date Provider Diagnosis [facility] [address] [place] [phone] 11/28/2023 Josh Minor [facility] [address] [place] [phone] 03/26/2024 Josh Minor Irritable bowel synd real with both constipation and diarrhea K58.2 ; Globus sensation R09.A2 ; Gastroesophageal reflux disease K21.9 and Abdominal pain, epigastric R10.13 [facility] [address] [place] [phone] 08/03/2023 Josh Minor [facility] [address] [place] [phone] 11/26/2023 Josh Minor [facility] [address] [place] [phone] 04/25/2024 Josh Minor ASSESSMENTS Encounter Date Diagnosis Assessment Notes Treatment Notes Treatment Clinical Notes 03/26/2024 Irritable bowel syndrome with both constipation and diarrhea (ICD-10 - K58.2) 03/26/2024 Globus sensation (ICD-10 - R09.A2) 03/26/2024 Gastroesophageal ref lux disease (ICD-10 - K21.9) 03/26/2024 Abdominal pain, epigastric (ICD-10 - R10.13) PLAN OF TREATMENT Pending Test Test Name Order Date CELIAC PANEL #10 05/11/2023 US abdomen complete 03/26/2024 Future Test Test Name Order Date UPPER GI ENDOSCOPY 05/11/2023 COLONOSCOPY 05/11/2023 Insurance Providers Payer Name Payer Address Payer Phone Subscriber Number Group Number Insured Name Patient Relationship to Insured Coverage Start Date Coverage End Date MEDICARE OF [place] [address] [facility] [place] [address] [id number] CALLY SUAZO Self - patient is the insured MED[employer] ATTN CLAIMS [address] [place] [address] [id number] GABRIELECALLY GRACIA Self - patient is the insured MEDICAL (GENERAL) HISTORY Medical History History ICD Code Hypertension Hyperlipidemia Denies [place],DM,CVA,Lung disease,renal dise ase Negative colonoscopy in 2008 Upper endoscopy in July of 2023-small hiatal hernia but no esophagitis, Bess's esophagus, H. pylori, or celiac disease Colonoscopy in July was negative for polyps, inflammatory bowel disease, and microscopic colitis Surgical History Surgery Date(Month/Year) C-sections hysterectomy cholecystectomy/appy C-spine 11/07/2023
--- OUTSIDE RECORDS SUMMARY | 2024-08-01 14:42 | XMS_ITS ---
Author Organization [facility] Address [address] [place] [phone] Care Team Providers Care Commissioning Specialist Name Role Phone Jesus NOGUERA, [facility] Primary Care Provider Josh Lee [phone] REASON FOR VISIT requesting us results MEDICATIONS Medication SIG (Take, Route, Frequency, Duration) Notes Start Date End Date Status Hyoscyamine Sulfate 0.125 MG Use 1 or 2 Sublingual Every 6 hours as needed for abdominal cramps or bloating for 30 days 05/18/2024 Active Encounters Encounter Location Date Provider Diagnosis [facility] [address] [place] [phone] 04/25/2024 Josh Minor PLAN OF TREATMENT Medication Medication Name Sig Start Date Stop Date Notes Hyoscyamine Sulfate 0.125 MG Use 1 or 2 Sublingual Every 6 hours as needed for abdominal cramps or bloating for 30 days 05/18/2024
--- OUTSIDE RECORDS SUMMARY | 2024-08-01 14:42 | XMS_ITS ---
Author Organization [facility] Address [address] [place] [phone] Care Team Providers Care Cutter Grinder Name Role Phone [facility], [facility] Primary [facility] Provider Josh Lee Unavailable [phone] REASON FOR VISIT Patient presents today for a Hiatal hernia and gastritis, pain in rib cage Encounters Encounter Location Date Provider Diagnosis [facility] [address] [place] [phone] 11/28/2023 Josh Minor PLAN OF TREATMENT No Information
== END 2024-08-01 13:50 | disposition home or self-care (01) ==
PROVIDERS: PCP Internal Medicine; Visit Provider Internal Medicine
DX: I10 Essential (primary) hypertension (principal); E78.9 Disorder of lipoprotein metabolism, unspecified; K58.2 Mixed irritable bowel syndrome; F33.2 Major depressive disorder, recurrent severe without psychotic features; F41.1 Generalized anxiety disorder

== ENCOUNTER 2024-12-03 09:25 | Outpatient (REF) | payer MEDICARE, SELFPAY ==
--- OUTSIDE RECORDS SUMMARY | 2024-12-03 09:40 | XMS_ITS | Patient Health Record ---
Author Organization [facility] Address [address] [place] [address] Care Team Providers Care Operations Research Director Name Role Phone Jesus NOGUERA, See Primary Care Provider Josh Lee [phone] Allergies Allergen (clinical drug ingredient) Drug/Non Drug Allergy documented on EMR Reaction Allergy Type Onset Date Status gabapentin Gabapentin Unknown Drug Allergy Activ e codeine Codeine Unknown Drug Allergy Active Results Component Value Reference Range Notes MAMMOGRAM DIGITAL BILATERAL SCREEN Reviewed date:03/27/2024 08:30:57 AM Interpretation:Normal Performing Lab: Notes/Report: Normal US abdomen complete Reviewed date:04/28/2024 12:22:55 AM Interpretation: Performing Lab: Notes/Report: [address] [address] Ultrasound Report Signed Patient: Cally Suazo MR#: [id number] : 1960 Acct:[id number] Age/Sex: 63 / F ADM Date: 04/04/24 Loc: HO.US Attending Dr: Josh Minor MD Ordering Physician: Josh Minor MD Date of Service: 04/04/24 Procedure(s): US abdomen complete Accession Number(s): [id number] cc: See Lee MD; Josh Minor MD [...] by: Jadiel Mederos MD 04/20/2024 06:59 PM [facility] Dictated By: Jadiel Mederos MD Signed By: <Electronically signed by Jadiel Mederos MD in OV> 04/20/24 1859 DD/ 0749 TD/TT: 04/04/24 0808 Furnace Hand: Reason For Referral No Information Medications Medication SIG (Take, Route, Frequency, Duration) Notes [...] a day for 30 day(s) 03/26/2024 Active Immunizations Vaccine Route Administration Date Status Comme nts Influenza Unknown 03/05/2024 Administered Pneumococcal Unknown 03/20/2023 Administered Social History Tobacco Use: Social History Observation Description Date Details (start date - stop date) Never Smoker NA - NA Tobacco Use/Smoking Question Answer Notes Patient is a nonsmoker Alcohol Screen Question Answer Notes Did you have a drink containing alcohol in the p ast year? No Points 0 Interpretation Negative Problems Problem Type SNOMED Code ICD Code Onset Dates Problem Status W/U Status Risk Notes Problem [id number] Encounter for screening for malignant neoplasm of colon (Z12.11) Active confirmed Problem Diverticular disease of colon (926700697) Diverticulosis of large intestine without perforation or abscess without bleeding (K57.30) Active confirmed Problem Gastroesophageal reflux disease (251757550) Gastroesophageal reflux disease (K21.9) Active confirmed Problem Epigastric pain (96463816) Abdominal pain, epigastric (R10.13) Active confirmed Problem 09242598 Oropharyngeal dysphagia (R13.12) Active confirmed Problem Chronic gastritis (9167207) Chronic gastritis (K29.50) Active confirmed Problem 18064686 Irritable bowel syndrome with both constipation and diarrhea (K58.2) Active confirmed Problem Globus sensation (888740903) Globus sensation (F45.8) Active confirmed Problem 125690930 Globus sensation (R09.A2) Active confirmed Vital Signs Temperature 97.7 degrees Fahrenheit 03/26/2024 Blood pressure diastolic 68 mm Hg 03/26/2024 Height 5 ft 2 in in 03/26/2024 Blood pressure systolic 118 mm Hg 03/26/2024 Weight 187 lbs 03/26/2024 BMI 34.20 kg/m2 03/26/2024 Encounters Encounter Location Date Provider Diagnosis [address] [place] [address] 03/26/2024 Josh Minor Irritable bowel synd real with both constipation and diarrhea K58.2 ; Globus sensation R09.A2 ; Gastroesophageal reflux disease K21.9 and Abdominal pain, epigastric R10.13 [facility] [address] [place] [address] 04/25/2024 Josh Minor Assessments Encounter Date Diagnosis (ICD Code) Assessment Notes Treatment Notes Treatment Clinical Notes Section Notes 03/26/2024 Irritable bowel syndrome with both constipation and diarrhea (ICD-10 - K58.2) Overall, Cally appears quite well. We did review the findings on her GI procedures from earlier in the year and I advised of the need for another colonoscopy in 10 years for further screening. We did review that a lot of her GI complaints may be in relation to irritable bowel syndrome and some underlying anxiety as she does describe a lot of anxiety since the of her a number of years ago. I have given her a prescription to try dicyclomine as needed for her abdominal pain. I did advise her that she could try to take before meals to see if that can help prevent the postprandial upper abdominal pain that she describes. I also recommended that she continue her omeprazole for at least a couple months to see if that gives her any relief from the abdominal discomfort. I am also going to check an abdominal ultrasound in regard to the abdominal pain and how it reminds her of the gallbladder pain prior to the cholecystectomy . I advised her that it would be important to rule out any type of biliary disease such as a common duct stone. However, given a normal liver profile recently that would be unlikely. If the ultrasound is negative and things stabilize on the medical regimen I advised her she can see me on a p.r.n. basis. I advised her to certainly call me if she has any problems or questions I can be of assistance with in the future. Cally was comfortable with this plan. Thank you again for allowing me to participate in Cally's care. I shall continue to keep you advised of her progress. 03/26/2024 Globus sensation (ICD-10 - R09.A2) Overall, Cally appears quite well. We did review the findings on her GI procedures from earlier in the year and I advised of the need for another colonoscopy in 10 years for further screening. We did review that a lot of her GI complaints may be in relation to irritable bowel syndrome and some underlying anxiety as she does describe a lot of anxiety since the of her a number of years ago. I have given her a prescription to try dicyclomine as needed for her abdominal pain. I did advise her that she could try to take before meals to see if that can help prevent the postprandial upper abdominal pain that she describes. I also recommended that she continue her omeprazole for at least a couple months to see if that gives her any relief from the abdominal discomfort. I am also going to check an abdominal ultrasound in regard to the abdominal pain and how it reminds her of the gallbladder pain prior to the cholecystectomy . I advised her that it would be important to rule out any type of biliary disease such as a common duct stone. However, given a normal liver profile recently that would be unlikely. If the ultrasound is negative and things stabilize on the medical regimen I advised her she can see me on a p.r.n. basis. I advised her to certainly call me if she has any problems or questions I can be of assistance with in the future. Cally was comfortable with this plan. Thank you again for allowing me to participate in Cally's care. I shall continue to keep you advised of her progress. 03/26/2024 Gastroesophageal reflux disease (ICD-10 - K21.9) Overall, Cally appears quite well. We did review the findings on her GI procedures from earlier in the year and I advised of the need for another colonoscopy in 10 years for further screening. We did review that a lot of her GI complaints may be in relation to irritable bowel syndrome and some underlying anxiety as she does describe a lot of anxiety since the of her a number of years ago. I have given her a prescription to try dicyclomine as needed for her abdominal pain. I did advise her that she could try to take before meals to see if that can help prevent the postprandial upper abdominal pain that she describes. I also recommended that she continue her omeprazole for at least a couple months to see if that gives her any relief from the abdominal discomfort. I am also going to check an abdominal ultrasound in regard to the abdominal pain and how it reminds her of the gallbladder pain prior to the cholecystectomy . I advised her that it would be important to rule out any type of biliary disease such as a common duct stone. However, given a normal liver profile recently that would be unlikely. If the ultrasound is negative and things stabilize on the medical regimen I advised her she can see me on a p.r.n. basis. I advised her to certainly call me if she has any problems or questions I can be of assistance with in the future. Cally was comfortable with this plan. Thank you again for allowing me to participate in Cally's care. I shall continue to keep you advised of her progress. 03/26/2024 Abdominal pain, epigastric (ICD-10 - R10.13) Overall, Cally appears quite well. We did review the findings on her GI procedures from earlier in the year and I advised of the need for another colonoscopy in 10 years for further screening. We did review that a lot of her GI complaints may be in relation to irritable bowel syndrome and some underlying anxiety as she does describe a lot of anxiety since the of her a number of years ago. I have given her a prescription to try dicyclomine as needed for her abdominal pain. I did advise her that she could try to take before meals to see if that can help prevent the postprandial upper abdominal pain that she describes. I also recommended that she continue her omeprazole for at least a couple months to see if that gives her any relief from the abdominal discomfort. I am also going to check an abdominal ultrasound in regard to the abdominal pain and how it reminds her of the gallbladder pain prior to the cholecystectomy . I advised her that it would be important to rule out any type of biliary disease such as a common duct stone. However, given a normal liver profile recently that would be unlikely. If the ultrasound is negative and things stabilize on the medical regimen I advised her she can see me on a p.r.n. basis. I advised her to certainly call me if she has any problems or questions I can be of assistance with in the future. Cally was comfortable with this plan. Thank you again for allowing me to participate in Cally's care. I shall continue to keep you advised of her progress. Plan Of Treatment Pending Test Test Name Order Date CELIAC PANEL #10 05/11/2023 US abdomen complete 03/26/2024 Future Test Test Name Order Date UPPER GI ENDOSCOPY 05/11/2023 COLONOSCOPY 05/11/2023 Insurance Providers Payer Name Payer Address Payer Phone Subscriber Number Group Number Insured Name Patient Relationship to Insured Coverage Start Date Coverage End Date MEDICARE OF [place] [address] [place] [address] [id number] CALLY SUAZO Self - patient is the insured MED[employer] ATTN CLAIMS [address] [place] [phone] [id number] WOODROW SUAZORICIA Self - patient is the insured Medical (General) History Medical History History ICD Code Hypertension Hyperlipidemia Denies [place],DM,CVA,Lung disease,renal dise ase Negative colonoscopy in 2008 Upper endoscopy in July of 2023-small hiatal hernia but no esophagitis, Bess's esophagus, H. pylori, or celiac disease Colonoscopy in July was negative for polyps, inflammatory bowel disease, and microscopic colitis Surgical History Surgery Date(Month/Year) C-sections hysterectomy cholecystectomy/appy C-spine 11/07/2023
[2024-12-03 13:08] LABS: MANUAL DIFF FLAG NO
[2024-12-03 13:29] LABS: Hematocrit 39.6 % (37.0-47.0); Hemoglobin 13.2 g/dl (12.0-16.0); Imm Gran Abs Auto 0.03 X10*3/uL (0.00-0.03); Imm Gran Pct Auto 0.4 % (0.0-0.4); Lymphocytes Absolute Auto 2.5 X10*3/uL (1.2-4.9); Mean Corpuscular HGB Conc 33.3 g/dl (31.0-35.0); Mean Corpuscular Hemoglobin 30.3 pg (27.0-33.0); Mean Corpuscular Volume 90.8 fL (80.0-98.0); NRBC Abs Auto 0.000 X10*3/uL (0.0-0.012); NRBC Pct Auto 0.0 /100WBC (0.0-0.2); Platelet Count 349 X10*3/uL (160-400); Red Blood Count 4.36 X10*6/uL (4.20-5.50); White Blood Count 6.8 X10*3/uL (4.8-10.8)
[2024-12-03 13:44] LABS: Hemoglobin A1C 141.5450 umol/L; Total Hemoglobin (HGBA1C) 3558.2069 umol/L
[2024-12-03 13:51] LABS: Alanine Aminotransferase 50 U/L (0-31); Albumin Level 4.8 g/dL (3.5-5.0); Alkaline Phosphatase 66 U/L (39-117); Anion Gap 14 (12-20); Aspartate Amino Transferase 40 U/L (5-31); Blood Urea Nitrogen 12 mg/dL (9-16); Calcium 9.6 mg/dL (8.4-10.2); Carbon Dioxide 26 mmol/L (22-29); Chloride 101 mmol/L (96-108); Cholesterol 166 mg/dL (<200); Estimated Glomerular Filt Rate > 60; HDL Cholesterol 48 mg/dL (>40); Potassium 3.9 mmol/L (3.3-5.1); Sodium 137 mmol/L (135-145); Total Protein 7.5 g/dL (6.5-8.0); Triglycerides 137 mg/dL (<150)
== END 2024-12-03 09:26 | disposition home or self-care (01) ==
LOC: HO.HMGCLDS 09:25
PROVIDERS: PCP Internal Medicine; Visit Provider Internal Medicine
DX: Z13.1 Encounter for screening for diabetes mellitus (principal); I10 Essential (primary) hypertension; E78.9 Disorder of lipoprotein metabolism, unspecified; K58.2 Mixed irritable bowel syndrome; E66.09 Other obesity due to excess calories; Z68.33 Body mass index [BMI] 33.0-33.9, adult; R14.0 Abdominal distension (gaseous); F33.2 Major depressive disorder, recurrent severe without psychotic features; F41.1 Generalized anxiety disorder; Z71.3 Dietary counseling and surveillance
CPT/HCPCS: 36415; 80053; 80061; 83036; 84443; 85025; 99212

== ENCOUNTER 2024-12-03 09:36 | Outpatient (AMB) | payer MEDICARE, SELFPAY ==
--- NOTE | 2024-12-03 09:53 | A.OFFPC_ITS ---
Vital Signs 12/03/24 09:54 Height 5 ft 2 in Weight 186 lb BMI 34.0 BP 122/76 Blood Pressure Location Rt brachial Position Sitting Pulse 60 Pulse Source Pulse Oximeter Temp 98.1 F Temp Source Oral Pulse Oximetry (%) 96 Oxygen Delivery Method Room Air Intake Visit Reasons: AWV G0438 Panelbeater Required: No Is last menstrual period known: No Patient : No Allergies codeine Allergy (Intermediate, Verified 12/03/24 09:58) Vomiting gabapentin Allergy (Intermediate, Verified 12/03/24 09:58) hives Tobacco use date assessed: 12/03/24 Dental Screening Dental Screen Date: 12/03/24 Did you have a dental visit in the last 12 months?: Yes Did you have a dental problem in the last 6 months where you did not have access to dental care?: No Was dental information given to patient?: Patient has dentist [facility] Medical History Arthritis Hiatal hernia HTN (hypertension) Oropharyngeal mass Cord compression Hyperosmia Snoring Cervicogenic headache Depression, major, severe recurrence Lipid disorder Surgical History History of esophagogastroduodenoscopy (EGD) Hx of dilation and curettage History of laryngoscopy History of colonoscopy History of total abdominal hysterectomy History of section History of appendectomy Hx of cholecystectomy History of breast biopsy Family History Mother Breast cancer COPD (chronic obstructive pulmonary disease) Maternal Grandmother No problems noted. Paternal Grandmother Breast cancer Maternal Aunt Breast cancer Other Mental health disorder Substance use disorder Social History Household Members: None Housing: House Are you a primary companion caregiver to a significant other at home: No Do you presently have visiting nurse or other home services: No Alcohol intake: never Patient Tobacco Use Status: Never used Tobacco e-Cigarette/Vaping Use: Never Used service: No Current occupational status: retired Cognitive needs: No Hearing needs: No Vision needs: No Questionnaire PHQ-9 Over the last 2 weeks, how often have you been bothered by any of the following problems? 1. Little interest or pleasure in doing things: not at all 2. Feeling down, depressed, or hopeless: not at all 3. Trouble falling or staying asleep, or sleeping too much: not at all 4. Feeling tired or having little energy: several days 5. Poor appetite or overeating: not at all 6. Feeling bad about yourself - or that you are a failure or have let yourself or your family down: not at all 7. Trouble concentrating on things, such as reading the newspaper or watching television: not at all 8. Moving or speaking so slowly that other people could have noticed. Or the opposite - being so fidgety or restless that you have been moving around a lot more than usual: not at all 9. Thoughts that you would be better off or of hurting yourself in some way: not at all Total score: 1 Depression Screening Interpretation: Negative Depression Screening Done: Yes 76484 - PHQ-9 Billing: Yes Source: Developed by Drs. Josh Le, Cammie Brennan, Jr Ortiz and colleagues, with an educational nisha from [employer]. Thrive Questionnaire Date Thrive assessed: 12/03/24 I am a: Patient What is your living situation today?: I have a steady place to live Within the past 12 months, did the food you bought not last and you didn't have the money to get more?: Never true Within the past 12 months, did you worry whether your food would run out before you got money to buy more?: Never true Do you have trouble paying for medicines?: No Do you have trouble getting transportation to medical appointments?: No Do you have trouble paying your heating and electricity bill?: No Do you have trouble taking care of your child, family member or friend?: No Do you have trouble with day-to-day activities such as bathing, preparing meals, shopping, managing finances, etc.?: No Are you currently unemployed and looking for a job?: No Are you interested in more education?: No Please select the resources that you would like help with: None Currently or been in a relationship where the following occur: No concerns reported THRIVE Score: 0 AUDIT C Alcohol Use Questionnaire (AUDIT-C) 2. How many drinks containing alcohol do you have on a typical day when you are drinking?: 1 or 2 Total Score: 0 DANIELA-7 AMB Questionnaire DANIELA-7 Date DANIELA - 7 assessed: 03/18/24 Source: Developed by Drs. Josh Le, Cammie Brennan, Jr Ortiz and colleagues, with an educational nisha from [employer]. Physical exam (Primary Care) Tobacco/Smoking Status: Tobacco use Status Tobacco use date assessed 08/01/24 08/01/24 13:01 Patient Tobacco Use Status Never used Tobacco 08/01/24 13:01 e-Cigarette/Vaping Use Never Used 08/01/24 13:01 Depression Screening Interpretation: Negative Thrive Assessment: Date of Thrive Assessment Date Thrive assessed 07/25/24 11/30/24 12:11 Currently or been in a relationship where the following occur: No concerns reported Coding Additional Codes PHQ-9 - 51183 - PHQ-9 Billing: Yes ([id number])
[2024-12-03 09:54] VITALS: BP 122/76; PULSE 60; TEMP 36.7; O2SAT 96; BMI 34.0
--- NOTE | 2024-12-03 10:13 | A.OFFPC_ITS ---
Vital Signs 12/03/24 09:54 Height 5 ft 2 in Weight 186 lb BMI 34.0 BP 122/76 Blood Pressure Location Rt brachial Position Sitting Pulse 60 Pulse Source Pulse Oximeter Temp 98.1 F Temp Source Oral Pulse Oximetry (%) 96 Oxygen Delivery Method Room Air Intake Visit Reasons: AWV G0438 Allergies codeine Allergy (Intermediate, Verified 12/03/24 09:58) Vomiting gabapentin Allergy (Intermediate, Verified 12/03/24 09:58) hives Medication List - Last Reconciled 12/03/24 by See Lee MD atenolol 50 mg PO QAM clonazepam 0.5 mg PO BID PRN fluoxetine 20 mg PO QAM hydrochlorothiazide 25 mg PO QAM omeprazole 20 mg PO QAM simvastatin 20 mg PO BEDTIME valacyclovir 1,000 mg PO BID PRN zolpidem (Ambien) 10 mg PO BEDTIME Tobacco use date assessed: 08/01/24 Dental Screening Dental Screen Date: 08/01/24 HPI AWV G0438 HPI Details History - The patient is a 64-year-old female pr esenting with bloating and abdominal discomfort. - Symptoms include abdominal discomfort perceived as a bloated sensation. - Past evaluation by a gastroenterologis t Dr. Minor diagnosed the patient with small hiatal hernia. - The patient has been advised to consum e hic-sfw-eyybyuspl foods to alleviate symptoms. Suffers from chronic constipation but does not want to take laxative due to fear of need to go to bathroom suddenly if not home - Difficulty in weight loss despite regu lar physical activity. Blood pressure is stable , she is taking hydrochlorothiazide 25 mg Lipid disorder: Continue simvastatin 20 mg On omeprazole for chronic GERD symptoms Recurrent cold sore stable valacyclovir Social History: - Engages in regular exercise by attendi ng the gym. - Reports maintaining a healthy diet by avoiding gas-producing foods and limiting meat consumption. - Difficulty in weight loss despite life style adjustments. - Joined a gym to assist in weight manag ement. Diagnostic Results: - Labs from July: Normal liver enzym es. - Normal electrolytes and kidney functio n. - Complete blood count (CBC) was reporte d as normal. Patient Instructions - Take a laxative such as Colace or Seno maite as needed for constipation. - Increase water intake to 6-8 glasses d aily. - Maintain a fiber-rich diet to assist w ith bowel regulation. - Book an appointment with a sourcing specialist. For routine skin cancer screening - Consider consultation with an obesity specialist for weight management. - Follow up 4 months Review of Systems - General: No fever no chills - Neurological: No headaches no dizziness - Ear nose throat: No sore throat no hearing difficulty no ear pain - Cardiovascular: No syncope, no chest pain, no palpitations - Gastrointestinal: No nausea vomiting or diarrhea - Endocrine: No polyuria polydipsia no heat intolerance - Genitourinary: No dysuria , no blood in urine Physical Exam General: No acute distress HEENT: No acute findings Neck: Supple Respiratory system: Lungs are clear, able to talk in full sentences, no audible wheeze Cardiovascular: S1-S2 regular in rate and rhythm, Gastrointestinal: Soft nontender Extremities: No swelling, no new findings MONUMENT SETTER: Alert awake oriented x3 motor sensory intact Skin: Normal turgor, PFSH Medical History Arthritis Hiatal hernia HTN (hypertension) Oropharyngeal mass Cord compression Hyperosmia Snoring Cervicogenic headache Depression, major, severe recurrence Lipid disorder Surgical History History of esophagogastroduodenoscopy (EGD) Hx of dilation and curettage History of laryngoscopy History of colonoscopy History of total abdominal hysterectomy History of section History of appendectomy Hx of cholecystectomy History of breast biopsy Family History Mother Breast cancer COPD (chronic obstructive pulmonary disease) Maternal Grandmother No problems noted. Paternal Grandmother Breast cancer Maternal Aunt Breast cancer Other Mental health disorder Substance use disorder Social History Household Members: None Housing: House Are you a primary foster care social worker to a significant other at home: No Do you presently have visiting nurse or other home services: No Alcohol intake: never Patient Tobacco Use Status: Never used Tobacco e-Cigarette/Vaping Use: Never Used service: No Current occupational status: retired Cognitive needs: No Hearing needs: No Vision needs: No Questionnaire Thrive Questionnaire Date Thrive assessed: 03/18/24 I am a: Patient What is your living situation today?: I have a steady place to live Within the past 12 months, did the food you bought not last and you didn't have the money to get more?: Never true Within the past 12 months, did you worry whether your food would run out before you got money to buy more?: Never true Do you have trouble paying for medicines?: No Do you have trouble getting transportation to medical appointments?: No Do you have trouble paying your heating and electricity bill?: No Do you have trouble taking care of your child, family member or friend?: No Do you have trouble with day-to-day activities such as bathing, preparing meals, shopping, managing finances, etc.?: No Are you currently unemployed and looking for a job?: No Are you interested in more education?: No Please select the resources that you would like help with: None Currently or been in a relationship where the following occur: No concerns reported THRIVE Score: 0 AUDIT C Alcohol Use Questionnaire (AUDIT-C) 2. How many drinks containing alcohol do you have on a typical day when you are drinking?: 1 or 2 Total Score: 0 DANIELA-7 AMB Questionnaire DANIELA-7 Date DANIELA - 7 assessed: 03/18/24 Source: Developed by Drs. Josh Le, Cammie Brennan, Jr Ortiz and colleagues, with an educational nisha from [employer]. Physical exam (Primary Care) Vital Signs: Last Vital Signs Temp 98.1 F 12/03/24 09:54 Pulse 60 12/03/24 09:54 BP 122/76 12/03/24 09:54 Pulse Ox 96 12/03/24 09:54 Oxygen Delivery Method Room Air 12/03/24 09:54 BMI result Body Mass Index 34.0 Tobacco/Smoking Status: Tobacco use Status Tobacco use date assessed 08/01/24 12/03/24 10:21 Patient Tobacco Use Status Never used Tobacco 12/03/24 10:21 e-Cigarette/Vaping Use Never Used 12/03/24 10:21 Thrive Assessment: Date of Thrive Assessment Date Thrive assessed 03/18/24 12/03/24 10:21 Currently or been in a relationship where the following occur: No concerns reported Coding Level of Care Code Est Pt Level 4 (47750) Diagnoses Hypertension, essential I10 Lipid disorder E78.9 Mixed irritable bowel syndrome K58.2 Class 1 obesity due to excess calories with serious comorbidity and body mass index (BMI) of 33.0 to 33.9 in adult E66.09; Z68.33 Body mass index: BMI 33.0-33.9 Obesity classification: adult class 1 (BMI 30 - 34.9) Serious obesity comorbidity presence: with serious comorbidity Abdominal bloating R14.0 Severe episode of recurrent major depressive disorder, without psychotic features F33.2 Psychotic features: without psychotic features Anxiety, generalized F41.1 Skin cancer screening Z12. Assessment & Plan Assessment & Plan (1) Hypertension, essential: Code(s): I10 - Essential (primary) hypertension Category: Medical (2) Lipid disorder: Code(s): E78.9 - Disorder of lipoprotein metabolism, unspecified Category: Medical (3) Mixed irritable bowel syndrome: Code(s): K58.2 - Mixed irritable bowel syndrome Category: Medical (4) Obesity due to excess calories: Code(s): E66.09 - Other obesity due to excess calories Category: Medical Qualifiers: Body mass index: BMI 33.0-33.9 Obesity classification: adult class 1 (BMI 30 - 34.9) Serious obesity comorbidity presence: with serious comorbidity Qualified Code(s): E66.09 - Other obesity due to excess calories; Z68.33 - Body mass index [BMI] 33.0-33.9, adult (5) Abdominal bloating: Code(s): R14.0 - Abdominal distension (gaseous) Category: Medical (6) Depression, major, severe recurrence: Comment: Treatment through psychiatrist Code(s): F33.2 - Major depressive disorder, recurrent severe without psychotic features Category: Medical Qualifiers: Psychotic features: without psychotic features Qualified Code(s): F33.2 - Major depressive disorder, recurrent severe without psychotic features (7) Anxiety, generalized: Comment: Treatment through psychiatrist Code(s): F41.1 - Generalized anxiety disorder Category: Medical (8) Skin cancer screening: Code(s): Z12.83 - Encounter for screening for malignant neoplasm of skin Category: Medical Plan History - The patient is a 64-year-old female presenting with bloating and abdominal discomfort. - Symptoms include abdominal discomfort perceived as a bloated sensation. - Past evaluation by a lie detector operator Dr. Minor diagnosed the patient with small hiatal hernia. - The patient has been advised to consume ikc-dfw-oekbdvxud foods to alleviate symptoms. Suffers from chronic constipation but does not want to take laxative due to fear of need to go to bathroom suddenly if not home - Difficulty in weight loss despite regular physical activity. Blood pressure is stable , she is taking hydrochlorothiazide 25 mg Lipid disorder: Continue simvastatin 20 mg On omeprazole for chronic GERD symptoms Recurrent cold sore stable valacyclovir Social History: - Engages in regular exercise by attending the gym. - Reports maintaining a healthy diet by avoiding gas-producing foods and limiting meat consumption. - Difficulty in weight loss despite lifestyle adjustments. - Joined a gym to assist in weight management. Diagnostic Results: - Labs from July: Normal liver enzymes. - Normal electrolytes and kidney function. - Complete blood count (CBC) was reported as normal. Patient Instructions - Take a laxative such as Colace or Senokot as needed for constipation. - Increase water intake to 6-8 glasses daily. - Maintain a fiber-rich diet to assist with bowel regulation. - Book an appointment with a sourcing specialist. For routine skin cancer screening - Consider consultation with an obesity specialist for weight management. - Follow up 4 months Orders: Referrals Dermatology Referral Z12.83 - Encounter for screening for malignant neoplasm of skin Bariatric Surgery Referral E66.09 - Other obesity due to excess calories, Z68.33 - Body mass index [BMI] 33.0-33.9, adult
== END 2024-12-03 10:39 | disposition home or self-care (01) ==
PROVIDERS: PCP Internal Medicine; Visit Provider Internal Medicine
DX: I10 Essential (primary) hypertension (principal); F33.2 Major depressive disorder, recurrent severe without psychotic features; E66.09 Other obesity due to excess calories; Z68.33 Body mass index [BMI] 33.0-33.9, adult; E78.9 Disorder of lipoprotein metabolism, unspecified; K58.2 Mixed irritable bowel syndrome; R14.0 Abdominal distension (gaseous); F41.1 Generalized anxiety disorder; Z12.83 Encounter for screening for malignant neoplasm of skin

== ENCOUNTER 2025-01-22 08:25 | Outpatient (REF) | payer MEDICARE, SELFPAY ==
--- OUTSIDE RECORDS SUMMARY | 2025-01-22 09:16 | XMS_ITS | Patient Health Record ---
Author Organization [facility] Address [address] [place] [address] Care Team Providers Care Yacht Builder Name Role Phone Jesus NOGUERA, See Primary Care Provider Josh Lee [phone] Allergies Allergen (clinical drug ingredient) Drug/Non Drug Allergy documented on EMR Reaction Allergy Type Onset Date Status gabapentin Gabapentin Unknown Drug Allergy Activ e codeine Codeine Unknown Drug Allergy Active Results Component Value Reference Range Notes MAMMOGRAM DIGITAL BILATERAL SCREEN Reviewed date:03/27/2024 08:30:57 AM Interpretation:Normal Performing Lab: Notes/Report: Normal US abdomen complete Reviewed date:04/28/2024 12:22:55 AM Interpretation: Performing Lab: Notes/Report: [address] [address] Ultrasound Report Signed Patient: Cally Suazo MR#: [id number] : 1960 Acct:[id number] Age/Sex: 63 / F ADM Date: 04/04/24 Loc: HO.US Attending Dr: Josh Minor MD Ordering Physician: Josh Minor MD Date of Service: 04/04/24 Procedure(s): US abdomen complete Accession Number(s): [id number] cc: See Lee MD; Josh Minor MD [...] by: Jadiel Mederos MD 04/20/2024 06:59 PM [facility] Dictated By: Jadiel Mederos MD Signed By: <Electronically signed by Jadiel Mederso MD in OV> 04/20/24 1859 DD/ 0749 TD/TT: 04/04/24 0808 Outsole Molder: Reason For Referral No Information Medications Medication [...] Problem Status W/U Status Risk Notes Problem [id number] Encounter for screening for malignant neoplasm of colon (Z12.11) Active confirmed Problem Diverticular disease of colon (276478302) Diverticulosis of large intestine without perforation or abscess without bleeding (K57.30) Active confirmed Problem Gastroesophageal reflux disease (478672340) Gastroesophageal reflux disease (K21.9) Active confirmed Problem Epigastric pain (70177784) Abdominal pain, epigastric (R10.13) Active confirmed Problem 85920094 Oropharyngeal dysphagia (R13.12) Active confirmed Problem Chronic gastritis (1694889) Chronic gastritis (K29.50) Active confirmed Problem 72591467 Irritable bowel syndrome with both constipation and diarrhea (K58.2) Active confirmed Problem Globus sensation (960698218) Globus sensation (F45.8) Active confirmed Problem 179936307 Globus sensation (R09.A2) Active confirmed Vital Signs Temperature 97.7 degrees Fahrenheit 03/26/2024 Blood pressure diastolic 68 mm Hg 03/26/2024 Height 5 ft 2 in in 03/26/2024 Blood pressure systolic 118 mm Hg 03/26/2024 Weight 187 lbs 03/26/2024 BMI 34.20 kg/m2 03/26/2024 Encounters Encounter Location Date Provider Diagnosis [address] [place] [address] 03/26/2024 Josh Minor Irritable bowel synd real with both constipation and diarrhea K58.2 ; Globus sensation R09.A2 ; Gastroesophageal reflux disease K21.9 and Abdominal pain, epigastric R10.13 [facility] [address] [place] [address] 04/25/2024 Josh Minor Assessments Encounter Date Diagnosis [...] OF [place] [address] [place] [address] [phone] [id number] CALLY SUAZO Self - patient is the insured [employer] ATT[employer] CLAIMS [address] [place] [address] [id number] WOODROW SUAZORICIA Self - patient is the insured Medical (General) History Medical History History ICD Code Hypertension Hyperlipidemia Denies [place],DM,CVA,Lung disease,renal dise ase Negative colonoscopy in 2008 Upper endoscopy in July of 2023-small hiatal hernia but no esophagitis, Bess's esophagus, H. pylori, or celiac disease Colonoscopy in July was negative for polyps, inflammatory bowel disease, and microscopic colitis Surgical History Surgery Date(Month/Year) C-sections hysterectomy cholecystectomy/appy C-spine 11/07/2023
[2025-01-22 10:22] LABS: Alanine Aminotransferase 45 U/L (0-31); Albumin Level 4.8 g/dL (3.5-5.0); Alkaline Phosphatase 71 U/L (39-117); Aspartate Amino Transferase 35 U/L (5-31); Total Protein 7.3 g/dL (6.5-8.0)
== END 2025-01-22 08:26 | disposition home or self-care (01) ==
LOC: HO.HMGCLDS 08:25
PROVIDERS: PCP Internal Medicine; Visit Provider Internal Medicine
DX: R79.89 Other specified abnormal findings of blood chemistry (principal)
CPT/HCPCS: 36415; 80076

== ENCOUNTER 2025-02-26 13:14 | Outpatient (REF) | payer MEDICARE, SELFPAY ==
--- OUTSIDE RECORDS SUMMARY | 2023-11-28 10:00 | XMS_ITS ---
Author Organization [facility] Address [address] [place] [phone] Care Team Providers Care Mayonnaise Mixer Name Role Phone Jesus NOGUERA, See Primary Care Provider Josh Lee [phone] REASON FOR VISIT Patient presents today for a Hiatal hernia and gastritis, pain in rib cage Encounters Encounter Location Date Provider Diagnosis [facility] [address] [place] [phone] 11/28/2023 Josh Minor Plan Of Treatment No Information Progress Notes * PARI SUAZO LDOB: (64 yo F)Acc No.[id number]:11/28/2023 Progress Notes Patient: PARI GALVEZ Provider: Raffi Minor MD :1960 A ge:63 Y S ex:Female Date:11/28/2023 Address:[address] [place], [place] [phone] Pcp:See Lee MD Subjective: * Chief Complaints: [...] Minor MD Date: 0 11/28/2023 Generated for Printi ng/Faxing/eTransmitting on: 0 02/26/2025 05:54 PM EDT
--- OUTSIDE RECORDS SUMMARY | 2025-02-26 17:54 | XMS_ITS | Patient Health Record ---
Author Organization [facility] Address [address] [place] [address] Care Team Providers Care Campus Monitor Name Role Phone Jesus NOGUERA, See Primary Care Provider Josh Lee [phone] Allergies Allergen (clinical drug ingredient) Drug/Non Drug Allergy documented on EMR Reaction Allergy Type Onset Date Status gabapentin Gabapentin Unknown Drug Allergy Activ e codeine Codeine Unknown Drug Allergy Active Results Component Value Reference Range Notes MAMMOGRAM DIGITAL BILATERAL SCREEN Reviewed date:03/27/2024 08:30:57 AM Interpretation:Normal Performing Lab: Notes/Report: Normal US abdomen complete Reviewed date:04/28/2024 12:22:55 AM Interpretation: Performing Lab: Notes/Report: [address] [address] Ultrasound Report Signed Patient: Cally Suazo MR#: [id number] : 1960 Acct:[id number] Age/Sex: 63 / F ADM Date: 04/04/24 Loc: HO.US Attending Dr: Josh Minor MD Ordering Physician: Josh Minor MD Date of Service: 04/04/24 Procedure(s): US abdomen complete Accession Number(s): [id number] cc: See Lee MD; Josh Minor MD [...] by: Jadiel Mederos MD 04/20/2024 06:59 PM [facility] Dictated By: Jadiel Mederos MD Signed By: <Electronically signed by Jadiel Mederos MD in OV> 04/20/24 1859 DD/ 0749 TD/TT: 04/04/24 0808 Etl Lead: Reason For Referral No Information Medications Medication [...] Problem Status W/U Status Risk Notes Problem [id number] Encounter for screening for malignant neoplasm of colon (Z12.11) Active confirmed Problem Diverticular disease of colon (706237680) Diverticulosis of large intestine without perforation or abscess without bleeding (K57.30) Active confirmed Problem Gastroesophageal reflux disease (315444783) Gastroesophageal reflux disease (K21.9) Active confirmed Problem Epigastric pain (87356610) Abdominal pain, epigastric (R10.13) Active confirmed Problem 25631182 Oropharyngeal dysphagia (R13.12) Active confirmed Problem Chronic gastritis (7884113) Chronic gastritis (K29.50) Active confirmed Problem 12407427 Irritable bowel syndrome with both constipation and diarrhea (K58.2) Active confirmed Problem Globus sensation (789356862) Globus sensation (F45.8) Active confirmed Problem 524578317 Globus sensation (R09.A2) Active confirmed Vital Signs Temperature 97.7 degrees Fahrenheit 03/26/2024 Blood pressure diastolic 68 mm Hg 03/26/2024 Height 5 ft 2 in in 03/26/2024 Blood pressure systolic 118 mm Hg 03/26/2024 Weight 187 lbs 03/26/2024 BMI 34.20 kg/m2 03/26/2024 Encounters Encounter Location Date Provider Diagnosis [address] [place] [address] 03/26/2024 Josh Minor Irritable bowel synd real with both constipation and diarrhea K58.2 ; Globus sensation R09.A2 ; Gastroesophageal reflux disease K21.9 and Abdominal pain, epigastric R10.13 [facility] [address] [place] [address] 04/25/2024 Josh Minor Assessments Encounter Date Diagnosis [...] OF [place] [address] [place] [address] [id number] CALLY SUAZO Self - patient is the insured [employer] ATT[employer] CLAIMS [address] [place] [address] [id number] WOODROW SUAZORICIA Self - patient is the insured Medical (General) History Medical History History ICD Code Hypertension Hyperlipidemia Denies [place],DM,CVA,Lung disease,renal dise ase Negative colonoscopy in 2008 Upper endoscopy in July of 2023-small hiatal hernia but no esophagitis, Bess's esophagus, H. pylori, or celiac disease Colonoscopy in July was negative for polyps, inflammatory bowel disease, and microscopic colitis Surgical History Surgery Date(Month/Year) C-sections hysterectomy cholecystectomy/appy C-spine 11/07/2023
== END 2025-02-26 13:15 | disposition home or self-care (01) ==
LOC: HO.MAMMO 13:14
PROVIDERS: PCP Internal Medicine; Visit Provider Internal Medicine
DX: Z12.31 Encounter for screening mammogram for malignant neoplasm of breast (principal)
CPT/HCPCS: 77063; 77067

== ENCOUNTER → 2025-02-26 13:45 | Outpatient (BNV) | payer MEDICARE, SELFPAY | PROVIDERS: PCP Internal Medicine; Visit Provider Internal Medicine | DX: Z12.31 Encounter for screening mammogram for malignant neoplasm of breast (principal) | CPT/HCPCS: 77063; 77067 ==

== ENCOUNTER 2025-03-10 08:56 | Outpatient (AMB) | payer MEDICARE, SELFPAY ==
--- OUTSIDE RECORDS SUMMARY | 2023-11-28 10:00 | XMS_ITS ---
Author Organization [facility] Address [address] [place] [phone] Care Team Providers Care Forms Analysis Manager Name Role Phone Jesus NOGUERA, See Primary Care Provider Josh Lee [phone] REASON FOR VISIT Patient presents today for a Hiatal hernia and gastritis, pain in rib cage Encounters Encounter Location Date Provider Diagnosis [facility] [address] [place] [phone] 11/28/2023 Josh Minor Plan Of Treatment No Information Progress Notes * PARI SUAZO LDOB: (64 yo F)Acc No.[id number]:11/28/2023 Progress Notes Patient: PARI GALVEZ Provider: Raffi Minor MD :1960 A ge:63 Y S ex:Female Date:11/28/2023 Address:[address] [place], [place] [phone] Pcp:See Lee MD Subjective: * Chief Complaints: [...] 0 11/28/2023 Generated for Printi ng/Faxing/eTransmitting on: 1 09:45 AM EDT
[2025-03-10 08:58] VITALS: BP 130/64; PULSE 62; O2SAT 97; BMI 34.7
--- NOTE | 2025-03-10 08:58 | AM.OFFVISMDC ---
Intake Vital Signs 03/10/25 08:58 Height 5 ft 2 in Weight 190 lb BMI 34.7 BP 130/64 Blood Pressure Location Lt brachial Position Sitting Pulse 62 Pulse Source Pulse Oximeter Pulse Oximetry (%) 97 Intake Visit Reasons: SWV G0439 - see comments Allergies codeine Allergy (Intermediate, Verified 03/10/25 08:58) Vomiting gabapentin Allergy (Intermediate, Verified 03/10/25 08:58) hives Medication List - Last Reconciled 03/10/25 by See Lee MD atenolol 50 mg PO QAM clonazepam 0.5 mg PO BID PRN fluoxetine 20 mg PO QAM hydrochlorothiazide 25 mg PO QAM omeprazole 20 mg PO QAM simvastatin 20 mg PO BEDTIME zolpidem 10 mg PO BEDTIME PRN Do you need a note to return to daycare/school/sports/work: No HPI [facility] G0439 - see comments HPI Details History of Present Illness The patient is a 64-year-old female presenting with a Medicare wellness visit and irritation from a dermatological procedure. Dermatological irritation: - The patient experienced irritation from a dermatological procedure where a lesion on the back was frozen and is described as pretty big. - The procedure was performed by a cut lace machine operator at [facility]. - The lesion on the back is currently causing discomfort, particularly at night as it potentially rubs against surfaces, interrupting the patient's sleep. - The patient reports a similar procedure was done on the face where a lesion fell off, suggesting successful healing. - Follow-up with the cut lace machine operator is scheduled for April 27. Medical History: - Hiatal hernia diagnosis following colonoscopy and endoscopy by Dr. Minor - Mental health management with psychiatrist, Zeinab Melchor, for medications - Psychotherapy with therapistZoila Surgical History: - Hysterectomy Social History: - Engaged in weight management program - Recently attended first appointment and another scheduled for April 13 - Planned travel that includes a cruise and a visit to [place] - Limited alcohol consumption, mostly supervising friends during social gatherings Diagnostic Results: - Colonoscopy conducted six months ago by Dr. Minor revealing a hiatal hernia Problem List - Dermatological irritation post-procedure - Hiatal hernia - Mental health management (psychiatrist and therapist visits) - Weight management participation Plan - Discussed soothing measures for dermatological irritation on the back, recommended covering with a bandage, especially at night to prevent irritation. - Advised monitoring for signs of inflammation or infection and to avoid extreme exposure to irritants until healed. - Scheduled follow-up with cut lace machine operator on April 27 for further evaluation. - Discussed anticipated health management including periodic assessments for mental health and collaborative review of medication regimen with psychiatrist Zeinab Melchor. - Advised continuation of participation in weight management programs, alongside self-monitoring blood pressure given potential linkage to weight. - Health maintenance review emphasized the importance of regular preventive screenings and updates including flu and tetanus vaccinations. 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 Vital signs reviewed Alcohol tobacco drug use reviewed and discussed . MMSE completed . ? Fall risk: ?Assessed Fall history: ?None Have you had any falls with injury in the past year?? No Have you had 2 or more falls in the past year?? No Fall risk assessment completed Home safety discussed with the patient Functional ability assessed and discussed and documented Activities of daily living reviewed and appropriate actions taken . HRA filled out by the patient and reviewed by provider and scanned . Appropriate written screening schedule established . Any health advise needed provided . Advance care planning discussed with the patient , necessary paperwork filled Examination IPPE/AWE: Balance intact Romberg intact Tandem walk intact walk-in turn intact rise from sit to stand intact . ?Hearing ?whisper test pass . Medication list reviewed, patient is stable on medications All other providers patient is seeing discussed and noted . [facility] Medical History Arthritis Hiatal hernia HTN (hypertension) Oropharyngeal mass Cord compression Hyperosmia Snoring Cervicogenic headache Depression, major, severe recurrence Lipid disorder Surgical History History of esophagogastroduodenoscopy (EGD) Hx of dilation and curettage History of laryngoscopy History of colonoscopy History of total abdominal hysterectomy History of section History of appendectomy Hx of cholecystectomy History of breast biopsy Family History Mother Breast cancer COPD (chronic obstructive pulmonary disease) Maternal Grandmother No problems noted. Paternal Grandmother Breast cancer Maternal Aunt Breast cancer Other Mental health disorder Substance use disorder Social History Household Members: None Housing: House Are you a primary floor care specialist to a significant other at home: No Do you presently have visiting nurse or other home services: No Alcohol intake: never Patient Tobacco Use Status: Never used Tobacco e-Cigarette/Vaping Use: Never Used service: No Current occupational status: retired Cognitive needs: No Hearing needs: No Vision needs: No Questionnaire Medicare Wellness Checkup [age] What gender do you identify with?: female During the past 4 weeks, how much have you been bothered by emotional problems such as feeling anxious, depressed, irritable, sad or downhearted, and blue?: moderately During the past 4 weeks, has your physical & emotional health limited your social activities with family, friends, neighbors, or groups?: slightly During the past 4 weeks, how much bodily pain have you generally had?: mild pain During the past 4 weeks, was someone available to help you if you needed & wanted help?: yes, quite a bit During the past 4 weeks, what was the hardest physical activity you could do for at least 2 minutes?: moderate Can you get to places out of walking distance without help? (For eg., can you travel alone on buses, taxis or drive your car?): Yes Can you go shopping for groceries or clothes without someone's help?: Yes Can you prepare your own meals?: Yes Can you do your housework without help?: Yes Because of any health problems, do you need the help of another person with your personal care needs such as eating, bathing, dressing or getting around the house?: No Can you handle your own money without help?: Yes During the past 4 weeks, how would you rate your health in general?: good During the past 4 weeks how have things been going for you?: good & bad parts about equal Are you having difficulties driving your car?: no Do you always fasten your seat belt when you are in a car?: yes, usually During past 4 weeks, have you been bothered by the following: never: Sexual problems?, Teeth or denture problems? and Problems using the telephone? and sometimes: Falling or dizzy when standing up, Trouble eating well? and Tiredness or fatigue? Have you fallen 2 or more times in the past year?: No Are you afraid of falling?: No Are you a smoker?: no During the past 4 weeks, how many drinks of wine, beer, or other alcoholic beverages did you have?: no alcohol at all Do you exercise for about 20 minutes 3 or more times a week?: yes, some of the time Have you been given information to help with the following?: no: Hazards in your house that might hurt you? and no: Keeping track of your medications? How often do you have trouble taking medicines the way you have been told to take them?: I always take medicine as prescribed How confident are you that you can control & manage most of your health problems?: somewhat confident What is your race?: White Mini Mental State Exam (MMSE) Orientation What is the (year) (season) (date) (day) (month)?: year, season, date, day and month Where are we (state) (county) (town or city) (hospital) (floor)?: state, county, town or city, hospital/clinic and floor Score Score: 10 Activity of Daily Living Bathing - sponge bath, tub bath or shower: receives no assistance (gets in/out by self, if usual bathing means Dressing - getting clothes from closets & drawers, including inner/outer garments & fasteners.: gets clothes & gets completely dressed without help Toileting - going to the 'toilet room' for urine/bowel elimination & cleaning self/arranging clothes: goes to toilet room, cleans self, arranges clothes without help Transfer: moves in & out of bed and chair without help (may use support object) Continence: controls urination/bowel movements completely by self Feeding: feeds self without help Total Score: 0 Information obtained from: patient Using telephone: independent Traveling: independent Shopping: independent Preparing meals: independent Housework: independent Taking medicine: independent Managing money: independent PHQ-9 Over the last 2 weeks, how often have you been bothered by any of the following problems? 1. Little interest or pleasure in doing things: several days 2. Feeling down, depressed, or hopeless: several days 3. Trouble falling or staying asleep, or sleeping too much: several days 4. Feeling tired or having little energy: several days 5. Poor appetite or overeating: several days 6. Feeling bad about yourself - or that you are a failure or have let yourself or your family down: several days 7. Trouble concentrating on things, such as reading the newspaper or watching television: several days 8. Moving or speaking so slowly that other people could have noticed. Or the opposite - being so fidgety or restless that you have been moving around a lot more than usual: several days 9. Thoughts that you would be better off or of hurting yourself in some way: not at all Total score: 8 Depression Screening Interpretation: Positive Depression Screening Done: Yes 11598 - PHQ-9 Billing: Yes Source: Developed by Drs. Josh Le, Cammie Brennan, Jr Ortiz and colleagues, with an educational nisha from [employer]. DANIELA-7 AMB Questionnaire DANIELA-7 Date DANIELA - 7 assessed: 03/10/25 Feeling nervous, anxious, or on edge: 1 = Several days Not being able to stop or control worryin = Several days Worrying too much about different things: 0 = Not at all Trouble relaxin = Not at all Being so restless that it is hard to sit still: 0 = Not at all Becoming easily annoyed or irritable: 0 = Not at all Feeling afraid as if something awful might happen: 0 = Not at all Total DANIELA-7 score (0-4 normal; 5-9 mild; 10-14 moderate; 15-21 severe): 2 Source: Developed by Drs. Josh Le, Cammie Brennan, Jr Ortiz and colleagues, with an educational nisha from [employer]. DANIELA-7 Assessment Billing DANIELA-7 Assessment Tool: DANIELA-7 Assessment 24759 Physical Exam Vital Signs: Last Vital Signs Pulse 62 03/10/25 08:58 BP 130/64 03/10/25 08:58 Pulse Ox 97 03/10/25 08:58 BMI result Body Mass Index 34.7 Assessment & Plan Assessment & Plan (1) Medicare annual wellness visit, subsequent: Code(s): Z00.00 - Encounter for general adult medical examination without abnormal findings (2) Skin irritation: Code(s): R23.8 - Other skin changes Plan History of Present Illness The patient is a 64-year-old female presenting with a Medicare wellness visit and irritation from a dermatological procedure. Dermatological irritation: - The patient experienced irritation from a dermatological procedure where a lesion on the back was frozen and is described as pretty big. - The procedure was performed by a cut lace machine operator at [facility]. - The lesion on the back is currently causing discomfort, particularly at night as it potentially rubs against surfaces, interrupting the patient's sleep. - The patient reports a similar procedure was done on the face where a lesion fell off, suggesting successful healing. - Follow-up with the cut lace machine operator is scheduled for April 27. Medical History: - Hiatal hernia diagnosis following colonoscopy and endoscopy by Dr. Minor - Mental health management with psychiatrist, Zeinab Melchor, for medications - Psychotherapy with therapist, Zoila Surgical History: - Hysterectomy Social History: - Engaged in weight management program - Recently attended first appointment and another scheduled for April 13 - Planned travel that includes a cruise and a visit to [place] - Limited alcohol consumption, mostly supervising friends during social gatherings Diagnostic Results: - Colonoscopy conducted six months ago by Dr. Minor revealing a hiatal hernia Problem List - Dermatological irritation post-procedure - Hiatal hernia - Mental health management (psychiatrist and therapist visits) - Weight management participation Plan - Discussed soothing measures for dermatological irritation on the back, recommended covering with a bandage, especially at night to prevent irritation. - Advised monitoring for signs of inflammation or infection and to avoid extreme exposure to irritants until healed. - Scheduled follow-up with cut lace machine operator on April 27 for further evaluation. - Discussed anticipated health management including periodic assessments for mental health and collaborative review of medication regimen with psychiatrist Zeinab Melchor. - Advised continuation of participation in weight management programs, alongside self-monitoring blood pressure given potential linkage to weight. - Health maintenance review emphasized the importance of regular preventive screenings and updates including flu and tetanus vaccinations. Quality Reporting (2019) Depression/Bipolar (159/160/161/177) PHQ-9: Total score: 8 Coding Level of Care Code Medicare Subsequent (G0439) Est Pt Level 3 (11311) Diagnoses Medicare annual wellness visit, subsequent Z00.00 Skin irritation R23.8 CPT Codes Advance Care Planning - Time spent: 1-15 minutes, on File ([id number]) Additional Codes DANIELA-7 Assessment Billing - DANIELA-7 Assessment Tool: DANIELA-7 Assessment 47601 ([id number]) PHQ-9 - 30841 - PHQ-9 Billing: Yes ([id number]) Advance Care Planning Forms completed: Health Care Proxy Time spent: 1-15 minutes, on File
--- OUTSIDE RECORDS SUMMARY | 2025-03-10 09:45 | XMS_ITS | Patient Health Record ---
Author Organization [facility] Address [address] [place] [address] Care Team Providers Care Frame Straightener Name Role Phone Jesus NOGUERA, See Primary Care Provider Josh Lee [phone] Allergies Allergen (clinical drug ingredient) Drug/Non Drug Allergy documented on EMR Reaction Allergy Type Onset Date Status gabapentin Gabapentin Unknown Drug Allergy Activ e codeine Codeine Unknown Drug Allergy Active Results Component Value Reference Range Notes MAMMOGRAM DIGITAL BILATERAL SCREEN Reviewed date:03/27/2024 08:30:57 AM Interpretation:Normal Performing Lab: Notes/Report: Normal US abdomen complete Reviewed date:04/28/2024 12:22:55 AM Interpretation: Performing Lab: Notes/Report: [address] [address] Ultrasound Report Signed Patient: Cally Suazo MR#: [id number] : 1960 Acct:[id number] Age/Sex: 63 / F ADM Date: 04/04/24 Loc: HO.US Attending Dr: Josh Minor MD Ordering Physician: Josh Minor MD Date of Service: 04/04/24 Procedure(s): US abdomen complete Accession Number(s): [id number] cc: See Lee MD; Josh Minor MD [...] by: Jadiel Mederos MD 04/20/2024 06:59 PM [facility] Dictated By: Jadiel Mederos MD Signed By: <Electronically signed by Jadiel Mederos MD in OV> 04/20/24 1859 DD/ 0749 TD/TT: 04/04/24 0808 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: Reason For Referral No Information Medications Medication [...] Problem Status W/U Status Risk Notes Problem 113244114 Encounter for screening for malignant neoplasm of colon (Z12.11) Active confirmed Problem Diverticular disease of colon (031491440) Diverticulosis of large intestine without perforation or abscess without bleeding (K57.30) Active confirmed Problem Gastroesophageal reflux disease (976037765) Gastroesophageal reflux disease (K21.9) Active confirmed Problem Epigastric pain (64343298) Abdominal pain, epigastric (R10.13) Active confirmed Problem 22312687 Oropharyngeal dysphagia (R13.12) Active confirmed Problem Chronic gastritis (2353489) Chronic gastritis (K29.50) Active confirmed Problem 09083365 Irritable bowel syndrome with both constipation and diarrhea (K58.2) Active confirmed Problem Globus sensation (955421152) Globus sensation (F45.8) Active confirmed Problem 385215553 Globus sensation (R09.A2) Active confirmed Vital Signs Temperature 97.7 degrees Fahrenheit 03/26/2024 Blood pressure diastolic 68 mm Hg 03/26/2024 Height 5 ft 2 in in 03/26/2024 Blood pressure systolic 118 mm Hg 03/26/2024 Weight 187 lbs 03/26/2024 BMI 34.20 kg/m2 03/26/2024 Encounters Encounter Location Date Provider Diagnosis [address] [place] [address] 03/26/2024 Josh Minor Irritable bowel synd real with both constipation and diarrhea K58.2 ; Globus sensation R09.A2 ; Gastroesophageal reflux disease K21.9 and Abdominal pain, epigastric R10.13 [facility] [address] [place] [address] 04/25/2024 Josh Minor Assessments Encounter Date Diagnosis [...] OF [place] [address] [place] [address] [phone] [id number] CALLY SUAZO Self - patient is the insured [employer] ATT[employer] CLAIMS [address] [place] [address] [id number] WOODROW SUAZORICIA Self - patient is the insured Medical (General) History Medical History History ICD Code Hypertension Hyperlipidemia Denies AR,DM,CVA,Lung disease,renal dise ase Negative colonoscopy in 2008 Upper endoscopy in July of 2023-small hiatal hernia but no esophagitis, Bess's esophagus, H. pylori, or celiac disease Colonoscopy in July was negative for polyps, inflammatory bowel disease, and microscopic colitis Surgical History Surgery Date(Month/Year) C-sections hysterectomy cholecystectomy/appy C-spine 11/07/2023
== END 2025-03-10 09:30 | disposition home or self-care (01) ==
LOC: HO.HMCC 08:56
PROVIDERS: PCP Internal Medicine; Visit Provider Internal Medicine
DX: Z00.00 Encounter for general adult medical examination without abnormal findings (principal); R23.8 Other skin changes

== ENCOUNTER → 2025-03-10 08:56 | Outpatient (BNVA) | payer MEDICARE, SELFPAY | PROVIDERS: PCP Internal Medicine; Visit Provider Internal Medicine | DX: Z00.00 Encounter for general adult medical examination without abnormal findings (principal); R23.8 Other skin changes | CPT/HCPCS: 96127 ==

== ENCOUNTER 2025-04-07 10:53 | Outpatient (AMB) | payer MEDICARE, SELFPAY ==
--- OUTSIDE RECORDS SUMMARY | 2023-11-28 09:00 | XMS_ITS ---
Author Organization [facility] Address [address] [place] [phone] Care Team Providers Care Rn Complex Care Name Role Phone Jesus NOGUERA, See Primary Care Provider Josh Lee [phone] REASON FOR VISIT Patient presents today for a Hiatal hernia and gastritis, pain in rib cage Encounters Encounter Location Date Provider Diagnosis [facility] [address] [place] [phone] 11/28/2023 Josh Minor Plan Of Treatment No Information Progress Notes * PARI SUAZO LDOB: (64 yo F)Acc No.[id number]:11/28/2023 Progress Notes Patient: PARI GALVEZ Provider: Raffi Minor MD :1960 A ge:63 Y S ex:Female Date:11/28/2023 Address:[address] [place], [place] [id number] Pcp:See Lee MD Subjective: * Chief Complaints: * 1 . Patient presents today for a Hiatal hernia and gastritis, pain in rib cage . * Medical History: Objective: * Vitals: Assessment: Plan: * Treatment: * * The named appointment provid er may or may not be the originator of this progress note, and it is not deemed complete until electronically signed by the appointment provider. Sign off status: Pending * Provider: Raffi Minor MD Date: 0 11/28/2023 Generated for Cynthiai ng/Faranjeetg/eTransmitting on: 06/07/2024 01:08 PM EST
--- NOTE | 2025-04-07 10:54 | A.OFFPC_ITS ---
Vital Signs 04/07/25 10:55 Height 5 ft 2 in Weight 193 lb BMI 35.3 BP 130/70 Blood Pressure Location Lt brachial Position Sitting Pulse 63 Pulse Source Pulse Oximeter Pulse Oximetry (%) 97 Oxygen Delivery Method Room Air Intake Visit Reasons: 1 mo follow up Allergies codeine Allergy (Intermediate, Verified 04/07/25 10:55) Vomiting gabapentin Allergy (Intermediate, Verified 04/07/25 10:55) hives Medication List - Last Reconciled 04/07/25 by See Lee MD atenolol 50 mg PO QAM clonazepam 0.5 mg PO BID PRN fluoxetine 20 mg PO QAM hydrochlorothiazide 25 mg PO QAM omeprazole 20 mg PO QAM simvastatin 20 mg PO BEDTIME zolpidem 10 mg PO BEDTIME PRN Tobacco use date assessed: 08/01/24 Fall risk assessment: No Falls in past year Last assessed Fall Risk: 04/07/25 Dental Screening Dental Screen Date: 08/01/24 HPI 1 mo follow up HPI Details History The patient is a 64-year-old female presenting for a one-month follow-up to discuss lab results and persistent abdominal pain. Fatty liver disease and Abdominal Pain: - The patient complains of persistent st omach discomfort located under her right ribcage, which is suspected to be related to fatty liver disease. - She notes that the pain can flare up, particularly after consuming oily or fatty foods. - Recent lab results from January showed an improvement in her liver enzymes compared to December, with her AST decreasing from 40 to 35 and her ALT decreasing from 50 to 45. - The patient reports abstaining from al cohol due to her liver concerns and a fa harman history of alcoholism. Obesity: - The patient expresses frustration with her inability to lose weight, stating her current weight is 193 pounds, the highest she has ever been. - She aims to lose at least 50 pounds an d has been waiting since the summer for a weight management appointment, which has been canceled twice and rescheduled for May 04. - She exercises three times a week by wa lking five miles on the treadmill and using a stationary bike. - She reports a diet that excludes break fast, includes a light lunch, and avoids sweets, potatoes, and pasta, though she does drink Diet Coke. - A previous attempt with [facility] ye ars ago was successful, but a recent trial resulted in only a 7-pound weight loss. - She declined bariatric surgery, prefer ring non-surgical weight loss methods. Skin Rash: - The patient was previously evaluated f or a skin rash around her neck, which has now completely resolved. - She saw a credit risk manager who performed cryotherapy on her face and back, but the cause of the rash was not determined. Medical History: - Fatty liver disease, suspected - Elevated liver enzymes - Obesity, with a current weight of 193 lbs - History of skin rash, resolved - Gastritis symptoms - Psychiatric care with a psychiatrist Social History: - Substance Use: The patient denies alco hol use, citing that her father from alcoholism at age 38. 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 - Tries to eat a balanced diet, avoids s weets, pasta, and potatoes. - Routinely skips breakfast and has a li ght lunch. - Consumes Diet Coke. - Exercise: She exercises three times a week, which includes walking five miles on a treadmill and using a stationary bike. - Psychosocial: She sees a psychiatrist and notes her weight issues began after the of someone named Mahesh. Family History: - Father at age 38 from alcoholism. Problem List - Fatty liver disease - Elevated liver enzymes - Obesity - History of skin rash - Abdominal pain Diagnostic results - Labs (January): Liver function tests sh ow improvement from December. - AST: 35 (previously 40 in December). - ALT: 45 (previously 50 in December). [place] of Care - The patient has previously seen a derm atologist for a skin rash and cryotherapy. - She has a pending appointment with a eight management clinic. - The patient sees a psychiatrist. Plan - Reassured the patient that her liver e nzymes are improving and there is no cause for immediate concern; symptoms are expected to resolve with weight loss and a healthy diet. - Advised the patient to begin counting calories with a target of 1,700 kcal/day for 0.5 lb weekly weight loss, or 1,500 kcal/day for 1 lb weekly weight loss. - Recommended purchasing a kitchen scale to measure food portions accurately, especially protein, with a goal of 3 ounces of chicken, turkey, or fish per meal. - Instructed to count calories for all f ood items, including vegetables and fruits. - Advised to avoid pasta and potatoes. - Recommended consuming cooked vegetable s to prevent gastritis symptoms and drinking homemade chicken broth with supper for its health benefits and satiety. - Encouraged the patient to proceed with her weight management clinic appointment. - Provided patient education and motivat ion for self-directed weight loss. - Scheduled a follow-up visit in to monitor progress. Review of Systems General: No fever no chills neurological: No headaches no dizziness ear nose throat: No sore throat no hearing difficulty no ear pain cardiovascular: No syncope, no chest pain, no palpitations gastrointestinal: No nausea vomiting or diarrhea endocrine: No polyuria polydipsia no heat intolerance genitourinary: No dysuria skin: No new complaints Physical Exam general: No acute distress HEENT: No acute findings neck: Supple, skin rash resolved respiratory system: Able to talk in full sentences, no audible wheeze no stridor cardiovascular: S1-S2 RRR gastrointestinal: Soft bowel sounds positive nontender extremities: No new findings MATH TUTOR: Alert awake oriented x3 motor intact skin: Normal turgor, scar present on the neck [facility] Medical History Arthritis Hiatal hernia HTN (hypertension) Oropharyngeal mass Cord compression Hyperosmia Snoring Cervicogenic headache Depression, major, severe recurrence Lipid disorder Surgical History History of esophagogastroduodenoscopy (EGD) Hx of dilation and curettage History of laryngoscopy History of colonoscopy History of total abdominal hysterectomy History of section History of appendectomy Hx of cholecystectomy History of breast biopsy Family History Mother Breast cancer COPD (chronic obstructive pulmonary disease) Maternal Grandmother No problems noted. Paternal Grandmother Breast cancer Maternal Aunt Breast cancer Other Mental health disorder Substance use disorder Social History Household Members: None Housing: House Are you a primary skin care specialist to a significant other at home: No Do you presently have visiting nurse or other home services: No Alcohol intake: never Patient Tobacco Use Status: Never used Tobacco e-Cigarette/Vaping Use: Never Used service: No Current occupational status: retired Cognitive needs: No Hearing needs: No Vision needs: No Questionnaire Thrive Questionnaire Date Thrive assessed: 07/25/24 I am a: Patient What is your living situation today?: I have a steady place to live Within the past 12 months, did the food you bought not last and you didn't have the money to get more?: Never true Within the past 12 months, did you worry whether your food would run out before you got money to buy more?: Never true Do you have trouble paying for medicines?: No Do you have trouble getting transportation to medical appointments?: No Do you have trouble paying your heating and electricity bill?: No Do you have trouble taking care of your child, family member or friend?: No Do you have trouble with day-to-day activities such as bathing, preparing meals, shopping, managing finances, etc.?: No Are you currently unemployed and looking for a job?: No Are you interested in more education?: No Please select the resources that you would like help with: None Currently or been in a relationship where the following occur: No concerns reported THRIVE Score: 0 DANIELA-7 AMB Questionnaire DANIELA-7 Date DANIELA - 7 assessed: 03/10/25 Source: Developed by Drs. Josh Le, Cammie Brennan, Jr Ortiz and colleagues, with an educational nisha from [employer]. Physical exam (Primary Care) Vital Signs: Last Vital Signs Pulse 63 04/07/25 10:55 BP 130/70 04/07/25 10:55 Pulse Ox 97 04/07/25 10:55 Oxygen Delivery Method Room Air 04/07/25 10:55 BMI result Body Mass Index 35.3 Tobacco/Smoking Status: Tobacco use Status Tobacco use date assessed 08/01/24 04/07/25 10:56 Patient Tobacco Use Status Never used Tobacco 04/07/25 10:56 e-Cigarette/Vaping Use Never Used 04/07/25 10:56 Thrive Assessment: Date of Thrive Assessment Date Thrive assessed 07/25/24 04/07/25 10:56 Currently or been in a relationship where the following occur: No concerns reported Coding Level of Care Code Est Pt Level 4 (41289) Diagnoses Abdominal discomfort in right upper quadrant R10.11 LFT elevation R79.89 Anxiety, generalized F41.1 Severe episode of recurrent major depressive disorder, without psychotic features F33.2 Psychotic features: without psychotic features Primary hypertension I10 Hypertension type: primary hypertension Lipid disorder E78.9 Impaired fasting blood sugar R73.01 Class 1 obesity due to excess calories with serious comorbidity and body mass index (BMI) of 33.0 to 33.9 in adult E66.09; Z68.33 Obesity classification: adult class 1 (BMI 30 - 34.9) Serious obesity comorbidity presence: with serious comorbidity Body mass index: BMI 33.0-33.9 Assessment & Plan Assessment & Plan (1) Abdominal discomfort in right upper quadrant: Code(s): R10.11 - Right upper quadrant pain Category: Medical (2) LFT elevation: Code(s): R79.89 - Other specified abnormal findings of blood chemistry Category: Medical (3) Anxiety, generalized: Comment: Treatment through psychiatrist Code(s): F41.1 - Generalized anxiety disorder Category: Medical (4) Depression, major, severe recurrence: Comment: Treatment through psychiatrist Code(s): F33.2 - Major depressive disorder, recurrent severe without psychotic features Category: Medical Qualifiers: Psychotic features: without psychotic features Qualified Code(s): F33.2 - Major depressive disorder, recurrent severe without psychotic features (5) Hypertension: Code(s): I10 - Essential (primary) hypertension Category: Medical Qualifiers: Hypertension type: primary hypertension Qualified Code(s): I10 - Essential (primary) hypertension (6) Lipid disorder: Code(s): E78.9 - Disorder of lipoprotein metabolism, unspecified Category: Medical (7) Impaired fasting blood sugar: Code(s): R73.01 - Impaired fasting glucose Category: Medical (8) Obesity due to excess calories: Code(s): E66.09 - Other obesity due to excess calories Category: Medical Qualifiers: Obesity classification: adult class 1 (BMI 30 - 34.9) Serious obesity comorbidity presence: with serious comorbidity Body mass index: BMI 33.0-33.9 Qualified Code(s): E66.09 - Other obesity due to excess calories; Z68.33 - Body mass index [BMI] 33.0-33.9, adult Plan Fatty liver disease and Abdominal Pain: - The patient complains of persistent stomach discomfort located under her right ribcage, which is suspected to be related to fatty liver disease. - She notes that the pain can flare up, particularly after consuming oily or fatty foods. - Recent lab results from January showed an improvement in her liver enzymes compared to December, with her AST decreasing from 40 to 35 and her ALT decreasing from 50 to 45. - The patient reports abstaining from alcohol due to her liver concerns and a family history of alcoholism. Obesity: - The patient expresses frustration with her inability to lose weight, stating her current weight is 193 pounds, the highest she has ever been. - She aims to lose at least 50 pounds and has been waiting since the summer for a weight management appointment, which has been canceled twice and rescheduled for May 04. - She exercises three times a week by walking five miles on the treadmill and using a stationary bike. - She reports a diet that excludes breakfast, includes a light lunch, and avoids sweets, potatoes, and pasta, though she does drink Diet Coke. - A previous attempt with [employer] years ago was successful, but a recent trial resulted in only a 7-pound weight loss. - She declined bariatric surgery, preferring non-surgical weight loss methods. Skin Rash: - The patient was previously evaluated for a skin rash around her neck, which has now completely resolved. - She saw a credit risk manager who performed cryotherapy on her face and back, but the cause of the rash was not determined. Medical History: - Fatty liver disease, suspected - Elevated liver enzymes - Obesity, with a current weight of 193 lbs - History of skin rash, resolved - Gastritis symptoms - Psychiatric care with a psychiatrist Social History: - Substance Use: The patient denies alcohol use, citing that her father from alcoholism at age 38. 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 - Tries to eat a balanced diet, avoids sweets, pasta, and potatoes. - Routinely skips breakfast and has a light lunch. - Consumes Diet Coke. - Exercise: She exercises three times a week, which includes walking five miles on a treadmill and using a stationary bike. - Psychosocial: She sees a psychiatrist and notes her weight issues began after the of someone named Mahesh. Family History: - Father at age 38 from alcoholism. Problem List - Fatty liver disease - Elevated liver enzymes - Obesity - History of skin rash - Abdominal pain Diagnostic results - Labs (January): Liver function tests show improvement from December. - AST: 35 (previously 40 in December). - ALT: 45 (previously 50 in December). [place] [facility] - The patient has previously seen a credit risk manager for a skin rash and cryotherapy. - She has a pending appointment with a weight management clinic. - The patient sees a psychiatrist. Plan - Reassured the patient that her liver enzymes are improving and there is no cause for immediate concern; symptoms are expected to resolve with weight loss and a healthy diet. - Advised the patient to begin counting calories with a target of 1,700 kcal/day for 0.5 lb weekly weight loss, or 1,500 kcal/day for 1 lb weekly weight loss. - Recommended purchasing a kitchen scale to measure food portions accurately, especially protein, with a goal of 3 ounces of chicken, turkey, or fish per meal. - Instructed to count calories for all food items, including vegetables and fruits. - Advised to avoid pasta and potatoes. - Recommended consuming cooked vegetables to prevent gastritis symptoms and dri nking homemade chicken broth with supper for its health benefits and satiety. - Encouraged the patient to proceed with her weight management clinic appointment. - Provided patient education and motivation for self-directed weight loss. - Scheduled a follow-up visit in July to monitor progress.
[2025-04-07 10:55] VITALS: BP 130/70; PULSE 63; O2SAT 97; BMI 35.3
--- OUTSIDE RECORDS SUMMARY | 2025-04-07 13:08 | XMS_ITS | Patient Health Record ---
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 Name Role Phone Jesus NOGUERA, [facility] Provider Josh Lee [phone] Allergies Allergen (clinical drug ingredient) Drug/Non Drug Allergy documented on EMR Reaction Allergy Type Onset Date Status gabapentin Gabapentin Unknown Drug Allergy Activ e codeine Codeine Unknown Drug Allergy Active Reason For Referral No Information Medications Medication SIG (Take, Route, Frequency, Duration) Notes Start Date End Date Status Omeprazole 20 MG TAKE 1 CAPSULE 1/2 T O 1 HOUR BEFORE MORNING MEAL ORALLY ONCE A DAY 30 DAY(S); Duration: 30 Active hydroCHLOROthiazide 25 MG TAKE 1 TABLET BY MOUTH EVERY DAY Oral; Duration: 90 Active Cholestyramine 4 GM/DOSE 1/4 to 1 scoop in 8 ounces of water or orange juice Orally Once a day or every other day to improve diarrhea; Duration: 30 day(s) 05/11/2023 Active Hyoscyamine Sulfate 0.125 MG Use 1 or 2 Sublingual Every 6 hours as needed for abdominal cramps or bloating; Duration: 30 days 05/18/2024 Active Simvastatin 20 MG TAKE 1 TABLET BY TONE TH EVERY DAY AT BEDTIME Oral; Duration: 90 Active Atenolol 50 MG TAKE 1 TABLET BY TONE TH EVERY DAY Oral; Duration: 90 Active Dicyclomine HCl 10 MG 1 or 2 capsules Or ally Every 4 to 6 hours as needed for abdominal pain. You can take it before you eat as well to see if that helps prevent the episodes of abdominal pain after a meal.; Duration: 30 day(s) 03/26/2024 Active Ambien 10 MG 1 tablet at bedtime as needed Orally Once a day Active CeleXA 40 MG 0.5 tablet Orally On ce a day; Duration: 30 day(s) Active Immunizations Vaccine Route Administration Date Status [...] Problem Status W/U Status Risk Notes Problem Screening for malignant neoplasm of colon (403199090) Encounter for screening for malignant neoplasm of colon (Z12.11) Active confirmed Problem Diverticular disease of colon (570955172) Diverticulosis of large intestine without perforation or abscess without bleeding (K57.30) Active confirmed Problem Gastroesophageal reflux disease (963245984) Gastroesophageal reflux disease (K21.9) Active confirmed Problem Epigastric pain (23032956) Abdominal pain, epigastric (R10.13) Active confirmed Problem Oropharyngeal dysphagia (69678971) Oropharyngeal dysphagia (R13.12) Active confirmed Problem Chronic gastritis (5773814) Chronic gastritis (K29.50) Active confirmed Problem Irritable bowel syndrome (23360124) Irritable bowel syndrome with both constipation and diarrhea (K58.2) Active confirmed Problem Globus sensation (175430214) Globus sensation (F45.8) Active confirmed Problem Globus sensation (805735287) Globus sensation (R09.A2) Active confirmed Encounters Encounter Location Date Provider Diagnosis [facility] [address] [place] [address] 04/25/2024 Josh Minor Plan Of Treatment Pending Test Test Name Order Date CELIAC PANEL #10 05/11/2023 US abdomen complete 03/26/2024 Future Test Test Name Order Date UPPER GI ENDOSCOPY 05/11/2023 COLONOSCOPY 05/11/2023 Insurance Providers Payer Name Payer Address Payer Phone Subscriber Number Group Number Insured Name Patient Relationship to Insured Coverage Start Date Coverage End Date MEDICARE OF [place] [address] [place] [address] [id number] PARI SUAZO Self - patient is the insured [employer] ATTN CLAIMS [address] [place] [address] [id number] PARI SUAZO Self - patient is the insured Medical [...]
== END 2025-04-07 11:19 | disposition home or self-care (01) ==
LOC: HO.HMCC 10:53
PROVIDERS: PCP Internal Medicine; Visit Provider Internal Medicine
DX: R10.11 Right upper quadrant pain (principal); R79.89 Other specified abnormal findings of blood chemistry; F41.1 Generalized anxiety disorder; F33.2 Major depressive disorder, recurrent severe without psychotic features; I10 Essential (primary) hypertension; E78.9 Disorder of lipoprotein metabolism, unspecified; R73.01 Impaired fasting glucose; E66.09 Other obesity due to excess calories; Z68.33 Body mass index [BMI] 33.0-33.9, adult

== ENCOUNTER → 2025-04-07 10:53 | Outpatient (BNVA) | payer MEDICARE, SELFPAY | PROVIDERS: PCP Internal Medicine; Visit Provider Internal Medicine | DX: R10.11 Right upper quadrant pain (principal); R79.89 Other specified abnormal findings of blood chemistry; F41.1 Generalized anxiety disorder; F33.2 Major depressive disorder, recurrent severe without psychotic features; I10 Essential (primary) hypertension; E78.9 Disorder of lipoprotein metabolism, unspecified; R73.01 Impaired fasting glucose; E66.09 Other obesity due to excess calories; Z68.33 Body mass index [BMI] 33.0-33.9, adult; Z71.3 Dietary counseling and surveillance | CPT/HCPCS: 99212 ==

== ENCOUNTER 2025-05-04 08:10 | Outpatient (AMB) | payer MEDICARE, SELFPAY ==
--- OUTSIDE RECORDS SUMMARY | 2023-11-28 09:00 | XMS_ITS ---
Author Organization [facility] Address [address] [place] [phone] Care Team Providers Care Counselor Nurs[employer] Name Role Phone Jesus NOGUERA, See Primary Care Provider Josh Lee [phone] REASON FOR VISIT Patient presents today for a Hiatal hernia and gastritis, pain in rib cage Encounters Encounter Location Date Provider Diagnosis [facility] [address] [place] [phone] 11/28/2023 Josh Minor Plan Of Treatment No Information Progress Notes * PARI SUAZO LDOB: (65 yo F)Acc No.[id number]:11/28/2023 Progress Notes Patient: PARI GALVEZ Provider: Raffi Minor MD :1960 A ge:63 Y S ex:Female Date:11/28/2023 Address:[address] [place], [place] [id number] Pcp:See Lee MD Subjective: * Chief Complaints: * P atient presents today for a Hiatal hernia and gastritis, pain in rib cage * The named appointment provid er may or may not be the originator of this progress note, and it is not deemed complete until electronically signed by the appointment provider. Sign off status: Pending * Provider: Raffi Minor MD Date: 0 11/28/2023 Generated for Cynthiai jen/Dorisg/eTransmitting on: 1 07/05/2024 08:20 AM EST
--- OUTSIDE RECORDS SUMMARY | 2025-05-04 08:20 | XMS_ITS | Patient Health Record ---
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 Name Role Phone Jesus NOGUERA, [facility] Provider Josh Lee [phone] Allergies Allergen (clinical drug ingredient) Drug/Non Drug Allergy documented on EMR Reaction Allergy Type Onset Date Status codeine Codeine Unknown Drug Allergy Active gabapentin Gabapentin Unknown Drug Allergy Activ e Reason For Referral No Information Medications Medication SIG (Take, Route, Frequency, Duration) Notes Start Date End Date Status Omeprazole 20 MG Capsule Delayed Release TAKE 1 CAPSULE 1/2 TO 1 HOUR BEFORE MORNING MEAL ORALLY ONCE A DAY 30 DAY(S); Duration: 30 Active hydroCHLOROthiazide 25 MG Tablet TAKE 1 TABLET BY MOUTH EVERY DAY Oral; Duration: 90 Active Cholestyramine 4 GM/DOSE Powder 1/4 to 1 scoop in 8 ounces of water or orange juice Orally Once a day or every other day to improve diarrhea; Duration: 30 day(s) 05/11/2023 Active Hyoscyamine Sulfate 0.125 MG Tablet Sublingual Use 1 or 2 Sublingual Every 6 hours as needed for abdominal cramps or bloating; Duration: 30 days 05/18/2024 Active Simvastatin 20 MG Tablet TAKE 1 TABLET B Y MOUTH EVERY DAY AT BEDTIME Oral; Duration: 90 Active Atenolol 50 MG Tablet TAKE 1 TABLET BY MOUTH EVERY DAY Oral; Duration: 90 Active Dicyclomine HCl 10 MG Capsule 1 or 2 cap sules Orally Every 4 to 6 hours as needed for abdominal pain. You can take it before you eat as well to see if that helps prevent the episodes of abdominal pain after a meal.; Duration: 30 day(s) 03/26/2024 Active Ambien 10 MG Tablet 1 tablet at bedtime as needed Orally Once a day Active CeleXA 40 MG Tablet 0.5 tablet Orally Once a day; Duration: 30 day(s) Active Immunizations Vaccine Route Administration Date Status Comme nts Influenza Unknown 03/05/2024 Administered Pneumococcal Unknown 03/20/2023 Administered Social History Tobacco Use: Social History Observation Description Date Details (start date - stop date) Never Smoker NA - NA Social History Drugs/Alcohol: Social Info Question Answer Notes Alcohol Screen Did you have a drink containing alcohol in the past year? No Points 0 Interpretation Negative Tobacco Use: Social Info Question Answer Notes Tobacco Use/Smoking Patient is a nonsmoker Additional Details Category Social Info Options Details Miscellaneous: Marital status: Occupation: retired Problems Problem Type SNOMED Code ICD Code Onset Dates Problem Status W/U Status Risk Notes Problem Screening for malignant neoplasm of colon (877607982) Encounter for screening for malignant neoplasm of colon (Z12.11) Active confirmed Problem Diverticular disease of colon (552407619) Diverticulosis of large intestine without perforation or abscess without bleeding (K57.30) Active confirmed Problem Gastroesophageal reflux disease (168925907) Gastroesophageal reflux disease (K21.9) Active confirmed Problem Epigastric pain (71354154) Abdominal pain, epigastric (R10.13) Active confirmed Problem Oropharyngeal dysphagia (59108002) Oropharyngeal dysphagia (R13.12) Active confirmed Problem Chronic gastritis (8426156) Chronic gastritis (K29.50) Active confirmed Problem Irritable bowel syndrome (40942325) Irritable bowel syndrome with both constipation and diarrhea (K58.2) Active confirmed Problem Globus sensation (180742203) Globus sensation (F45.8) Active confirmed Problem Globus sensation (994116043) Globus sensation (R09.A2) Active confirmed Plan Of Treatment Pending Test Test Name Order Date CELIAC PANEL #10 05/11/2023 US abdomen complete 03/26/2024 Future Test Test Name Order Date UPPER GI ENDOSCOPY 05/11/2023 COLONOSCOPY 05/11/2023 Insurance Providers Payer Name Payer Address Payer Phone Subscriber Number Group Number Insured Name Patient Relationship to Insured Coverage Start Date Coverage End Date MEDICARE OF [facility] [address] [place] [id number] PARI SUAZO Self - patient is the insured MED[employer] ATTN CLAIMS [address] [place] [address] [id number] PARI SUAZO Self - patient is the insured Medical (General) History Medical History History ICD Code Hypertension Hyperlipidemia Denies [place],DM,CVA,Lung disease,renal dise ase Negative colonoscopy in 2008 Upper endoscopy in July of 2023-small hiatal hernia but no esophagitis, Bess's esophagus, H. pylori, or celiac disease Colonoscopy in July was negative for polyps, inflammatory bowel disease, and microscopic colitis Surgical History Surgery Date(Month/Year) C-sections hysterectomy cholecystectomy/appy C-spine 11/07/2023
--- NOTE | 2025-05-04 12:51 | A.OFFVIS_ITS ---
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: Details: Start time: 12.44pm, End time: 1.44pm ?I spent 55 minutes speaking with the patient on the phone plus an additional 5 minutes reviewing and updating records for a total of 60 minutes HPI Comments Details: Previous weight loss efforts: self diets and exercise Wakes up: 8am, Sleeps: 10pm Breakfast: skips Lunch: 11.30am (tuna sandwich, soups, salad) Dinner: 6pm (chicken, fish, pasta) Snacks: 8pm (crackers with peanut butter, cereal) Exercise: none, Gym membership Beverages: Coffee: none, Tea: 2 cups/d plain, Soda: Coke zero, Juice: none, ETOH: none PFSH Medical History (Updated 05/04/25 @ 13:28 by Vern Pinon MD) Insomnia Hyperlipidemia BMI 34.0-34.9,adult Obesity Arthritis Hiatal hernia HTN (hypertension) Oropharyngeal mass Cord compression Hyperosmia Snoring Cervicogenic headache Depression, major, severe recurrence Lipid disorder Surgical History History of esophagogastroduodenoscopy (EGD) Hx of dilation and curettage History of laryngoscopy History of colonoscopy History of total abdominal hysterectomy History of section History of appendectomy Hx of cholecystectomy History of breast biopsy Family History Mother Breast cancer COPD (chronic obstructive pulmonary disease) Maternal Grandmother No problems noted. Paternal Grandmother Breast cancer Maternal Aunt Breast cancer Other Mental health disorder Substance use disorder Social History Household Members: None Housing: House Are you a primary manager intensive care unit to a significant other at home: No Do you presently have visiting nurse or other home services: No Alcohol intake: never Patient Tobacco Use Status: Never used Tobacco e-Cigarette/Vaping Use: Never Used service: No Current occupational status: retired Cognitive needs: No Hearing needs: No Vision needs: No Physical Exam Vital Signs: BMI result Body Mass Index 35.3 Telehealth Telehealth Telehealth Platform: Telephone Location of provider rendering services: practice address Location of patient: address on file Patient Identification confirmed using: Name, : Yes Telehealth method: voice only Patient verbally consented to treatment: Yes Patient verbally consented to billing insurance company: Yes Patient informed of any privacy concerns related to visit: Yes Minutes spent on Phone/Video with Pt.: 60 Assessment & Plan Assessment & Plan (1) Obesity: Code(s): E66.9 - Obesity, unspecified Category: Medical Qualifiers: Obesity type: due to excess calories Obesity classification: adult class 2 (BMI 35 - 39.9) Serious obesity comorbidity presence: with serious comorbidity Body mass index: BMI 35.0-35.9 Qualified Code(s): E66.812 - Obesity, class 2; Z68.35 - Body mass index [BMI] 35.0-35.9, adult Plan: 1. As we discussed, based on your present BMI you are approximately 65lbs overweight. In my opinion, for any weight loss strategy to be successful should have a high probability to help you lose at least 60lbs out of 65lbs of the extra weight you carry. We discussed in detail the available therapeutic options: 1) our lifestyle intervention program that has an average weight loss of 10% in 3 months.?Some patients continue it for longer and have lost over 50lbs but this is not common. Our lifestyle program can be provided by me. I will provide you with a link to use the raysa if you choose to do so. We use protein shakes and protein bars to replace some of the meals of the day and cover your appetite better. We will decide together the exact combination. 2) Weight loss medications: these can be used in conjunction with our lifestyle program or you may choose to use them without following a lifestyle program from my program but your own. One option is the Phentermine pill which is affordable as self pay option. It is well tolerated and most common side effects include blood pressure elevation, dry mouth, difficulty sleeping and heart palpitations. However, it can raise the blood pressure and it may not be the best option for you since you have high blood pressure already. 3) Your insurance does not cover the new weight loss shots. We also discussed that you can self pay for the weight loss injections and the cost is $249 for the first month and $499 for any other month thereafter. These payments go to the drug company directly and not to us. As we discussed, this is not a usp solution, as most patients put all the weight back once they are off the medication. There is also an option to get generic versions from compound pharmacies at cheaper rates but their efficacy and how they are manufactured is not that clear. 3) We also discussed about the lap sleeve gastrectomy. In my opinion this is the best option to solve your problem based on your situation and at the same time repair the diaphragmatic hernia you have. This will address the reflux as well as the frequent runs to the bathrooom you experience. ?I emphasized the importance of close follow-up, adherence to instructions and good communication. The surgery does not replace the need to change your lifestlyle which is the cause of the obesity problem. The surgery provides the motivation to try again to change your lifestyle, it reduces the appetite and make the transition to a better lifestyle easier and doubles the amount of weight you would lose compared to doing the lifestyle change without the surgery. You will need to be on a liquid diet with protein shakes for 2 weeks before surgery to maximize weight loss and boost your nutritional status to recover better from surgery and also for the first two weeks after surgery to let the stomach heal before we introduce other foods. After the first 2 weeks we will introduce protein bars and soft foods like scrambled eggs, cottage cheese and yogurt and after the 6th week will introduce meat, fish and cooked vegetables in small amounts. Over time you should be able to eat everything in small amounts. Side effects like nausea, vomiting, heartburn or abdominal pain are not common in the practice unless you are not following in the practice. This operation requires lifetime commitment to following in our practice and communication with me. You will much less weight and experience side effects if you don?t communicate or not following in the practice. Complications are rare and in our practice is about 1/10 of the national average. 4) Very Important: We do extensive research in this practice. In very recent research we did, we found that patients who did the lifestyle program without medications followed by weight loss surgery, lost twice as much as they would lose if they used the shots for the same period of time and with the two groups being completely matched in terms of demographics and starting weights. Another research study we did found that when we compared patients who did our lifestyle program without or with the weight loss shots, they lost the same weight but they did not lose any muscle mass. The patients who used the shots lost about 3% of their muscle mass in 3 months which translates to 5-15lbs of actual muscle mass depending on each patient's initial weight. That's not good because it makes you frail and weak and reduces your metabolism. 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 Preoperative weight loss is not commonly used by many practices especially at this magnitude, but it is our philosophy and makes a huge difference. 2. As we discussed, please buy a body composition scale and a stationary bike. Please let me know what you decide.?
[2025-05-04 13:00] VITALS: BMI 35.3
== END 2025-05-04 13:45 | disposition home or self-care (01) ==
LOC: HO.HBS 08:10
PROVIDERS: PCP Internal Medicine; Visit Provider Surgery
DX: E66.812 Obesity, class 2 (principal); Z68.35 Body mass index [BMI] 35.0-35.9, adult
CPT/HCPCS: 99205